=== PATIENT | male | born 1970 | race Caucasian/White ===

== ENCOUNTER 2019-11-08 07:44 | Outpatient (RCR) | payer OTHER, SELFPAY ==
[2019-09-11 09:08] LABS: Basophils Percent Auto 0.4 % (0.2-1.2); Eosinophils Absolute Auto 0.1 K/mm3 (0-0.3); Hematocrit 39.5 % (42.0-52.0); Hemoglobin 12.6 g/dL (14.0-18.0); Lymphocytes Percent Auto 32.7 % (18.3-44.2); Mean Corpuscular HGB Conc 31.9 g/dl (32-36); Mean Corpuscular Hemoglobin 27.1 pg (26-34); Mean Corpuscular Volume 84.9 fl (80-100); Mean Platelet Volume 10.8 fl (7.4-10.4); Monocytes Absolute Auto 0.4 K/mm3 (0.1-0.6); Monocytes Percent Auto 9.6 % (2.6-8.5); Neutrophils Absolute Auto 2.5 K/mm3 (1.3-6.7); Neutrophils Percent Auto 55.3 % (45.5-73.1); Platelet Count Result 184 k/mm3 (150-375); Red Blood Count 4.65 M/mm3 (4.6-6.20); Red Cell Distribution Width 14.6 % (11.5-14.5); White Blood Count 4.6 K/mm3 (4.5-10.0)
[2019-09-11 09:45] LABS: Alanine Aminotransferase 26 U/L (4-50); Albumin Level 4.2 g/dL (3.5-5.1); Alkaline Phosphatase 52 U/L (38-126); Aspartate Amino Transferase 28 U/L (17-59); Bilirubin,Total 0.2 mg/dL (0.2-1.3); Blood Urea Nitrogen 32 mg/dL (9-20); Calcium 9.2 mg/dL (8.4-10.2); Carbon Dioxide 23 mmol/L (22-30); Chloride 107 mmol/L (98-107); Estimated Glomerular Filt Rate 49; Glucose 88 mg/dL (75-110); Potassium 4.2 mmol/L (3.4-5.0); Sodium 138 mmol/L (137-145)
[2019-09-13 13:16] LABS: Everolimus 4.3 ng/mL (***); Tacrolimus Prograf 4.7 mcg/L
[2019-09-14 05:12] LABS: GGT 26 U/L (3-95)
[2019-11-08 08:25] LABS: Basophils Percent Auto 0.4 % (0.2-1.2); Eosinophils Absolute Auto 0.1 K/mm3 (0-0.3); Eosinophils Percent Auto 1.5 % (0-4.4); Hematocrit 41.1 % (42.0-52.0); Hemoglobin 12.8 g/dL (14.0-18.0); Lymphocytes Absolute Auto 1.41 K/mm3 (0.9-3.2); Lymphocytes Percent Auto 30.8 % (18.3-44.2); Mean Corpuscular HGB Conc 31.1 g/dl (32-36); Mean Corpuscular Hemoglobin 26.3 pg (26-34); Mean Corpuscular Volume 84.4 fl (80-100); Mean Platelet Volume 11.6 fl (7.4-10.4); Monocytes Absolute Auto 0.5 K/mm3 (0.1-0.6); Monocytes Percent Auto 11.6 % (2.6-8.5); Neutrophils Absolute Auto 2.6 K/mm3 (1.3-6.7); Neutrophils Percent Auto 55.7 % (45.5-73.1); Platelet Count Result 178 k/mm3 (150-375); Red Blood Count 4.87 M/mm3 (4.6-6.20); Red Cell Distribution Width 14.2 % (11.5-14.5); White Blood Count 4.6 K/mm3 (4.5-10.0)
[2019-11-08 08:36] LABS: Alanine Aminotransferase 27 U/L (4-50); Albumin Level 4.5 g/dL (3.5-5.1); Alkaline Phosphatase 67 U/L (38-126); Aspartate Amino Transferase 23 U/L (17-59); Bilirubin,Total 0.2 mg/dL (0.2-1.3); Blood Urea Nitrogen 35 mg/dL (9-20); Calcium 9.5 mg/dL (8.4-10.2); Carbon Dioxide 22 mmol/L (22-30); Chloride 103 mmol/L (98-107); Estimated Glomerular Filt Rate 49; Glucose 93 mg/dL (75-110); Potassium 4.3 mmol/L (3.4-5.0); Sodium 136 mmol/L (137-145)
[2019-11-11 04:40] LABS: GGT 25 U/L (3-95)
[2019-11-11 07:07] LABS: Tacrolimus Prograf 2.9 mcg/L
== END 2019-12-10 23:59 | disposition home or self-care (01) ==
LOC: ANHLAB 07:44
PROVIDERS: PCP Family Medicine Adolescent Medicine
DX: Z51.81 Encounter for therapeutic drug level monitoring (principal); Z79.899 Other long term (current) drug therapy; Z94.4 Liver transplant status
CPT/HCPCS: 36415; 80053; 80169; 80197; 82977; 85025

== ENCOUNTER 2020-03-17 08:59 | Outpatient (RCR) | payer OTHER, SELFPAY ==
[2020-03-17 09:31] LABS: Basophils Percent Auto 0.5 % (0.2-1.2); Eosinophils Absolute Auto 0.1 K/mm3 (0-0.3); Eosinophils Percent Auto 1.8 % (0-4.4); Hematocrit 36.6 % (42.0-52.0); Hemoglobin 11.8 g/dL (14.0-18.0); Immature Granulocyte Absolute 0.01 K/mm3 (0.00-0.031); Immature Granulocyte Percent A 0.2 % (0-0.5); Lymphocytes Absolute Auto 1.28 K/mm3 (0.9-3.2); Lymphocytes Percent Auto 29.2 % (18.3-44.2); Mean Corpuscular HGB Conc 32.2 g/dl (32-36); Mean Corpuscular Hemoglobin 27.5 pg (26-34); Mean Corpuscular Volume 85.3 fl (80-100); Mean Platelet Volume 10.2 fl (7.4-10.4); Monocytes Absolute Auto 0.6 K/mm3 (0.1-0.6); Neutrophils Absolute Auto 2.4 K/mm3 (1.3-6.7); Neutrophils Percent Auto 55.3 % (45.5-73.1); Platelet Count Result 186 k/mm3 (150-375); Red Blood Count 4.29 M/mm3 (4.6-6.20); Red Cell Distribution Width 13.3 % (11.5-14.5); White Blood Count 4.4 K/mm3 (4.5-10.0)
[2020-03-17 09:43] LABS: Alanine Aminotransferase 51 U/L (4-50); Albumin Level 4.1 g/dL (3.5-5.1); Alkaline Phosphatase 105 U/L (38-126); Aspartate Amino Transferase 42 U/L (17-59); Bilirubin,Total 0.2 mg/dL (0.2-1.3); Blood Urea Nitrogen 27 mg/dL (9-20); Calcium 8.8 mg/dL (8.4-10.2); Carbon Dioxide 23 mmol/L (22-30); Chloride 110 mmol/L (98-107); Estimated Glomerular Filt Rate 46; Glucose 90 mg/dL (75-110); Potassium 4.7 mmol/L (3.4-5.0); Sodium 139 mmol/L (137-145)
[2020-03-18 11:59] LABS: GGT 50 U/L (3-95)
[2020-03-18 21:36] LABS: Everolimus 4.2 ng/mL (***)
== END 2020-06-15 23:59 | disposition home or self-care (01) ==
LOC: ANHLAB 08:59
PROVIDERS: PCP Family Medicine Adolescent Medicine; Visit Provider Internal Medicine Gastroenterology
DX: Z51.81 Encounter for therapeutic drug level monitoring (principal); Z94.4 Liver transplant status; Z79.899 Other long term (current) drug therapy
CPT/HCPCS: 36415; 80053; 80169; 80197; 82977; 85025

== ENCOUNTER 2020-09-15 08:13 | Outpatient (RCR) | payer OTHER, SELFPAY ==
[2020-08-04 08:59] LABS: Basophils Percent Auto 0.5 % (0.2-1.2); Eosinophils Absolute Auto 0.1 K/mm3 (0-0.3); Eosinophils Percent Auto 1.6 % (0-4.4); Hematocrit 38.2 % (42.0-52.0); Hemoglobin 12.2 g/dL (14.0-18.0); Lymphocytes Percent Auto 34.6 % (18.3-44.2); Mean Corpuscular HGB Conc 31.9 g/dl (32-36); Mean Corpuscular Hemoglobin 26.9 pg (26-34); Mean Corpuscular Volume 84.3 fl (80-100); Mean Platelet Volume 10.9 fl (7.4-10.4); Monocytes Absolute Auto 0.4 K/mm3 (0.1-0.6); Monocytes Percent Auto 11.2 % (2.6-8.5); Neutrophils Percent Auto 52.1 % (45.5-73.1); Platelet Count Result 142 k/mm3 (150-375); Red Blood Count 4.53 M/mm3 (4.6-6.20); Red Cell Distribution Width 14.2 % (11.5-14.5); White Blood Count 3.8 K/mm3 (4.5-10.0)
[2020-08-04 09:13] LABS: Alanine Aminotransferase 21 U/L (4-50); Alkaline Phosphatase 58 U/L (38-126); Anion Gap 8 mmol/L (8-16); Aspartate Amino Transferase 25 U/L (17-59); Bilirubin,Total 0.4 mg/dL (0.2-1.3); Blood Urea Nitrogen 30 mg/dL (9-20); Calcium 9.3 mg/dL (8.4-10.2); Carbon Dioxide 25 mmol/L (22-30); Chloride 110 mmol/L (98-107); Estimated Glomerular Filt Rate 46; Glucose 90 mg/dL (75-110); Potassium 4.7 mmol/L (3.4-5.0); Sodium 143 mmol/L (137-145)
[2020-08-06 23:49] LABS: GGT 28 U/L (3-95)
[2020-08-07 07:58] LABS: Tacrolimus Prograf 3.9 mcg/L
[2020-09-15 08:56] LABS: Basophils Percent Auto 0.4 % (0.2-1.2); Eosinophils Percent Auto 0.8 % (0-4.4); Hematocrit 38.3 % (42.0-52.0); Hemoglobin 12.4 g/dL (14.0-18.0); Immature Granulocyte Absolute 0.01 K/mm3 (0.00-0.031); Immature Granulocyte Percent A 0.2 % (0-0.5); Lymphocytes Absolute Auto 1.37 K/mm3 (0.9-3.2); Lymphocytes Percent Auto 28.3 % (18.3-44.2); Mean Corpuscular HGB Conc 32.4 g/dl (32-36); Mean Corpuscular Hemoglobin 27.4 pg (26-34); Mean Corpuscular Volume 84.5 fl (80-100); Mean Platelet Volume 10.4 fl (7.4-10.4); Monocytes Absolute Auto 0.4 K/mm3 (0.1-0.6); Monocytes Percent Auto 8.7 % (2.6-8.5); Neutrophils Percent Auto 61.6 % (45.5-73.1); Platelet Count Result 171 k/mm3 (150-375); Red Blood Count 4.53 M/mm3 (4.6-6.20); Red Cell Distribution Width 14.1 % (11.5-14.5); White Blood Count 4.8 K/mm3 (4.5-10.0)
[2020-09-15 09:11] LABS: Alanine Aminotransferase 23 U/L (4-50); Albumin Level 4.2 g/dL (3.5-5.1); Alkaline Phosphatase 66 U/L (38-126); Anion Gap 7 mmol/L (8-16); Aspartate Amino Transferase 25 U/L (17-59); Bilirubin,Total 0.5 mg/dL (0.2-1.3); Blood Urea Nitrogen 24 mg/dL (9-20); CRP 0.5 mg/dL (<1.0); Calcium 9.5 mg/dL (8.4-10.2); Carbon Dioxide 27 mmol/L (22-30); Chloride 108 mmol/L (98-107); Estimated Glomerular Filt Rate 49; Glucose 88 mg/dL (75-110); Potassium 4.5 mmol/L (3.4-5.0); Sodium 142 mmol/L (137-145)
[2020-09-15 09:21] LABS: Iron 71 ug/dL (49-181)
[2020-09-15 09:30] LABS: Percent Iron Saturation 27 % (20-50)
[2020-09-15 09:53] LABS: Hepatitis B Surface Antigen Negative (Negative)
[2020-09-15 10:10] LABS: Hepatitis B Surface Anti Res Negative
[2020-09-17 22:05] LABS: Tacrolimus Prograf 3.5 mcg/L
[2020-09-18 13:01] LABS: GGT 30 U/L (3-95)
[2020-09-18 20:43] LABS: NIL 0.01 IU/mL; Quantiferon TB Plus, 1T NEGATIVE (NEGATIVE)
[2020-09-23 17:29] LABS: Calprotectin, Stool 16 mcg/g
== END 2020-11-02 23:59 | disposition home or self-care (01) ==
LOC: ANHLAB 08:13
PROVIDERS: PCP Family Medicine Adolescent Medicine; Visit Provider Internal Medicine Gastroenterology
DX: Z51.81 Encounter for therapeutic drug level monitoring (principal); K51.00 Ulcerative (chronic) pancolitis without complications; R19.7 Diarrhea, unspecified; Z94.4 Liver transplant status; Z79.899 Other long term (current) drug therapy
CPT/HCPCS: 36415; 80053; 80197; 82728; 82977; 83540; 83550; 83993; 84443; 85025; 86140; 86480; 86706; 87177; 87209; 87324; 87340

== ENCOUNTER 2021-03-26 10:16 | Outpatient (CLI) | payer OTHER, SELFPAY ==
[2021-04-05 00:57] LABS: Calprotectin, Stool 42 mcg/g
== END 2021-03-26 10:17 | disposition home or self-care (01) ==
PROVIDERS: PCP Family Medicine Adolescent Medicine
DX: K51.00 Ulcerative (chronic) pancolitis without complications (principal); R19.7 Diarrhea, unspecified
CPT/HCPCS: 83993

== ENCOUNTER 2021-06-18 08:33 | Outpatient (RCR) | payer OTHER, SELFPAY ==
[2021-06-18 09:00] LABS: Basophils Percent Auto 0.4 % (0.2-1.2); Eosinophils Absolute Auto 0.1 K/mm3 (0-0.3); Eosinophils Percent Auto 1.6 % (0-4.4); Hematocrit 39.1 % (42.0-52.0); Hemoglobin 12.3 g/dL (14.0-18.0); Immature Granulocyte Absolute 0.01 K/mm3 (0.00-0.031); Immature Granulocyte Percent A 0.2 % (0-0.5); Immature Platelet Fraction Pct 5.7 % (0.9-11.2); Lymphocytes Absolute Auto 1.61 K/mm3 (0.9-3.2); Lymphocytes Percent Auto 32.7 % (18.3-44.2); Mean Corpuscular HGB Conc 31.5 g/dl (32-36); Mean Corpuscular Hemoglobin 26.7 pg (26-34); Mean Corpuscular Volume 84.8 fl (80-100); Mean Platelet Volume 10.8 fl (7.4-10.4); Monocytes Absolute Auto 0.6 K/mm3 (0.1-0.6); Monocytes Percent Auto 11.8 % (2.6-8.5); Neutrophils Absolute Auto 2.6 K/mm3 (1.3-6.7); Neutrophils Percent Auto 53.3 % (45.5-73.1); Platelet Count Result 146 k/mm3 (150-375); Red Blood Count 4.61 M/mm3 (4.6-6.20); Red Cell Distribution Width 14.4 % (11.5-14.5); White Blood Count 4.9 K/mm3 (4.5-10.0)
[2021-06-18 09:08] LABS: Alanine Aminotransferase 24 U/L (4-50); Albumin Level 4.2 g/dL (3.5-5.1); Alkaline Phosphatase 71 U/L (38-126); Anion Gap 6 mmol/L (8-16); Aspartate Amino Transferase 26 U/L (17-59); Bilirubin,Total 0.3 mg/dL (0.2-1.3); Blood Urea Nitrogen 31 mg/dL (9-20); Calcium 9.2 mg/dL (8.4-10.2); Carbon Dioxide 25 mmol/L (22-30); Chloride 105 mmol/L (98-107); Estimated Glomerular Filt Rate 49; Glucose 94 mg/dL (65-110); Potassium 4.2 mmol/L (3.4-5.0); Sodium 136 mmol/L (137-145)
[2021-06-21 05:50] LABS: Tacrolimus Prograf 4.1 mcg/L
[2021-06-21 20:06] LABS: GGT 38 U/L (3-95)
== END 2021-09-16 23:59 | disposition home or self-care (01) ==
LOC: ANHLAB 08:33
PROVIDERS: PCP Family Medicine Adolescent Medicine; Visit Provider Internal Medicine Gastroenterology
DX: Z51.81 Encounter for therapeutic drug level monitoring (principal); Z94.4 Liver transplant status; Z79.899 Other long term (current) drug therapy
CPT/HCPCS: 36415; 80053; 80169; 80197; 82977; 85025; 85055

== ENCOUNTER 2021-10-28 08:42 | Outpatient (RCR) | payer OTHER, SELFPAY ==
[2021-10-28 10:12] LABS: Basophils Percent Auto 0.3 % (0.2-1.2); Eosinophils Absolute Auto 0.1 K/mm3 (0-0.3); Hematocrit 38.4 % (42.0-52.0); Hemoglobin 12.2 g/dL (14.0-18.0); Immature Granulocyte Absolute 0.01 K/mm3 (0.00-0.031); Immature Granulocyte Percent A 0.3 % (0-0.5); Lymphocytes Absolute Auto 1.33 K/mm3 (0.9-3.2); Lymphocytes Percent Auto 33.8 % (18.3-44.2); Mean Corpuscular HGB Conc 31.8 g/dl (32-36); Mean Corpuscular Hemoglobin 26.9 pg (26-34); Mean Corpuscular Volume 84.6 fl (80-100); Mean Platelet Volume 10.9 fl (7.4-10.4); Monocytes Absolute Auto 0.6 K/mm3 (0.1-0.6); Neutrophils Percent Auto 49.6 % (45.5-73.1); Platelet Count Result 165 k/mm3 (150-375); Red Blood Count 4.54 M/mm3 (4.6-6.20); Red Cell Distribution Width 14.3 % (11.5-14.5); White Blood Count 3.9 K/mm3 (4.5-10.0)
[2021-10-28 10:30] LABS: Alanine Aminotransferase 26 U/L (4-50); Albumin Level 4.7 g/dL (3.5-5.1); Alkaline Phosphatase 100 U/L (38-126); Anion Gap 10 mmol/L (8-16); Aspartate Amino Transferase 27 U/L (17-59); Bilirubin,Total 0.3 mg/dL (0.2-1.3); Blood Urea Nitrogen 30 mg/dL (9-20); Calcium 9.1 mg/dL (8.4-10.2); Carbon Dioxide 19 mmol/L (22-30); Chloride 111 mmol/L (98-107); Estimated Glomerular Filt Rate 45; Glucose 83 mg/dL (65-110); Potassium 4.5 mmol/L (3.4-5.0); Sodium 140 mmol/L (137-145)
[2021-10-31 15:41] LABS: GGT 62 U/L (3-95)
[2021-11-02 00:06] LABS: Everolimus 3.3 ng/mL (***); Tacrolimus Prograf 4.4 mcg/L
== END 2022-01-26 23:59 | disposition home or self-care (01) ==
LOC: ANHLAB 08:42
PROVIDERS: PCP Family Medicine Adolescent Medicine; Visit Provider Internal Medicine Gastroenterology
DX: Z94.4 Liver transplant status (principal); Z79.899 Other long term (current) drug therapy
CPT/HCPCS: 36415; 80053; 80169; 80197; 82977; 85025

== ENCOUNTER 2022-02-15 08:46 | Outpatient (CLI) | payer OTHER, SELFPAY ==
[2022-02-15 10:47] LABS: Folic Acid 12.5 ng/mL (2.76->20)
[2022-02-22 12:28] LABS: Testosterone Total 220 ng/dL (250-1100)
== END 2022-02-15 08:47 | disposition home or self-care (01) ==
LOC: ANHLAB 08:48
PROVIDERS: PCP Family Medicine Adolescent Medicine; Visit Provider Family Medicine Adolescent Medicine
DX: R53.83 Other fatigue (principal); D64.9 Anemia, unspecified
CPT/HCPCS: 36415; 82607; 82746; 84403; 84443

== ENCOUNTER 2022-03-08 08:49 | Outpatient (CLI) | payer OTHER, SELFPAY ==
[2022-03-08 09:47] LABS: Iron 29 ug/dL (49-181)
[2022-03-08 09:59] LABS: Percent Iron Saturation 12 % (20-50)
[2022-03-12 16:48] LABS: Testosterone Free 49.5 pg/mL (35.0-155.0); Testosterone Total 180 ng/dL (250-1100)
== END 2022-03-08 08:50 | disposition home or self-care (01) ==
PROVIDERS: PCP Family Medicine Adolescent Medicine; Visit Provider Physician Assistant
DX: D64.9 Anemia, unspecified (principal); E29.1 Testicular hypofunction
CPT/HCPCS: 36415; 80053; 80169; 80197; 82728; 82977; 83540; 83550; 84402; 84403; 85025

== ENCOUNTER 2022-04-26 08:37 | Outpatient (CLI) | payer OTHER, SELFPAY ==
[2022-04-29 09:51] LABS: Testosterone Total 123 ng/dL (250-1100)
[2022-05-01 18:43] LABS: Calprotectin, Stool 16 mcg/g
== END 2022-04-26 08:38 | disposition home or self-care (01) ==
LOC: ANHLAB 08:43
PROVIDERS: PCP Family Medicine Adolescent Medicine; Visit Provider Physician Assistant
DX: E29.1 Testicular hypofunction (principal); K51.00 Ulcerative (chronic) pancolitis without complications
CPT/HCPCS: 36415; 80053; 80169; 80197; 82977; 83993; 84403; 85025

== ENCOUNTER 2022-04-26 08:44 | Outpatient (RCR) | payer OTHER, SELFPAY ==
[2022-01-28 09:29] LABS: Basophils Percent Auto 0.5 % (0.2-1.2); Eosinophils Absolute Auto 0.1 K/mm3 (0-0.3); Eosinophils Percent Auto 1.7 % (0-4.4); Hemoglobin 11.6 g/dL (14.0-18.0); Lymphocytes Absolute Auto 1.49 K/mm3 (0.9-3.2); Lymphocytes Percent Auto 36.5 % (18.3-44.2); Mean Corpuscular HGB Conc 31.4 g/dl (32-36); Mean Corpuscular Hemoglobin 26.5 pg (26-34); Mean Corpuscular Volume 84.7 fl (80-100); Mean Platelet Volume 10.6 fl (7.4-10.4); Monocytes Absolute Auto 0.6 K/mm3 (0.1-0.6); Monocytes Percent Auto 15.7 % (2.6-8.5); Neutrophils Absolute Auto 1.9 K/mm3 (1.3-6.7); Neutrophils Percent Auto 45.6 % (45.5-73.1); Platelet Count Result 154 k/mm3 (150-375); Red Blood Count 4.37 M/mm3 (4.6-6.20); Red Cell Distribution Width 14.5 % (11.5-14.5); White Blood Count 4.1 K/mm3 (4.5-10.0)
[2022-01-28 09:47] LABS: Alanine Aminotransferase 22 U/L (4-50); Albumin Level 4.3 g/dL (3.5-5.1); Alkaline Phosphatase 71 U/L (38-126); Anion Gap 6 mmol/L (8-16); Aspartate Amino Transferase 25 U/L (17-59); Bilirubin,Total 0.3 mg/dL (0.2-1.3); Blood Urea Nitrogen 36 mg/dL (9-20); Calcium 8.7 mg/dL (8.4-10.2); Carbon Dioxide 23 mmol/L (22-30); Chloride 110 mmol/L (98-107); Estimated Glomerular Filt Rate 37; Glucose 87 mg/dL (65-110); Sodium 139 mmol/L (137-145)
[2022-01-28 10:23] LABS: Potassium 4.3 mmol/L (3.4-5.0)
[2022-01-31 21:18] LABS: GGT 47 U/L (3-95)
[2022-02-01 20:19] LABS: Everolimus 4.7 ng/mL (***); Tacrolimus Prograf 3.6 mcg/L
[2022-02-15 09:25] LABS: Basophils Percent Auto 0.2 % (0.2-1.2); Eosinophils Absolute Auto 0.1 K/mm3 (0-0.3); Eosinophils Percent Auto 2.1 % (0-4.4); Hematocrit 37.3 % (42.0-52.0); Hemoglobin 11.7 g/dL (14.0-18.0); Immature Granulocyte Absolute 0.01 K/mm3 (0.00-0.031); Immature Granulocyte Percent A 0.2 % (0-0.5); Lymphocytes Absolute Auto 1.29 K/mm3 (0.9-3.2); Lymphocytes Percent Auto 30.4 % (18.3-44.2); Mean Corpuscular HGB Conc 31.4 g/dl (32-36); Mean Corpuscular Hemoglobin 26.6 pg (26-34); Mean Corpuscular Volume 84.8 fl (80-100); Mean Platelet Volume 10.9 fl (7.4-10.4); Monocytes Absolute Auto 0.5 K/mm3 (0.1-0.6); Monocytes Percent Auto 11.8 % (2.6-8.5); Neutrophils Absolute Auto 2.4 K/mm3 (1.3-6.7); Neutrophils Percent Auto 55.3 % (45.5-73.1); Platelet Count Result 150 k/mm3 (150-375); Red Cell Distribution Width 14.3 % (11.5-14.5); White Blood Count 4.3 K/mm3 (4.5-10.0)
[2022-02-15 09:41] LABS: Alanine Aminotransferase 30 U/L (4-50); Albumin Level 4.3 g/dL (3.5-5.1); Alkaline Phosphatase 82 U/L (38-126); Anion Gap 7 mmol/L (8-16); Aspartate Amino Transferase 30 U/L (17-59); Bilirubin,Total 0.2 mg/dL (0.2-1.3); Blood Urea Nitrogen 32 mg/dL (9-20); Calcium 9.3 mg/dL (8.4-10.2); Carbon Dioxide 26 mmol/L (22-30); Chloride 108 mmol/L (98-107); Estimated Glomerular Filt Rate 42; Glucose 95 mg/dL (65-110); Potassium 4.6 mmol/L (3.4-5.0); Sodium 141 mmol/L (137-145)
[2022-02-18 15:05] LABS: Everolimus 5.3 ng/mL (***); Tacrolimus Prograf 3.4 mcg/L
[2022-02-18 17:45] LABS: GGT 55 U/L (3-95)
[2022-03-08 09:11] LABS: Basophils Percent Auto 0.2 % (0.2-1.2); Eosinophils Absolute Auto 0.1 K/mm3 (0-0.3); Eosinophils Percent Auto 1.1 % (0-4.4); Hematocrit 37.3 % (42.0-52.0); Immature Granulocyte Percent A 2.4 % (0-0.5); Lymphocytes Absolute Auto 1.16 K/mm3 (0.9-3.2); Lymphocytes Percent Auto 13.9 % (18.3-44.2); Mean Corpuscular HGB Conc 32.2 g/dl (32-36); Mean Corpuscular Hemoglobin 26.4 pg (26-34); Mean Platelet Volume 9.8 fl (7.4-10.4); Monocytes Percent Auto 11.8 % (2.6-8.5); Neutrophils Absolute Auto 5.9 K/mm3 (1.3-6.7); Neutrophils Percent Auto 70.6 % (45.5-73.1); Platelet Count Result 286 k/mm3 (150-375); Red Blood Count 4.55 M/mm3 (4.6-6.20); White Blood Count 8.3 K/mm3 (4.5-10.0)
[2022-03-08 09:29] LABS: Alanine Aminotransferase 20 U/L (6-50); Albumin Level 3.7 g/dL (3.5-5.1); Alkaline Phosphatase 80 U/L (38-126); Anion Gap 5 mmol/L (8-16); Aspartate Amino Transferase 20 U/L (17-59); Bilirubin,Total 0.2 mg/dL (0.2-1.3); Blood Urea Nitrogen 40 mg/dL (9-20); Calcium 8.7 mg/dL (8.4-10.2); Carbon Dioxide 26 mmol/L (22-30); Chloride 107 mmol/L (98-107); Estimated Glomerular Filt Rate 40; Glucose 91 mg/dL (65-110); Potassium 4.2 mmol/L (3.4-5.0); Sodium 138 mmol/L (137-145)
[2022-03-10 16:04] LABS: GGT 57 U/L (3-95)
[2022-03-10 20:38] LABS: Tacrolimus Prograf 4.3 mcg/L
[2022-04-26 09:19] LABS: Basophils Percent Auto 0.4 % (0.2-1.2); Eosinophils Absolute Auto 0.1 K/mm3 (0-0.3); Hematocrit 36.6 % (42.0-52.0); Hemoglobin 11.2 g/dL (14.0-18.0); Immature Granulocyte Absolute 0.01 K/mm3 (0.00-0.031); Immature Granulocyte Percent A 0.2 % (0-0.5); Lymphocytes Absolute Auto 1.28 K/mm3 (0.9-3.2); Lymphocytes Percent Auto 27.9 % (18.3-44.2); Mean Corpuscular HGB Conc 30.6 g/dl (32-36); Mean Corpuscular Hemoglobin 26.5 pg (26-34); Mean Corpuscular Volume 86.5 fl (80-100); Mean Platelet Volume 10.4 fl (7.4-10.4); Monocytes Absolute Auto 0.6 K/mm3 (0.1-0.6); Monocytes Percent Auto 13.3 % (2.6-8.5); Neutrophils Absolute Auto 2.6 K/mm3 (1.3-6.7); Neutrophils Percent Auto 56.2 % (45.5-73.1); Platelet Count Result 224 k/mm3 (150-375); Red Blood Count 4.23 M/mm3 (4.6-6.20); Red Cell Distribution Width 14.8 % (11.5-14.5); White Blood Count 4.6 K/mm3 (4.5-10.0)
[2022-04-26 09:34] LABS: Alanine Aminotransferase 17 U/L (6-50); Albumin Level 4.2 g/dL (3.5-5.1); Alkaline Phosphatase 78 U/L (38-126); Anion Gap 7 mmol/L (8-16); Aspartate Amino Transferase 25 U/L (17-59); Bilirubin,Total 0.3 mg/dL (0.2-1.3); Blood Urea Nitrogen 35 mg/dL (9-20); Calcium 8.6 mg/dL (8.4-10.2); Carbon Dioxide 23 mmol/L (22-30); Chloride 110 mmol/L (98-107); Estimated Glomerular Filt Rate 33; Glucose 93 mg/dL (65-110); Potassium 4.5 mmol/L (3.4-5.0); Sodium 140 mmol/L (137-145)
[2022-04-28 04:00] LABS: GGT 41 U/L (3-95)
[2022-04-28 08:19] LABS: Everolimus 7.4 ng/mL (***); Tacrolimus Prograf 4.5 mcg/L
== END 2022-04-28 23:59 | disposition home or self-care (01) ==
LOC: ANHLAB 08:44
PROVIDERS: PCP Family Medicine Adolescent Medicine; Visit Provider Internal Medicine Gastroenterology
DX: Z94.4 Liver transplant status (principal); Z79.899 Other long term (current) drug therapy
CPT/HCPCS: 36415; 80053; 80169; 80197; 82977; 85025

== ENCOUNTER 2022-06-02 10:05 | Outpatient (RCR) | payer OTHER, SELFPAY ==
[2022-06-02 10:58] LABS: Basophils Percent Auto 0.4 % (0.2-1.2); Eosinophils Absolute Auto 0.1 K/mm3 (0-0.3); Eosinophils Percent Auto 1.2 % (0-4.4); Hematocrit 38.2 % (42.0-52.0); Hemoglobin 11.9 g/dL (14.0-18.0); Immature Granulocyte Absolute 0.03 K/mm3 (0.00-0.031); Immature Granulocyte Percent A 0.5 % (0-0.5); Lymphocytes Absolute Auto 1.06 K/mm3 (0.9-3.2); Lymphocytes Percent Auto 18.8 % (18.3-44.2); Mean Corpuscular HGB Conc 31.2 g/dl (32-36); Mean Corpuscular Hemoglobin 25.7 pg (26-34); Mean Corpuscular Volume 82.5 fl (80-100); Mean Platelet Volume 10.5 fl (7.4-10.4); Monocytes Absolute Auto 1.1 K/mm3 (0.1-0.6); Monocytes Percent Auto 19.5 % (2.6-8.5); Neutrophils Absolute Auto 3.4 K/mm3 (1.3-6.7); Neutrophils Percent Auto 59.6 % (45.5-73.1); Platelet Count Result 190 k/mm3 (150-375); Red Blood Count 4.63 M/mm3 (4.6-6.20); Red Cell Distribution Width 13.8 % (11.5-14.5); White Blood Count 5.6 K/mm3 (4.5-10.0)
[2022-06-02 12:30] LABS: Alanine Aminotransferase 53 U/L (6-50); Albumin Level 4.1 g/dL (3.5-5.1); Alkaline Phosphatase 129 U/L (38-126); Anion Gap 12 mmol/L (8-16); Aspartate Amino Transferase 42 U/L (17-59); Bilirubin,Total 0.4 mg/dL (0.2-1.3); Blood Urea Nitrogen 21 mg/dL (9-20); Calcium 9.6 mg/dL (8.4-10.2); Carbon Dioxide 25 mmol/L (22-30); Chloride 101 mmol/L (98-107); Estimated Glomerular Filt Rate 37; Glucose 93 mg/dL (65-110); Potassium 4.1 mmol/L (3.4-5.0); Sodium 138 mmol/L (137-145)
[2022-06-04 13:29] LABS: Everolimus 6.2 ng/mL (***); Tacrolimus Prograf 3.7 mcg/L
[2022-06-04 14:03] LABS: GGT 106 U/L (3-95)
== END 2022-08-31 23:59 | disposition home or self-care (01) ==
LOC: ANHLAB 10:05
PROVIDERS: PCP Family Medicine Adolescent Medicine; Visit Provider Internal Medicine Gastroenterology
DX: Z51.81 Encounter for therapeutic drug level monitoring (principal); Z94.4 Liver transplant status; Z79.899 Other long term (current) drug therapy
CPT/HCPCS: 36415; 80053; 80169; 80197; 82977; 85025

== ENCOUNTER 2022-06-03 10:17 | Outpatient (CLI) | payer OTHER, SELFPAY ==
[2022-06-03 11:09] LABS: Appearance Urine Clear (Clear); Bilirubin Urine Negative (Negative); Blood Urine Trace-lysed (Negative); Color Urine Yellow (Yellow); Glucose Urine UA Negative (Negative); Ketones Urine Negative (Negative); Leukocyte Esterase Ur Negative LEU/UL (Negative); Nitrate Urine Negative (Negative); Protein Urine Trace mg/dL (Negative); Urobilinogen Urine 0.2 mg/dL (<2.0)
[2022-06-03 11:14] LABS: Mucus Urine Rare /lpf; RBC Urine 0-2 /hpf (0-2)
[2022-06-03 11:33] LABS: Add Urine Microscopic? YES
[2022-06-06 01:20] LABS: CMV DNA Quant PCR IU/mL Not Detected; Cytomegalovirus DNA Quant PCR Not Detected log IU/mL; Cytomegalovirus DNA Source Plasma
== END 2022-06-03 10:18 | disposition home or self-care (01) ==
LOC: ANHLAB 10:20
PROVIDERS: PCP Family Medicine Adolescent Medicine; Visit Provider Internal Medicine Gastroenterology
DX: Z94.4 Liver transplant status (principal)
CPT/HCPCS: 36415; 81001; 86666; 87040; 87497

== ENCOUNTER 2022-09-07 09:05 | Outpatient (CLI) | payer OTHER, SELFPAY ==
[2022-09-11 12:27] LABS: Testosterone Total 199 ng/dL (250-1100)
== END 2022-09-07 09:06 | disposition home or self-care (01) ==
LOC: ANHLAB 09:06
PROVIDERS: PCP Family Medicine Adolescent Medicine; Visit Provider Family Medicine Adolescent Medicine
DX: E29.1 Testicular hypofunction (principal)
CPT/HCPCS: 36415; 80053; 80169; 80197; 82977; 84403; 85025

== ENCOUNTER 2022-09-07 09:09 | Outpatient (RCR) | payer OTHER, SELFPAY ==
[2022-09-07 09:39] LABS: Basophils Percent Auto 0.3 % (0.2-1.2); Eosinophils Absolute Auto 0.1 K/mm3 (0-0.3); Eosinophils Percent Auto 1.8 % (0-4.4); Hematocrit 42.6 % (42.0-52.0); Hemoglobin 13.7 g/dL (14.0-18.0); Immature Granulocyte Absolute 0.01 K/mm3 (0.00-0.031); Immature Granulocyte Percent A 0.1 % (0-0.5); Lymphocytes Absolute Auto 1.69 K/mm3 (0.9-3.2); Lymphocytes Percent Auto 23.8 % (18.3-44.2); Mean Corpuscular HGB Conc 32.2 g/dl (32-36); Mean Corpuscular Hemoglobin 25.9 pg (26-34); Mean Corpuscular Volume 80.5 fl (80-100); Monocytes Absolute Auto 0.8 K/mm3 (0.1-0.6); Monocytes Percent Auto 10.8 % (2.6-8.5); Neutrophils Absolute Auto 4.5 K/mm3 (1.3-6.7); Neutrophils Percent Auto 63.2 % (45.5-73.1); Platelet Count Result 205 k/mm3 (150-375); Red Blood Count 5.29 M/mm3 (4.6-6.20); Red Cell Distribution Width 16.9 % (11.5-14.5); White Blood Count 7.1 K/mm3 (4.5-10.0)
[2022-09-07 09:52] LABS: Alanine Aminotransferase 28 U/L (6-50); Albumin Level 4.5 g/dL (3.5-5.1); Alkaline Phosphatase 105 U/L (38-126); Anion Gap 12 mmol/L (8-16); Aspartate Amino Transferase 26 U/L (17-59); Bilirubin,Total 0.5 mg/dL (0.2-1.3); Blood Urea Nitrogen 29 mg/dL (9-20); Calcium 8.5 mg/dL (8.4-10.2); Carbon Dioxide 25 mmol/L (22-30); Chloride 105 mmol/L (98-107); Estimated Glomerular Filt Rate 35; Glucose 89 mg/dL (65-110); Potassium 4.6 mmol/L (3.4-5.0); Sodium 142 mmol/L (137-145)
[2022-09-09 16:01] LABS: GGT 57 U/L (3-95)
[2022-09-09 23:37] LABS: Everolimus 2.9 ng/mL (***)
== END 2022-09-07 10:00 | disposition home or self-care (01) ==
LOC: ANHLAB 09:09
PROVIDERS: PCP Family Medicine Adolescent Medicine; Visit Provider Internal Medicine Gastroenterology
DX: Z51.81 Encounter for therapeutic drug level monitoring (principal); Z94.4 Liver transplant status; Z79.899 Other long term (current) drug therapy
CPT/HCPCS: 36415; 80053; 80169; 80197; 82977; 85025

== ENCOUNTER 2023-01-13 08:54 | Outpatient (RCR) | payer OTHER, SELFPAY ==
[2023-01-13 09:51] LABS: Basophils Percent Auto 0.6 % (0.2-1.2); Eosinophils Absolute Auto 0.1 K/mm3 (0-0.3); Eosinophils Percent Auto 1.5 % (0-4.4); Hematocrit 42.1 % (42.0-52.0); Hemoglobin 13.6 g/dL (14.0-18.0); Immature Granulocyte Absolute 0.02 K/mm3 (0.00-0.031); Immature Granulocyte Percent A 0.4 % (0-0.5); Lymphocytes Absolute Auto 1.37 K/mm3 (0.9-3.2); Lymphocytes Percent Auto 26.4 % (18.3-44.2); Mean Corpuscular HGB Conc 32.3 g/dl (32-36); Mean Corpuscular Hemoglobin 26.9 pg (26-34); Mean Corpuscular Volume 83.2 fl (80-100); Mean Platelet Volume 10.7 fl (7.4-10.4); Monocytes Absolute Auto 0.9 K/mm3 (0.1-0.6); Monocytes Percent Auto 18.1 % (2.6-8.5); Neutrophils Absolute Auto 2.7 K/mm3 (1.3-6.7); Platelet Count Result 184 k/mm3 (150-375); Red Blood Count 5.06 M/mm3 (4.6-6.20); Red Cell Distribution Width 14.9 % (11.5-14.5); White Blood Count 5.2 K/mm3 (4.5-10.0)
[2023-01-13 09:56] LABS: Alanine Aminotransferase 51 U/L (6-50); Albumin Level 4.2 g/dL (3.5-5.1); Alkaline Phosphatase 109 U/L (38-126); Anion Gap 5 mmol/L (8-16); Aspartate Amino Transferase 35 U/L (17-59); Bilirubin,Total 0.6 mg/dL (0.2-1.3); Blood Urea Nitrogen 24 mg/dL (9-20); Calcium 8.4 mg/dL (8.4-10.2); Carbon Dioxide 31 mmol/L (22-30); Chloride 103 mmol/L (98-107); Estimated Glomerular Filt Rate 40; Glucose 86 mg/dL (65-110); Potassium 4.2 mmol/L (3.4-5.0); Sodium 139 mmol/L (137-145)
[2023-01-16 19:32] LABS: Everolimus 4.6 ng/mL (***); GGT 91 U/L (3-95); Tacrolimus Prograf 3.6 mcg/L
== END 2023-04-13 23:59 | disposition home or self-care (01) ==
LOC: ANHLAB 08:54
PROVIDERS: PCP Family Medicine Adolescent Medicine; Visit Provider Internal Medicine Gastroenterology
DX: Z51.81 Encounter for therapeutic drug level monitoring (principal); Z94.4 Liver transplant status; Z79.899 Other long term (current) drug therapy
CPT/HCPCS: 36415; 80053; 80169; 80197; 82977; 85025

== ENCOUNTER 2023-04-27 13:32 | Outpatient (NON) | payer OTHER, SELFPAY ==
[2023-05-03 19:12] LABS: Calprotectin, Stool 106 mcg/g
== END 2023-04-27 13:33 | disposition home or self-care (01) ==
PROVIDERS: PCP Family Medicine Adolescent Medicine
DX: K51.00 Ulcerative (chronic) pancolitis without complications (principal); R19.7 Diarrhea, unspecified
CPT/HCPCS: 36415; 80053; 80169; 80197; 82977; 83993; 85025

== ENCOUNTER 2023-06-28 07:53 | Outpatient (RCR) | payer OTHER, SELFPAY ==
[2023-04-27 09:42] LABS: Basophils Percent Auto 0.5 % (0.2-1.2); Eosinophils Absolute Auto 0.1 K/mm3 (0-0.3); Eosinophils Percent Auto 2.1 % (0-4.4); Hematocrit 42.3 % (42.0-52.0); Hemoglobin 13.6 g/dL (14.0-18.0); Immature Granulocyte Absolute 0.01 K/mm3 (0.00-0.031); Immature Granulocyte Percent A 0.2 % (0-0.5); Lymphocytes Absolute Auto 1.86 K/mm3 (0.9-3.2); Lymphocytes Percent Auto 32.5 % (18.3-44.2); Mean Corpuscular HGB Conc 32.2 g/dl (32-36); Mean Corpuscular Hemoglobin 26.5 pg (26-34); Mean Corpuscular Volume 82.3 fl (80-100); Monocytes Absolute Auto 0.7 K/mm3 (0.1-0.6); Monocytes Percent Auto 12.4 % (2.6-8.5); Neutrophils Percent Auto 52.3 % (45.5-73.1); Platelet Count Result 192 k/mm3 (150-375); Red Blood Count 5.14 M/mm3 (4.6-6.20); Red Cell Distribution Width 14.3 % (11.5-14.5); White Blood Count 5.7 K/mm3 (4.5-10.0)
[2023-04-27 09:54] LABS: Alanine Aminotransferase 35 U/L (6-50); Albumin Level 4.1 g/dL (3.5-5.1); Alkaline Phosphatase 78 U/L (38-126); Anion Gap 6 mmol/L (8-16); Aspartate Amino Transferase 30 U/L (17-59); Bilirubin,Total 0.4 mg/dL (0.2-1.3); Blood Urea Nitrogen 29 mg/dL (9-20); Calcium 9.1 mg/dL (8.4-10.2); Carbon Dioxide 29 mmol/L (22-30); Chloride 106 mmol/L (98-107); Estimated Glomerular Filt Rate 39; Glucose 92 mg/dL (65-110); Potassium 4.1 mmol/L (3.4-5.0); Sodium 141 mmol/L (137-145)
[2023-04-29 19:09] LABS: Everolimus 3.1 ng/mL (***); Tacrolimus Prograf 3.9 mcg/L
[2023-04-29 19:30] LABS: GGT 66 U/L (3-85)
[2023-06-28 09:46] LABS: Basophils Percent Auto 0.3 % (0.2-1.2); Eosinophils Absolute Auto 0.1 K/mm3 (0-0.3); Eosinophils Percent Auto 1.2 % (0-4.4); Hemoglobin 13.5 g/dL (14.0-18.0); Immature Granulocyte Absolute 0.02 K/mm3 (0.00-0.031); Immature Granulocyte Percent A 0.3 % (0-0.5); Lymphocytes Percent Auto 26.7 % (18.3-44.2); Mean Corpuscular HGB Conc 31.4 g/dl (32-36); Mean Corpuscular Hemoglobin 26.7 pg (26-34); Mean Corpuscular Volume 85.1 fl (80-100); Monocytes Absolute Auto 0.8 K/mm3 (0.1-0.6); Monocytes Percent Auto 12.2 % (2.6-8.5); Neutrophils Percent Auto 59.3 % (45.5-73.1); Platelet Count Result 211 k/mm3 (150-375); Red Blood Count 5.05 M/mm3 (4.6-6.20); Red Cell Distribution Width 14.8 % (11.5-14.5); White Blood Count 6.7 K/mm3 (4.5-10.0)
[2023-06-28 10:00] LABS: Alanine Aminotransferase 27 U/L (6-50); Albumin Level 4.4 g/dL (3.5-5.1); Alkaline Phosphatase 66 U/L (38-126); Anion Gap 7 mmol/L (8-16); Aspartate Amino Transferase 23 U/L (17-59); Bilirubin,Total 0.4 mg/dL (0.2-1.3); Blood Urea Nitrogen 35 mg/dL (9-20); Carbon Dioxide 25 mmol/L (22-30); Chloride 107 mmol/L (98-107); Estimated Glomerular Filt Rate 39; Glucose 82 mg/dL (65-110); Potassium 4.3 mmol/L (3.4-5.0); Sodium 139 mmol/L (137-145)
[2023-06-30 14:51] LABS: Everolimus 3.2 ng/mL (***); Tacrolimus Prograf 3.8 mcg/L
[2023-07-01 06:05] LABS: GGT 70 U/L (3-85)
== END 2023-07-26 23:59 | disposition home or self-care (01) ==
LOC: ANHLAB 07:53
PROVIDERS: PCP Family Medicine Adolescent Medicine; Visit Provider Internal Medicine Gastroenterology
DX: Z51.81 Encounter for therapeutic drug level monitoring (principal); Z94.4 Liver transplant status; Z79.899 Other long term (current) drug therapy
CPT/HCPCS: 36415; 80053; 80169; 80197; 82977; 85025

== ENCOUNTER 2023-06-28 07:54 | Outpatient (CLI) | payer OTHER, SELFPAY ==
[2023-06-28 10:28] LABS: Prostate Specific Antigen 0.9 ng/mL (< OR = 4.0)
[2023-07-01 12:28] LABS: Testosterone Total 202 ng/dL (250-1100)
== END 2023-06-28 07:55 | disposition home or self-care (01) ==
LOC: ANHLAB 07:55
PROVIDERS: PCP Family Medicine Adolescent Medicine; Visit Provider Family Medicine Adolescent Medicine
DX: E29.1 Testicular hypofunction (principal); Z12.5 Encounter for screening for malignant neoplasm of prostate
CPT/HCPCS: 36415; 80053; 80169; 80197; 82977; 84153; 84403; 85025; G0103

== ENCOUNTER 2023-08-03 08:08 | Outpatient (CLI) | payer OTHER, SELFPAY ==
[2023-08-03 09:23] LABS: Basophils Percent Auto 0.5 % (0.2-1.2); Eosinophils Absolute Auto 0.1 K/mm3 (0-0.3); Eosinophils Percent Auto 1.8 % (0-4.4); Hematocrit 43.2 % (42.0-52.0); Immature Granulocyte Absolute 0.02 K/mm3 (0.00-0.031); Immature Granulocyte Percent A 0.4 % (0-0.5); Lymphocytes Absolute Auto 1.76 K/mm3 (0.9-3.2); Lymphocytes Percent Auto 31.7 % (18.3-44.2); Mean Corpuscular HGB Conc 32.4 g/dl (32-36); Mean Corpuscular Hemoglobin 27.3 pg (26-34); Mean Corpuscular Volume 84.2 fl (80-100); Mean Platelet Volume 10.2 fl (7.4-10.4); Monocytes Absolute Auto 0.6 K/mm3 (0.1-0.6); Monocytes Percent Auto 9.9 % (2.6-8.5); Neutrophils Absolute Auto 3.1 K/mm3 (1.3-6.7); Neutrophils Percent Auto 55.7 % (45.5-73.1); Platelet Count Result 250 k/mm3 (150-375); Red Blood Count 5.13 M/mm3 (4.6-6.20); Red Cell Distribution Width 14.2 % (11.5-14.5); White Blood Count 5.6 K/mm3 (4.5-10.0)
[2023-08-03 09:27] LABS: Appearance Urine Clear (Clear); Bilirubin Urine Negative (Negative); Blood Urine Negative (Negative); Color Urine Yellow (Yellow); Glucose Urine UA Negative (Negative); Ketones Urine Negative (Negative); Leukocyte Esterase Ur Negative LEU/UL (NEGATIVE); Nitrate Urine Negative (Negative); Protein Urine Negative (Negative); Specific Grav Ur 1.015 (1.001-1.035); Urobilinogen Urine 0.2 mg/dL (<2.0); pH Urine 5.5 (5.0-9.0)
[2023-08-03 09:35] LABS: Add Urine Microscopic? NO
[2023-08-03 09:49] LABS: Creatinine Urine 124.5 mg/dL; Total Protein Urine Random 11 mg/dL; Ur Ttl Prot Creatinine Ratio 0.09 mg/mg (0-0.20)
[2023-08-03 09:49] LABS: Alanine Aminotransferase 33 U/L (6-50); Albumin Level 4.3 g/dL (3.5-5.1); Alkaline Phosphatase 81 U/L (38-126); Anion Gap 7 mmol/L (8-16); Aspartate Amino Transferase 28 U/L (17-59); Bilirubin,Total 0.5 mg/dL (0.2-1.3); Blood Urea Nitrogen 45 mg/dL (9-20); CRP 0.9 mg/dL (<1.0); Calcium 9.4 mg/dL (8.4-10.2); Carbon Dioxide 26 mmol/L (22-30); Chloride 104 mmol/L (98-107); Estimated Glomerular Filt Rate 31; Glucose 87 mg/dL (65-110); Potassium 4.1 mmol/L (3.4-5.0); Sodium 137 mmol/L (137-145)
[2023-08-11 22:42] LABS: Calprotectin, Stool 22 mcg/g
== END 2023-08-03 08:09 | disposition home or self-care (01) ==
PROVIDERS: PCP Family Medicine Adolescent Medicine
DX: K51.00 Ulcerative (chronic) pancolitis without complications (principal); R80.9 Proteinuria, unspecified; N18.32 Chronic kidney disease, stage 3b; Z79.899 Other long term (current) drug therapy
CPT/HCPCS: 36415; 80053; 81003; 82570; 83993; 84100; 84156; 85025; 86140

== ENCOUNTER 2023-08-03 13:16 | Outpatient (CLI) | payer OTHER, SELFPAY ==
--- NOTE | 2023-08-03 17:11 | WPDPFTINT ---
PFT Procedure Performed PFT Procedure Performed Spirometry with Pre/Post Bronchodilator Plethysmography (Lung Vol) Diffusing Cap (DLCO) Flow Vol Loop PFT Interpretation This is a pulmonary function test with pre and post-bronchodilator spirometry, plethysmography and diffusing capacity. The test was performed and results interpreted in accordance with the 2019 and 2005 ATS/ERS Task Force guidelines respectively using the Global Lung Function Initiative-2012 reference equations. Patient demonstrated good effort and cooperation. Reproducibility criteria were met. The quality of the pre bronchodilator spirometry maneuver was Grade A and post bronchodilator spirometry maneuver was Grade B. Findings: Spirometry: The contour the inspiratory and expiratory flow tracing are normal. The pre bronchodilator FVC is 4.18 L, 76% predicted. The pre bronchodilator FEV1 is 2.97 L, 70% predicted. The pre bronchodilator FEV1: FVC ratio 71%. The post bronchodilator FVC is 4.73 L, representing a 13% increase. The post bronchodilator FEV1 is 3.36 L, representing a 13% increase. The post bronchodilator FEV1: FVC ratio 71%. Plethysmography: The total lung capacity is 6.52 L, 84% predicted. The functional residual capacity is 2.37 L, 58% predicted. The residual volume is 2.16 L, 92% predicted. Diffusing capacity: The diffusing capacity unadjusted for hemoglobin and carboxyhemoglobin is 27.9, 89% predicted. The diffusing capacity adjusted for alveolar volume is 4.83, 116% predicted. Impression: The spirometry is normal without evidence of an obstructive abnormality. The lung volumes are without evidence of and restrictive abnormality. The FVC and FEV1 are mildly decreased without an obstructive or restrictive abnormality. This is an abnormal but nonspecific finding. There is significant improvement after inhaling a single dose of albuterol. The total lung capacity and residual volume are normal with a decreased functional residual capacity. This is an abnormal but nonspecific lung volume pattern. The diffusing capacity is normal. There are no prior studies for comparison
== END 2023-08-03 13:17 | disposition home or self-care (01) ==
LOC: ANHPFT 13:17
PROVIDERS: PCP Family Medicine Adolescent Medicine; Visit Provider Nurse Practitioner Family
DX: R94.2 Abnormal results of pulmonary function studies (principal)
CPT/HCPCS: 36415; 80053; 81003; 82570; 83993; 84100; 84156; 85025; 86140; 94060; 94726; 94729

== ENCOUNTER 2023-08-16 15:17 | Outpatient (CLI) | payer OTHER, SELFPAY ==
--- NOTE | ~2023-08-16 | XR_ITS ---
XR chest 2V 08/16/2023 15:29 Indication: Cough. Asbestos exposure. Procedure: PA and lateral views of the chest Comparison: 11/01/2014 Findings: There is chronic left basilar atelectasis/scarring. Heart size normal. No focal air space d isease, pulmonary edema, pleural effusion or suspected pneumothorax. Impression: 1: No acute cardiopulmonary disease. Reviewed, dictated and finalized at location B. Impression: 1: No acute cardiopulmonary disease.
== END 2023-08-16 15:18 | disposition home or self-care (01) ==
PROVIDERS: PCP Family Medicine Adolescent Medicine; Visit Provider Nurse Practitioner Family
DX: R06.00 Dyspnea, unspecified (principal); Z77.090 Contact with and (suspected) exposure to asbestos
CPT/HCPCS: 71046

== ENCOUNTER 2023-10-06 08:24 | Outpatient (RCR) | payer OTHER, SELFPAY ==
[2023-08-21 09:50] LABS: Basophils Percent Auto 0.4 % (0.2-1.2); Eosinophils Absolute Auto 0.1 K/mm3 (0-0.3); Hematocrit 44.6 % (42.0-52.0); Hemoglobin 14.1 g/dL (14.0-18.0); Immature Granulocyte Absolute 0.02 K/mm3 (0.00-0.031); Immature Granulocyte Percent A 0.4 % (0-0.5); Lymphocytes Absolute Auto 1.36 K/mm3 (0.9-3.2); Lymphocytes Percent Auto 26.8 % (18.3-44.2); Mean Corpuscular HGB Conc 31.6 g/dl (32-36); Mean Corpuscular Hemoglobin 27.2 pg (26-34); Mean Corpuscular Volume 85.9 fl (80-100); Mean Platelet Volume 11.1 fl (7.4-10.4); Monocytes Absolute Auto 0.7 K/mm3 (0.1-0.6); Neutrophils Absolute Auto 2.9 K/mm3 (1.3-6.7); Neutrophils Percent Auto 56.4 % (45.5-73.1); Platelet Count Result 173 k/mm3 (150-375); Red Blood Count 5.19 M/mm3 (4.6-6.20); Red Cell Distribution Width 14.8 % (11.5-14.5); White Blood Count 5.1 K/mm3 (4.5-10.0)
[2023-08-21 10:00] LABS: Alanine Aminotransferase 27 U/L (6-50); Albumin Level 4.2 g/dL (3.5-5.1); Alkaline Phosphatase 69 U/L (38-126); Anion Gap 7 mmol/L (8-16); Aspartate Amino Transferase 28 U/L (17-59); Bilirubin,Total 0.8 mg/dL (0.2-1.3); Blood Urea Nitrogen 33 mg/dL (9-20); Carbon Dioxide 28 mmol/L (22-30); Chloride 102 mmol/L (98-107); Estimated Glomerular Filt Rate 31; Glucose 86 mg/dL (65-110); Potassium 3.8 mmol/L (3.4-5.0); Sodium 137 mmol/L (137-145)
[2023-08-23 17:10] LABS: GGT 59 U/L (3-85)
[2023-08-23 18:40] LABS: Everolimus <1.0 ng/mL (***); Tacrolimus Prograf 5.4 mcg/L
[2023-10-06 09:08] LABS: Alanine Aminotransferase 78 U/L (6-50); Albumin Level 4.5 g/dL (3.5-5.1); Alkaline Phosphatase 82 U/L (38-126); Anion Gap 5 mmol/L (8-16); Aspartate Amino Transferase 84 U/L (17-59); Bilirubin,Total 0.5 mg/dL (0.2-1.3); Blood Urea Nitrogen 36 mg/dL (9-20); Calcium 9.2 mg/dL (8.4-10.2); Carbon Dioxide 28 mmol/L (22-30); Chloride 107 mmol/L (98-107); Estimated Glomerular Filt Rate 33; Glucose 86 mg/dL (65-110); Potassium 4.7 mmol/L (3.4-5.0); Sodium 140 mmol/L (137-145)
[2023-10-06 09:31] LABS: Basophils Percent Auto 0.6 % (0.2-1.2); Eosinophils Absolute Auto 0.1 K/mm3 (0-0.3); Eosinophils Percent Auto 2.3 % (0-4.4); Hematocrit 43.7 % (42.0-52.0); Hemoglobin 14.1 g/dL (14.0-18.0); Immature Granulocyte Absolute 0.01 K/mm3 (0.00-0.031); Immature Granulocyte Percent A 0.2 % (0-0.5); Lymphocytes Absolute Auto 1.39 K/mm3 (0.9-3.2); Lymphocytes Percent Auto 26.7 % (18.3-44.2); Mean Corpuscular HGB Conc 32.3 g/dl (32-36); Mean Corpuscular Hemoglobin 27.1 pg (26-34); Mean Platelet Volume 11.1 fl (7.4-10.4); Monocytes Absolute Auto 0.6 K/mm3 (0.1-0.6); Monocytes Percent Auto 12.3 % (2.6-8.5); Neutrophils Percent Auto 57.9 % (45.5-73.1); Platelet Count Result 214 k/mm3 (150-375); Red Cell Distribution Width 14.8 % (11.5-14.5); White Blood Count 5.2 K/mm3 (4.5-10.0)
[2023-10-09 08:43] LABS: Everolimus 3.8 ng/mL (***)
[2023-10-09 15:07] LABS: GGT 60 U/L (3-85)
== END 2023-11-19 23:59 | disposition home or self-care (01) ==
LOC: ANHLAB 08:24
PROVIDERS: PCP Family Medicine Adolescent Medicine; Visit Provider Internal Medicine Gastroenterology
DX: Z94.4 Liver transplant status (principal)
CPT/HCPCS: 36415; 80053; 80169; 80197; 82977; 85025

== ENCOUNTER 2023-10-06 08:25 | Outpatient (CLI) | payer OTHER, SELFPAY ==
[2023-10-10 12:36] LABS: Testosterone Total 282 ng/dL (250-1100)
== END 2023-10-06 08:26 | disposition home or self-care (01) ==
LOC: ANHLAB 08:27
PROVIDERS: PCP Family Medicine Adolescent Medicine; Visit Provider Nurse Practitioner Family
DX: E29.1 Testicular hypofunction (principal)
CPT/HCPCS: 36415; 80053; 80169; 80197; 82977; 84403; 85025

== ENCOUNTER 2024-04-15 08:04 | Outpatient (RCR) | payer OTHER, SELFPAY ==
[2024-01-16 08:43] LABS: Basophils Percent Auto 0.3 % (0.2-1.2); Eosinophils Absolute Auto 0.1 K/mm3 (0-0.3); Eosinophils Percent Auto 2.1 % (0-4.4); Hematocrit 37.2 % (42.0-52.0); Hemoglobin 11.7 g/dL (14.0-18.0); Immature Granulocyte Absolute 0.02 K/mm3 (0.00-0.031); Immature Granulocyte Percent A 0.3 % (0-0.5); Lymphocytes Percent Auto 21.4 % (18.3-44.2); Mean Corpuscular HGB Conc 31.5 g/dl (32-36); Mean Corpuscular Hemoglobin 26.4 pg (26-34); Monocytes Absolute Auto 0.7 K/mm3 (0.1-0.6); Monocytes Percent Auto 11.3 % (2.6-8.5); Neutrophils Absolute Auto 3.9 K/mm3 (1.3-6.7); Neutrophils Percent Auto 64.6 % (45.5-73.1); Platelet Count Result 175 k/mm3 (150-375); Red Blood Count 4.43 M/mm3 (4.6-6.20); Red Cell Distribution Width 15.7 % (11.5-14.5); White Blood Count 6.1 K/mm3 (4.5-10.0)
[2024-01-16 08:50] LABS: Alanine Aminotransferase 24 U/L (6-50); Albumin Level 3.9 g/dL (3.5-5.1); Alkaline Phosphatase 80 U/L (38-126); Anion Gap 7 mmol/L (8-16); Aspartate Amino Transferase 24 U/L (17-59); Bilirubin,Total 0.3 mg/dL (0.2-1.3); Blood Urea Nitrogen 45 mg/dL (9-20); Calcium 9.1 mg/dL (8.4-10.2); Carbon Dioxide 23 mmol/L (22-30); Chloride 109 mmol/L (98-107); Estimated Glomerular Filt Rate 20; Glucose 95 mg/dL (65-110); Potassium 4.3 mmol/L (3.4-5.0); Sodium 139 mmol/L (137-145)
[2024-01-18 15:31] LABS: Everolimus <1.0 ng/mL (***); Tacrolimus Prograf 6.2 mcg/L
[2024-01-19 14:43] LABS: GGT 61 U/L (3-85)
[2024-01-23 10:05] LABS: Basophils Percent Auto 0.3 % (0.2-1.2); Eosinophils Absolute Auto 0.1 K/mm3 (0-0.3); Eosinophils Percent Auto 1.8 % (0-4.4); Hematocrit 39.3 % (42.0-52.0); Hemoglobin 12.6 g/dL (14.0-18.0); Immature Granulocyte Absolute 0.02 K/mm3 (0.00-0.031); Immature Granulocyte Percent A 0.3 % (0-0.5); Lymphocytes Absolute Auto 1.67 K/mm3 (0.9-3.2); Mean Corpuscular HGB Conc 32.1 g/dl (32-36); Mean Corpuscular Hemoglobin 26.6 pg (26-34); Mean Corpuscular Volume 82.9 fl (80-100); Mean Platelet Volume 11.4 fl (7.4-10.4); Monocytes Absolute Auto 0.7 K/mm3 (0.1-0.6); Monocytes Percent Auto 12.2 % (2.6-8.5); Neutrophils Absolute Auto 3.4 K/mm3 (1.3-6.7); Neutrophils Percent Auto 57.4 % (45.5-73.1); Platelet Count Result 168 k/mm3 (150-375); Red Blood Count 4.74 M/mm3 (4.6-6.20); Red Cell Distribution Width 15.9 % (11.5-14.5)
[2024-01-23 10:35] LABS: Alanine Aminotransferase 21 U/L (6-50); Albumin Level 4.4 g/dL (3.5-5.1); Alkaline Phosphatase 73 U/L (38-126); Anion Gap 5 mmol/L (4-12); Aspartate Amino Transferase 23 U/L (17-59); Bilirubin,Total 0.6 mg/dL (0.2-1.3); Blood Urea Nitrogen 49 mg/dL (9-20); Calcium 9.8 mg/dL (8.4-10.2); Carbon Dioxide 25 mmol/L (22-30); Chloride 108 mmol/L (98-107); Estimated Glomerular Filt Rate 25; Glucose 92 mg/dL (65-110); Potassium 4.2 mmol/L (3.4-5.0); Sodium 138 mmol/L (137-145)
[2024-01-26 05:44] LABS: GGT 64 U/L (3-85)
[2024-01-26 10:39] LABS: Everolimus 3.7 ng/mL (***)
[2024-03-15 08:03] LABS: Basophils Percent Auto 0.4 % (0.2-1.2); Eosinophils Absolute Auto 0.1 K/mm3 (0-0.3); Eosinophils Percent Auto 1.3 % (0-4.4); Hematocrit 40.4 % (42.0-52.0); Hemoglobin 12.5 g/dL (14.0-18.0); Immature Granulocyte Absolute 0.04 K/mm3 (0.00-0.031); Immature Granulocyte Percent A 0.8 % (0-0.5); Lymphocytes Absolute Auto 1.48 K/mm3 (0.9-3.2); Lymphocytes Percent Auto 28.5 % (18.3-44.2); Mean Corpuscular HGB Conc 30.9 g/dl (32-36); Mean Corpuscular Hemoglobin 26.5 pg (26-34); Mean Corpuscular Volume 85.8 fl (80-100); Mean Platelet Volume 10.8 fl (7.4-10.4); Monocytes Absolute Auto 0.5 K/mm3 (0.1-0.6); Monocytes Percent Auto 10.4 % (2.6-8.5); Neutrophils Percent Auto 58.6 % (45.5-73.1); Platelet Count Result 187 k/mm3 (150-375); Red Blood Count 4.71 M/mm3 (4.6-6.20); Red Cell Distribution Width 15.1 % (11.5-14.5); White Blood Count 5.2 K/mm3 (4.5-10.0)
[2024-03-15 08:05] LABS: Alanine Aminotransferase 28 U/L (6-50); Albumin Level 4.5 g/dL (3.5-5.1); Alkaline Phosphatase 72 U/L (38-126); Anion Gap 10 mmol/L (4-12); Aspartate Amino Transferase 26 U/L (17-59); Bilirubin,Total 0.6 mg/dL (0.2-1.3); Blood Urea Nitrogen 53 mg/dL (9-20); Calcium 8.5 mg/dL (8.4-10.2); Carbon Dioxide 21 mmol/L (22-30); Chloride 109 mmol/L (98-107); Estimated Glomerular Filt Rate 24; Glucose 88 mg/dL (65-110); Potassium 4.3 mmol/L (3.4-5.0); Sodium 140 mmol/L (137-145)
[2024-03-19 11:46] LABS: GGT 67
[2024-03-20 08:09] LABS: Everolimus 6.3
[2024-04-15 08:35] LABS: Basophils Percent Auto 0.6 % (0.2-1.2); Eosinophils Absolute Auto 0.1 K/mm3 (0-0.3); Eosinophils Percent Auto 1.9 % (0-4.4); Hematocrit 39.4 % (42.0-52.0); Hemoglobin 12.4 g/dL (14.0-18.0); Immature Granulocyte Absolute 0.02 K/mm3 (0.00-0.031); Immature Granulocyte Percent A 0.4 % (0-0.5); Lymphocytes Absolute Auto 1.75 K/mm3 (0.9-3.2); Lymphocytes Percent Auto 34.1 % (18.3-44.2); Mean Corpuscular HGB Conc 31.5 g/dl (32-36); Mean Corpuscular Hemoglobin 26.7 pg (26-34); Mean Corpuscular Volume 84.7 fl (80-100); Monocytes Absolute Auto 0.7 K/mm3 (0.1-0.6); Monocytes Percent Auto 13.6 % (2.6-8.5); Neutrophils Absolute Auto 2.5 K/mm3 (1.3-6.7); Neutrophils Percent Auto 49.4 % (45.5-73.1); Platelet Count Result 223 k/mm3 (150-375); Red Blood Count 4.65 M/mm3 (4.6-6.20); Red Cell Distribution Width 14.4 % (11.5-14.5); White Blood Count 5.1 K/mm3 (4.5-10.0)
[2024-04-15 08:46] LABS: Alanine Aminotransferase 23 U/L (6-50); Albumin Level 4.2 g/dL (3.5-5.1); Alkaline Phosphatase 83 U/L (38-126); Anion Gap 7 mmol/L (4-12); Aspartate Amino Transferase 27 U/L (17-59); Bilirubin,Total 0.4 mg/dL (0.2-1.3); Blood Urea Nitrogen 43 mg/dL (9-20); Calcium 8.7 mg/dL (8.4-10.2); Carbon Dioxide 25 mmol/L (22-30); Chloride 106 mmol/L (98-107); Estimated Glomerular Filt Rate 22; Glucose 94 mg/dL (65-110); Sodium 138 mmol/L (137-145)
[2024-04-18 10:17] LABS: Tacrolimus Prograf 5.3 mcg/L
[2024-04-18 15:29] LABS: Everolimus 6.7 ng/mL
== END 2024-04-15 23:59 | disposition home or self-care (01) ==
LOC: ANHLAB 08:04
PROVIDERS: PCP Family Medicine Adolescent Medicine; Visit Provider Internal Medicine Gastroenterology
DX: Z94.4 Liver transplant status (principal)
CPT/HCPCS: 36415; 80053; 80169; 80197; 82977; 85025

== ENCOUNTER 2024-05-06 07:52 | Outpatient (CLI) | payer OTHER, SELFPAY ==
[2024-05-06 08:46] LABS: Basophils Percent Auto 0.4 % (0.2-1.2); Eosinophils Absolute Auto 0.1 K/mm3 (0-0.3); Eosinophils Percent Auto 1.6 % (0-4.4); Hematocrit 40.1 % (42.0-52.0); Hemoglobin 12.6 g/dL (14.0-18.0); Immature Granulocyte Absolute 0.02 K/mm3 (0.00-0.031); Immature Granulocyte Percent A 0.4 % (0-0.5); Lymphocytes Absolute Auto 0.96 K/mm3 (0.9-3.2); Lymphocytes Percent Auto 17.5 % (18.3-44.2); Mean Corpuscular HGB Conc 31.4 g/dl (32-36); Mean Corpuscular Hemoglobin 26.7 pg (26-34); Mean Platelet Volume 10.5 fl (7.4-10.4); Monocytes Absolute Auto 0.7 K/mm3 (0.1-0.6); Monocytes Percent Auto 13.5 % (2.6-8.5); Neutrophils Absolute Auto 3.7 K/mm3 (1.3-6.7); Neutrophils Percent Auto 66.6 % (45.5-73.1); Platelet Count Result 196 k/mm3 (150-375); Red Blood Count 4.72 M/mm3 (4.6-6.20); Red Cell Distribution Width 14.4 % (11.5-14.5); White Blood Count 5.5 K/mm3 (4.5-10.0)
[2024-05-06 08:57] LABS: Alanine Aminotransferase 25 U/L (6-50); Albumin Level 4.5 g/dL (3.5-5.1); Alkaline Phosphatase 89 U/L (38-126); Anion Gap 10 mmol/L (4-12); Aspartate Amino Transferase 26 U/L (17-59); Bilirubin,Total 0.5 mg/dL (0.2-1.3); Blood Urea Nitrogen 36 mg/dL (9-20); Calcium 8.7 mg/dL (8.4-10.2); Carbon Dioxide 28 mmol/L (22-30); Chloride 102 mmol/L (98-107); Cholesterol 237 mg/dL (0-200); Estimated Glomerular Filt Rate 28; Glucose 86 mg/dL (65-110); HDL Direct 45 mg/dL; Phosphorus 3.1 mg/dL (2.5-4.5); Potassium 4.2 mmol/L (3.4-5.0); Sodium 140 mmol/L (137-145); Triglycerides 216 mg/dL (<150)
[2024-05-06 09:08] LABS: LDL Cholesterol Direct 146 mg/dL
[2024-05-06 10:07] LABS: Parathyroid Intact 136.1 pg/mL (7.5-53.5)
[2024-05-06 10:22] LABS: Hepatitis B Surface Antigen Negative (Negative)
[2024-05-06 10:39] LABS: Hepatitis B Surface Anti Res Negative
[2024-05-06 13:10] LABS: Vitamin D 25 Hydroxy 44.8 ng/mL
[2024-05-07 07:08] LABS: Hepatitis B Core Ab Total NON-REACTIVE (NON-REACTIVE)
[2024-05-08 10:09] LABS: Tacrolimus Prograf 2.9 mcg/L
[2024-05-08 14:44] LABS: Quantiferon TB Plus, 1T NEGATIVE (NEGATIVE); TB2-NIL <0.00 IU/mL
[2024-05-17 07:24] LABS: Everolimus 4.1
== END 2024-05-06 07:53 | disposition home or self-care (01) ==
PROVIDERS: PCP Family Medicine Adolescent Medicine; Visit Provider Internal Medicine Gastroenterology
DX: K51.00 Ulcerative (chronic) pancolitis without complications (principal); Z94.4 Liver transplant status; R80.9 Proteinuria, unspecified; N18.30 Chronic kidney disease, stage 3 unspecified
CPT/HCPCS: 36415; 80053; 80061; 80069; 80169; 80197; 81003; 82306; 82570; 83970; 84156; 85025; 86480; 86704; 86706; 87340

== ENCOUNTER 2024-08-07 08:28 | Outpatient (RCR) | payer OTHER, SELFPAY ==
[2024-07-10 09:18] LABS: Basophils Percent Auto 0.7 % (0.2-1.2); Eosinophils Absolute Auto 0.2 K/mm3 (0-0.3); Eosinophils Percent Auto 3.1 % (0-4.4); Hematocrit 44.6 % (42.0-52.0); Immature Granulocyte Absolute 0.02 K/mm3 (0.00-0.031); Immature Granulocyte Percent A 0.4 % (0-0.5); Lymphocytes Absolute Auto 1.65 K/mm3 (0.9-3.2); Lymphocytes Percent Auto 29.7 % (18.3-44.2); Mean Corpuscular HGB Conc 31.4 g/dl (32-36); Mean Corpuscular Hemoglobin 26.5 pg (26-34); Mean Corpuscular Volume 84.5 fl (80-100); Monocytes Absolute Auto 0.7 K/mm3 (0.1-0.6); Monocytes Percent Auto 11.7 % (2.6-8.5); Neutrophils Percent Auto 54.4 % (45.5-73.1); Platelet Count Result 202 k/mm3 (150-375); Red Blood Count 5.28 M/mm3 (4.6-6.20); Red Cell Distribution Width 15.4 % (11.5-14.5); White Blood Count 5.6 K/mm3 (4.5-10.0)
[2024-07-10 09:28] LABS: Alanine Aminotransferase 27 U/L (6-50); Albumin Level 4.5 g/dL (3.5-5.1); Alkaline Phosphatase 78 U/L (38-126); Anion Gap 10 mmol/L (4-12); Aspartate Amino Transferase 27 U/L (17-59); Bilirubin,Total 0.4 mg/dL (0.2-1.3); Blood Urea Nitrogen 46 mg/dL (9-20); Calcium 9.2 mg/dL (8.4-10.2); Carbon Dioxide 26 mmol/L (22-30); Chloride 102 mmol/L (98-107); Estimated Glomerular Filt Rate 31; Glucose 91 mg/dL (65-110); Potassium 4.1 mmol/L (3.4-5.0); Sodium 138 mmol/L (137-145)
[2024-07-10 19:29] LABS: GGT 71 U/L (3-85)
[2024-07-11 15:14] LABS: Tacrolimus Prograf 2.7 mcg/L
[2024-07-18 01:03] LABS: Everolimus 2.4 ng/mL
[2024-08-07 09:29] LABS: Basophils Percent Auto 0.7 % (0.2-1.2); Eosinophils Absolute Auto 0.1 K/mm3 (0-0.3); Eosinophils Percent Auto 2.3 % (0-4.4); Hematocrit 42.2 % (42.0-52.0); Hemoglobin 13.4 g/dL (14.0-18.0); Immature Granulocyte Absolute 0.02 K/mm3 (0.00-0.031); Immature Granulocyte Percent A 0.3 % (0-0.5); Lymphocytes Absolute Auto 1.61 K/mm3 (0.9-3.2); Mean Corpuscular HGB Conc 31.8 g/dl (32-36); Mean Corpuscular Hemoglobin 26.6 pg (26-34); Mean Corpuscular Volume 83.9 fl (80-100); Mean Platelet Volume 10.8 fl (7.4-10.4); Monocytes Absolute Auto 0.7 K/mm3 (0.1-0.6); Monocytes Percent Auto 11.2 % (2.6-8.5); Neutrophils Absolute Auto 3.5 K/mm3 (1.3-6.7); Neutrophils Percent Auto 58.5 % (45.5-73.1); Platelet Count Result 182 k/mm3 (150-375); Red Blood Count 5.03 M/mm3 (4.6-6.20); Red Cell Distribution Width 15.1 % (11.5-14.5)
[2024-08-07 09:45] LABS: Alanine Aminotransferase 24 U/L (6-50); Albumin Level 4.4 g/dL (3.5-5.1); Alkaline Phosphatase 79 U/L (38-126); Anion Gap 10 mmol/L (4-12); Aspartate Amino Transferase 32 U/L (17-59); Bilirubin,Total 0.6 mg/dL (0.2-1.3); Blood Urea Nitrogen 37 mg/dL (9-20); Carbon Dioxide 24 mmol/L (22-30); Chloride 103 mmol/L (98-107); Estimated Glomerular Filt Rate 31; Glucose 83 mg/dL (65-110); Potassium 3.9 mmol/L (3.4-5.0); Sodium 137 mmol/L (137-145)
[2024-08-08 05:14] LABS: GGT 55 U/L (3-85)
[2024-08-08 15:12] LABS: Tacrolimus Prograf 2.8 mcg/L
== END 2024-10-08 23:59 | disposition home or self-care (01) ==
LOC: ANHLAB 08:28
PROVIDERS: PCP Family Medicine Adolescent Medicine; Visit Provider Internal Medicine Gastroenterology
DX: Z51.81 Encounter for therapeutic drug level monitoring (principal); Z94.4 Liver transplant status; Z79.899 Other long term (current) drug therapy
CPT/HCPCS: 36415; 80053; 80169; 80197; 81003; 82570; 82977; 84156; 85025; 87086

== ENCOUNTER 2024-08-07 08:32 | Outpatient (CLI) | payer OTHER, SELFPAY ==
[2024-08-07 09:38] LABS: Albumin Level 4.3 g/dL (3.5-5.1); Anion Gap 12 mmol/L (4-12); Blood Urea Nitrogen 35 mg/dL (9-20); Carbon Dioxide 23 mmol/L (22-30); Chloride 103 mmol/L (98-107); Cholesterol 155 mg/dL (0-200); Estimated Glomerular Filt Rate 31; Glucose 85 mg/dL (65-110); HDL Direct 44 mg/dL; Phosphorus 2.9 mg/dL (2.5-4.5); Potassium 3.8 mmol/L (3.4-5.0); Sodium 138 mmol/L (137-145); Triglycerides 102 mg/dL (<150)
[2024-08-07 09:49] LABS: LDL Cholesterol Direct 75 mg/dL
[2024-08-07 10:16] LABS: Vitamin D 25 Hydroxy 50.1 ng/mL
[2024-08-07 10:33] LABS: Microalbumin Urine Random 9.1 mg/L (0-16.7)
[2024-08-07 10:47] LABS: Creatinine Urine 167.1 mg/dL; MALB Creatinine Ratio 5.4 mg/g (0-30)
[2024-08-07 11:01] LABS: Creatinine Urine 168.9 mg/dL; Total Protein Urine Random 8 mg/dL; Ur Ttl Prot Creatinine Ratio 0.05 mg/mg (0-0.20)
== END 2024-08-07 08:33 | disposition home or self-care (01) ==
PROVIDERS: PCP Family Medicine Adolescent Medicine
DX: R80.9 Proteinuria, unspecified (principal); N25.0 Renal osteodystrophy; E78.5 Hyperlipidemia, unspecified; I12.9 Hypertensive chronic kidney disease with stage 1 through stage 4 chronic kidney disease, or unspecified chronic kidney disease; N18.32 Chronic kidney disease, stage 3b
CPT/HCPCS: 36415; 80061; 80069; 82043; 82306; 82570; 83970; 84156

== ENCOUNTER 2024-12-06 08:27 | Outpatient (RCR) | payer OTHER, SELFPAY ==
[2024-12-06 08:56] LABS: Basophils Percent Auto 0.4 % (0.2-1.2); Eosinophils Absolute Auto 0.1 K/mm3 (0-0.3); Hematocrit 44.7 % (42.0-52.0); Hemoglobin 14.3 g/dL (14.0-18.0); Immature Granulocyte Absolute 0.01 K/mm3 (0.00-0.031); Immature Granulocyte Percent A 0.1 % (0-0.5); Lymphocytes Absolute Auto 1.85 K/mm3 (0.9-3.2); Lymphocytes Percent Auto 26.4 % (18.3-44.2); Mean Corpuscular Hemoglobin 27.8 pg (26-34); Mean Corpuscular Volume 86.8 fl (80-100); Mean Platelet Volume 10.2 fl (7.4-10.4); Monocytes Absolute Auto 0.9 K/mm3 (0.1-0.6); Monocytes Percent Auto 13.1 % (2.6-8.5); Neutrophils Absolute Auto 4.1 K/mm3 (1.3-6.7); Platelet Count Result 224 k/mm3 (150-375); Red Blood Count 5.15 M/mm3 (4.6-6.20); Red Cell Distribution Width 15.7 % (11.5-14.5)
[2024-12-06 09:10] LABS: Alanine Aminotransferase 44 U/L (6-50); Albumin Level 4.4 g/dL (3.5-5.1); Alkaline Phosphatase 114 U/L (38-126); Anion Gap 10 mmol/L (4-12); Aspartate Amino Transferase 36 U/L (17-59); Bilirubin,Total 0.5 mg/dL (0.2-1.3); Blood Urea Nitrogen 33 mg/dL (9-20); Calcium 8.6 mg/dL (8.4-10.2); Carbon Dioxide 25 mmol/L (22-30); Chloride 106 mmol/L (98-107); Estimated Glomerular Filt Rate 41; Glucose 84 mg/dL (65-110); Potassium 4.2 mmol/L (3.4-5.0); Sodium 141 mmol/L (137-145)
[2024-12-07 04:19] LABS: GGT 89 U/L (3-85)
[2024-12-09 15:29] LABS: Tacrolimus Prograf 3.8 mcg/L
[2024-12-10 23:48] LABS: Everolimus 4.5 ng/mL
== END 2025-03-06 23:59 | disposition home or self-care (01) ==
LOC: ANHLAB 08:27
PROVIDERS: PCP Family Medicine Adolescent Medicine; Visit Provider Internal Medicine Gastroenterology
DX: Z94.4 Liver transplant status (principal)
CPT/HCPCS: 36415; 80053; 80169; 80197; 82977; 85025

== ENCOUNTER 2025-03-13 08:24 | Outpatient (CLI) | payer OTHER, SELFPAY ==
--- OUTSIDE RECORDS SUMMARY | 2025-03-13 08:27 | XMS_ITS ---
Author Organization [facility] Address [address] [place] [address] Care Team Providers Care Programmer Business Name Role Phone Kyle Kapoor MD Primary Care Prov ider Rabia Smith Unavailable Hayde Ortega RN Unavailable Unavailable Transplant Episode Liver Recipient [facility] ([place], [place]) - [facility] Organ Received: Liver Transplanted on 08/23/2016 Marked as Active Follow-up on 08/23/2016 Liver CoordinatorHayde Ortega RN Phone: N/A Fax: N/A Email: N/A [place] Organ Diagnosis Organ Primary 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 Retransplant Diagnosis Organ Primary 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 Donor Information Organ ABO Source Meets Risk Criteria HLA Match Mismatches Cross Match Liver Transplanted O DBD Yes A: B: DR: Liver Donor Serology Results Anti-CMV CMV IgG: Negative EBV IgG EBV VCA IgG: Positive Anti-HBcAb HBC Total: Negative HBsAg HBsAg: Negative HBV DNA No results on file Anti-HCV HCV: Negative Anti-HIV I/II No results on file Anti-HTLV I/II HTLV: Not Done RPR/VDRL RPR: Negative EBV IgM EBV VCA IgM: Negative HBsAb No results on file EBNA No results on file Toxoplasma No results on file SARS CoV-2 No results on file Care Team Name Role Phone Fax Email Hayde Ortega RN Liver Coordinator N/A N/A N/A Oksana Sharma RN Senior Report Developer N/A N/A N/A Sis Tan RN Secondary Coordinator Secondary Liver Coordinator [phone] N/A N/A Events Post-Transplant Pre-Transplant Admitted: 07/22/2016 Referred: 08/02/2016 Transplanted: 08/23/2016 Evaluation began: 6 Discharged: 08/31/2016 Center waitlisted: 6 Appointments (02/11/2025 - 04/13/2025) When With Visit Type Description 02/26/2025 Transplant - [facility] Histo ry of liver transplant (HCC) (Primary Dx); Personal history of immunosuppressive therapy
--- OUTSIDE RECORDS SUMMARY | 2025-03-13 08:27 | XMS_ITS | Encounter Summary ---
Author Organization [facility] Healthcare Address [address] [place] [address] Care Team Providers Care Oil Analyst Name Role Phone Kyle Kapoor MD Primary Care Prov ider Rabia Smith Unavailable Hayde Ortega RN Unavailable Unavailable Encounter Details Date Type Department Care Team (Late st Contact Info) Description 02/17/2025 Results Follow-Up [facility] Transplant Liver [address] [facility] [id number] [place] [address] Hayde Ortega, JARROD MRI Abdomen MRCP W WO Contrast Incl 3D Social History Tobacco Use Types Packs/Day Years Used Date Smoking Tobacco: Never Smokeless Tobacco: Never Alcohol Use Standard Drinks/Week Comments Yes 0 (1 standard drink = 0.6 oz pur e alcohol) socially OASIS D0700: Social Isolation Answer Da te Recorded Frequency of experiencing loneliness or isolatio n Never 11/05/2024 AUDIT-C Answer Date Recorded Q1: How often do you have a drink containing alc ohol? 2-4 times a month 10/04/2024 Q2: How many drinks containi ng alcohol do you have on a typical day when you are drinking? 3 or 4 10/04/2024 Q3: How often do you have si x or more drinks on one occasion? Never 10/04/2024 Personal Safety Answer Date Recorded Have you ever been in or are you currently in a harmful physical or emotional relationship or is someone making you feel afraid or unsafe? 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 difficile suspected 02/25/2025 02/25/202502/26 3:06 AM CDT documented as of this encounter Care Teams Oil Analyst Relationship Specialty Start Date End Date Kyle Kapoor MD [address] [place] [address] PCP - General 05/03/17 Rabia Smith Transplant 06/26/20 Hayde Ortega RN Vehicle Return Associate Transplant 03/08/23 documented as of this encounter
--- OUTSIDE RECORDS SUMMARY | 2025-03-13 08:27 | XMS_ITS | Clinical Summary ---
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 Gender Identity Not on file Sexual Orientation Not on file Plan of Treatment Health Maintenance Due Date Last Done Comments Hepatitis C Virus (HCV) Screening 1968 TdaP Immunization 1968 Hepatitis B Immunization (1 of 3 - 19+ 3-dose series) 1987 Colonoscopy 2013 Colorectal Cancer Screening 2013 Cologuard 2018 Immunochemical Fecal Occult Blood 2018 Pneumococcal Immunization (5 0+ years) (1 of 1 - PCV) 2018 Zoster Immunization (1 of 2) 2018 Influenza Immunization (#1) 06/23/202406/23, 08/31/2013 SARS-COV-2 Immunization ( season) 2024 Respiratory Syncytial Virus (RSV) Immunization (Adult) (1 - 1-dose 75+ series) 2043 Meningococcal Immunization (ACWY) Aged Out No longer eligible b ased on patient's age to complete this topic Rotavirus Immunization Aged Out No lo nger eligible based on patient's age to complete this topic
--- OUTSIDE RECORDS SUMMARY | 2025-03-13 08:27 | XMS_ITS | Encounter Summary ---
Author Organization [facility] Healthcare Address [address] [place] [address] Care Team Providers Care Director Of Donor Relations Name Role Phone Kyle Kapoor MD Primary Care Prov ider Rabia Smith Unavailable Hayde Ortega RN Unavailable Unavailable Encounter Details Date Type Department Care Team (Latest Contact Info) Description 01/27/2025 Results Follow-Up [facility] Transplant Liver [address] [facility] [id number] [place] [address] Hayde Ortega RN Comprehensive metabolic panel, CBC with auto differential, Gamma GT, Additional followed-up results: 4 Social History Tobacco Use Types Packs/Day Years [...] on file 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 difficile suspected 02/25/2025 02/25/202502/26 3:06 AM CDT documented as of this encounter Care Teams Director Of Donor Relations Relationship Specialty Start Date End Date Kyle Kapoor MD [address] [place] [address] PCP - General 05/03/17 Rabia Smith Transplant 06/26/20 Hayde Ortega RN Shipper And Receiving Transplant 03/08/23 documented as of this encounter
--- OUTSIDE RECORDS SUMMARY | 2025-03-13 08:27 | XMS_ITS | Continuity of Care Document ---
Author Name [facility] Organization [facility] Care Team Providers Care Tank Insulator Rubber Name Role Phone [facility] Unavailable Unavailable Problems Combined list of problems from [facility] and [facility] facilities. It does not include entries that were removed or entered in error. Problem Status Onset Date Problem Type Date of Resolution Comments Source Chronic Kidney Disease Stage 3B ([facility] [id number]) Active Condition [facility] Exposure to potentially hazardous substance Active Condition [facility] HTN - Hypertension ([facility] [id number]) Active Condition [facility] Liver transplant recipient Active Condition [facility] Sclerosing cholangitis Active Condition [facility] Ulcerative Colitis ([facility] [id number]) Active Condition [facility] Diagnosis: ICD-10-CM L57.0 Actinic keratosis Active Diagnosis [facility] Diagnosis: ICD-10-CM K51.90 Ulcerative colitis, unspecified, without complications Active Diagnosis [facility] Medications Combined list of outpatient medications from [facility] and [facility] facilities.Medications provided include 1) outpatient medications from the last 15 months, and 2) patient-reported medications. Medication Details Route Status Patient Instructions Prescription Expires Prescription Number Last Dispense Date Ordering Provider Order Date Order Qty Source CHLORTHALID ONE 25MG TAB TAKE ONE TABLET BY MOUTH ONCE A DAY ORAL ACTIVE RAMNOT,AM JANY 2023 [facility] EVEROLIMUS 0.5MG TAB TAKE FOUR TABLETS BY MOUTH TWICE A DAY ORAL ACTIVE SCOTTY GIBBS 2022 [facility] LOSARTAN POTASSIUM 100MG TAB TAKE ONE TABLET BY MOUTH ONCE A DAY ORAL ACTIVE RAMNOT,AM JANY 2023 [facility] MESALAMINE 1200MG TAB,EC TAKE FOUR TABLETS BY MOUTH ONCE A DAY ORAL ACTIVE SCOTTY GIBBS 2022 [facility] OMEPRAZOLE 20MG CAP,EC TAKE 1 CAPSULE BY MOUTH EVERY MORNING BEFORE A MEAL ORAL ACTIVE SCOTTY GIBBS 2022 [facility] TACROLIMUS (PROGRAF) 5MG CAP TAKE 1 CAPSULE BY MOUTH TWICE A DAY ORAL ACTIVE SCOTTY GIBBS 2022 [facility] Allergies, Adverse Reactions, Alerts Combined list of allergies from [facility] and [facility] facilities. It does not include entries that were removed or entered in error. Substance Category Reaction Severity Reaction type Status Date Reported Comments Source LISINOPRIL Propensity to adverse reactions to drug (finding) Angioedema SEVERE active [facility] Immunizations Combined list of available immunizations from the [facility] and [facility] facilities. Immunization Series Date Given Administered By Site Reaction Lot Number CVX Code Drug Biology Research Assistant Status Comments Source COVID-19 ([employer]), MRNA, LNP-S, PF, 30 MCG/0.3 ML DOSE 1 2021 208 complet ed HISTORICA L INFORMATI ON - FROM OTHER PROVIDER, [facility] COVID-19 ([employer]), MRNA, LNP-S, PF, 30 MCG/0.3 ML DOSE, REMI-SUCROSE (AGES 12+ YEARS) 1 2021 217 complet ed HISTORICA L INFORMATI ON - FROM OTHER REGISTRY, [facility] N PNEUMOCOCCAL CONJUGATE PCV 13 1 2017 133 complet ed HISTORICA L INFORMATI ON - [facility] Vital Signs Combined list of inpatient and outpatient Vital Signs from [facility] and [facility], ranging from 12 months to all on record, depending upon the facility. Vital Sign Value Date Comments Source SYSTOLIC BLOOD PRESSURE 128 03/28/2024 13:28:00 [facility] DIASTOLIC BLOOD PRESSURE 86 03/28/2024 13:28:00 [facility] PULSE OXIMETRY 97 03/28/2024 13:28:00 [facility] WEIGHT 262.1 03/28/2024 13:28:00 [facility] BMI 34 kg/m2 03/28/2024 13:28:00 [facility] PAIN 0 03/28/2024 13:28:00 [facility] HEIGHT 74 03/28/2024 13:28:00 [facility] TEMPERATURE 98.1 03/28/2024 13:28:00 [facility] PULSE 86 03/28/2024 13:28:00 [facility] RESPIRATION 16 03/28/2024 13:28:00 [facility] Encounters Combined list of: 1) Encounters from [facility] Affairs facilities going backup to the last 18 months, not all [place] inpatient encounters are included; 2) Encounters from the Department of [facility] facilities going backup to 280 months. Location Location Details Encounter Type Encounter Number Reason For Visit Attending Provider ADM Date DC Date Status Disposition Source [facility] Outpatient Encounter [id number] 11/15 [facility] OFFICE O/P EST MOD 30 MIN [id number] Diagnos is: ICD-10- CM K51.90 Ulcerat nikhil colitis , unspeci fied, without complic ations EMILY GUADARRAMA A 03/28 [facility] OFFICE O/P NEW LOW 30 MIN [id number] Diagnos is: ICD-10- CM L57.0 Actinic keratos is YING JEROME 04/15 [facility] Outpatient Encounter [id number] 05/08 [facility] Outpatient Encounter [id number] 01/13 [facility] [place] [facility] Outpatient Encounter [id number] RADHA CERNA 01/13 [facility] Social History Combined list of available smoking, tobacco, and other social history from Department of Defense and Veterans Affairs facilities. Social History Type Response Date Comment Sour e Tobacco smoking status NHIS VA-TOBACCO NEVER USED 03/28/2024 [facility] History of tobacco use VA-TOBACCO NEVER USED 2023 [facility] Plan of Care List of future care activities from Department of [facility] Affairs facilities. Additional future care activities may be listed in the Assessment and Plan section. Date/Time Care Activity Care Activity Detail Facili ty 03/27/2025 AMBULATORY - MEDICINE AMBULATORY - MEDICI NE [facility]
--- OUTSIDE RECORDS SUMMARY | 2025-03-13 08:27 | XMS_ITS | Referral Summary ---
Author Organization [facility] Address [address] [place] [address] Care Team Providers Care Computer Video Game Designer Name Role Phone Kyle Kapoor MD Primary Care Prov ider Rabia Smith Unavailable Hayde Ortega RN Unavailable Unavailable Encounters Date Type Department Care Team Description 03/07/2025 1:00 PM CDT Home Care Visit [address] [address] [address] [place] [address] Erik Dillard RN SN INFUSION TREATMENT ROOM 02/26/2025 10:00 AM CDT Office Visit [facility] Gasteroenterology [address] [facility] [address] 12th [place] [address] [place] [address] Yi Lora NP History of liver transplant (HCC) (Primary Dx); Personal history of immunosuppressive therapy 02/25/2025 Documentation [facility] Gastroenterology [address] [facility] [address] [place] [address] Tiarra Hdz RN Symptoms and recommendations 02/23/2025 Documentation Gastroententerolo gy Trisha Rosales M.A. 02/18/2025 Telephone [facility] and [facility] Transplant Liver [address] [facility] [address] Mailstop [id number] [place] [address] Hayde Ortega RN 02/17/2025 Results Follow-Up [facility] and [facility] Transplant Liver [address] [facility] [address] Mailstop -[phone] [place] [address] Hayde Ortega RN MRI Abdomen MRCP W WO Contrast Incl 3D 02/14/2025 3:38 PM CDT - 02/14/2025 11:59 PM CDT Hospital Encounter [facility] [address] [place] [id number] Chey Lemus MD History of liver transplant (HCC); Elevated serum GGT level; PSC (primary sclerosing cholangitis) (HCC) Discharge Disposition: Discharge to home or self care 02/14/2025 3:00 PM CDT Office Visit [facility] Nephrology [address] [place] [address] Medicine 5th [place] [address] [place] [address] Arik Upton MD Stage 3b chronic kidney disease (HCC) (Primary Dx); Primary hypertension; Persistent proteinuria; Renal osteodystrophy 02/06/2025 Documentation [facility] Gastroenterology [address] [place] [address] Medical Office [address] [place] [phone] Tiarra Hdz RN Post clinic review and recommendations 02/04/2025 10:30 AM CDT Office Visit [facility] Gastroenterology [address] [place] [address] Medical Office Building [address] [place] [address] Belinda Bowser NP Ulcerative chronic pancolitis without complications (HCC) (Primary Dx); History of liver transplant (HCC); Gastroesophageal reflux disease without esophagitis; Obesity with body mass index 30 or greater; Stage 3b chronic kidney disease (HCC); Personal history of immunosuppressive therapy 01/27/2025 Telephone [facility] Transplant Liver [address] [facility] [address] Mailstop [phone] [place] [address] Hayde Ortega RN 01/27/2025 Results Follow-Up [facility] Transplant Liver [address] [facility] [address] Mailstop -[phone] [place] [address] Hayde Ortega RN Comprehensive metabolic panel, CBC with auto differential, Gamma GT, Additional followed-up results: 4 01/24/2025 9:30 AM CDT - 01/24/2025 11:59 PM CDT Hospital Encounter [facility] [address] [place] [address] Discharge Disposition: Discharge to home or self care 01/24/2025 10:00 AM CDT Home Care Visit [facility] [address] [address] [address] [place] [address] Dunia Christina RN INFUSION TREATMENT ROOM 01/16/2025 Orders Only [facility] [address] [place] [address] [address] [place] [address] Tate Dueñas, [facility] 01/16/2025 Orders Only [facility] [address] [place] [address] [place] [phone] Ulisses Larson, [facility] 12/24/2024 Telephone [facility] Gastroenterology [address] [facility] [address] 12th [place] [address] [place] [phone] Paris Lee LPN Med Management (Entyvio Q6wks); Approved 12/24/2024 Documentation [facility] Gastroenterology [address] [facility] [address] 12th [place] [address] [place] [phone] Tiarar Hdz RN Entyvio dosage frequency q6w 12/23/2024 Results Follow-Up [facility] Gastroenterology [address] [facility] Medical Office Building [address] [place] [address] Belinda Bowser NP Comprehensive metabolic panel, without glucose (Outreach), Glucose, random (Outreach), CBC with auto differential, Additional followed-up results: 5 from Last 3 Months Allergies Active Allergy Reactions Criticality Noted Date Comments Lisinopril Angioedema High 03/18/2022 Medications testosterone cypionate (DEPO-TESTOTERO NE) 200 mg/mL injectionIndica tions:Androgen Deficiency 05/02/20 22 Active omeprazole (PriLOSEC) 20 mg capsuleIndicati ons:Treatment of Non-Bleeding Gastric Disorder Take 1 capsule by mouth 30 minutes before breakfast and 30 minutes before dinner 60 capsule 2 02/21/20 23 Active tacrolimus 1 mg immediate-relea se capsuleIndicati ons:Prevention of Liver Transplant Rejection Take 3 capsules (3 mg total) by mouth 2 (two) times a day 180 capsule 11 04/19/20 24 025 Active vedolizumab (ENTYVIO) 300 mg recon solnIndications :Ulcerative Colitis,Frequen cy change from Q8wks to Q6wks as of 12/24/24. Infuse 5 mL (300 mg total) IV every 6 (six) weeks Site of Care: [facility] ([facility] order in [facility] under 'Procedures' tab). Active psyllium seed, with sugar, (FIBER ORAL)Indication s:Other Take 1 tablet/capsul e by mouth daily. Indications: OTHER Active 0.9 % sodium chloride ([facility] sodium chloride 0.9%) injectionIndica tions:Maintain Patency of Indwelling Vascular Catheter Infuse 10 mL IV as needed for line care Active atorvastatin (LIPITOR) 20 mg tabletIndicatio ns:hyperlipidem ia Take 1 tablet (20 mg total) by mouth nightly at bedtime 07/17/20 24 Active everolimus (ZORTRESS) 1 mg tabletIndicatio ns:Prevention of Liver Transplant Rejection Take 2 tablets (2 mg total) by mouth every morning AND 1 tablet (1 mg total) nightly. Swallow whole with a glass of water. Do not take any tablet that is broken or crushed.. 270 tablet 1 10/21/20 24 Active diphenhydrAMINE (BENADRYL) 25 mg capsuleIndicati ons:infusion pre-medication Take 1 tablet/capsul e (25 mg total) by mouth every 6 (six) weeks Take by mouth 30 minutes prior to infusion. 01/17/20 25 026 Active acetaminophen (TYLENOL) 325 mg tabletIndicatio ns:Other,(infus ion pre-medication) Take 2 tablets (650 mg total) by mouth every 6 (six) weeks Take by mouth 30 minutes prior to infusion. 01/17/20 25 026 Active traZODone (DESYREL) 50 mg tablet TAKE 1 TABLET BY MOUTH EVERY DAY AT BEDTIME NEEDED FOR INSOMNIA 01/23/20 25 Active losartan (COZAAR) 100 mg tabletIndicatio ns:hypertension Take 0.5 tablets (50 mg total) by mouth daily 90 tablet 1 02/15/20 25 Active ursodioL (MELISSA FORTE) 500 mg tablet Take 1 tablet (500 mg total) by mouth 2 (two) times a day 60 tablet 11 02/19/20 25 026 Active Zepbound 7.5 mg/0.5 mL pen injector ADMINISTER 7.5 MG UNDER THE SKIN WEEKLY 02/11/20 25 Active chlorthalidone (Thalitone) 15 mg tabletIndicatio ns:Stage 3b chronic kidney disease (HCC),Primary hypertension TAKE 1 TABLET(15 MG) BY MOUTH DAILY 90 tablet 2 03/04/20 25 Active ergocalciferol, vitamin D2, 50 mcg (2,000 unit) tabletIndicatio ns:Vitamin D Deficiency Take 2,000 Units by mouth daily 30 tablet 2 05/10/20 24 025 Discontinued(T herapy completed) Zepbound 2.5 mg/0.5 mL pen injectorIndicat ions:Weight Loss Management for Obese Patient (BMI >= 30) 1 mL (5 mg total) 07/18/20 24 025 Discontinued(D uplicate order) mesalamine (LIALDA) 1.2 gram EC tabletIndicatio ns:Ulcerative Colitis TAKE 3 TABLETS DAILY 270 tablet 1 10/21/20 24 025 Discontinued(A lternate therapy) chlorthalidone (THALITONE) 15 mg tabletIndicatio ns:hypertension Take 1 tablet (15 mg total) by mouth daily 90 tablet 1 11/19/19 25 025 Discontinued losartan (COZAAR) 100 mg tabletIndicatio ns:hypertension TAKE 1 TABLET(100 MG) BY MOUTH DAILY 90 tablet 1 01/25/20 25 025 Discontinued Active Problems Patient Care Coordination No te Formatting of this note migh t be different from the original. Lab:[facility] Labs good for 1 year Last labs sent: 11/11/2024 EF Problem Noted Date Diagnosed Date Dyslipidemia 11/09/2023 Personal history of immunosuppressive therapy Assessment & Plan (02/05/2025 12:38 PM CDT): The patient will continue close lab monitoring. He is advised to stay up-to-date with his vaccinations and skin checks Proteinuria 11/08/2023 Renal osteodystrophy 11/08/2023 GERD (gastroesophageal reflux disease) Overview (02/21/2023): Experiencing worsening GERD symptoms despite prn famotidine. Assessment & Plan (02/05/2025 12:37 PM CDT): GERD symptoms are not bad currently particularly if he does not overeat Assessment & Plan (08/12/2024 4:04 PM CDT): The patient is encouraged to eat smaller meals and avoid eating late given Zepbound use Assessment & Plan (02/21/2023 12:03 PM CDT): -Start omeprazole 30 minutes before meals -He is also working on weight loss Tinnitus 09/27/2022 Eczema 09/27/2022 Hypertension 05/26/2022 Ulcerative chronic pancolitis without complicati ons 04/09/2018 Overview (02/05/2025): Year of diagnosis: 2002. Year symptoms began: 2001 (diarrhea). Distribution: Extensive (E3). 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 Complications: Mild mesalamine intolerance manifest as urgency and loose stools Prior treatments: Lialda, prednisone Current treatment: Entyvio every 6 weeks (initiated 05/14/2024 escalated to every 6 weeks based on low drug level and anticipatory symptoms) TDM: Vedolizumab 13.2 on every 8 weeks 11/2024 Prior surgeries: None. Endoscopies: Colonoscopy 09/2024 normal ileum and colon. Colonoscopy 03/2024 The perianal and digital rectal examinations were normal.The terminal ileum appeared normal. Multiple ulcers were found in the transverse colon. Biopsies were taken with a cold forceps for histology. Normal mucosa was found from descending colon to rectum and from cecum to ascending colon. Biopsies were taken with a cold forceps for histology. A few small-mouthed diverticula were found in the sigmoid colon. The exam was otherwise without abnormality on direct and retroflexion views. Path: Cecum-ascending colon cold biopsy: Chronic inactive coltitis, Transverse colon cold biopsy: Chronic active coltitis with focal ulceration/erosion CMV immunostain is negative for viral inclusions. Descending colon - rectum cold biopsy: Normal colonic mucosa Colonoscopy 12/2022 which was only able to reach the ascending colon but noted normal mucosa (Alcantara score of 0) and diverticulosis. Pathology showed (cecum transverse): inactive chronic colitis and (descending rectum) focal mildly active chronic colitis. Colonoscopy 11/19/2021:The perianal and digital rectal examinations were normal. Inflammation was found as large patches surrounded by normal mucosa in the recto-sigmoid colon, in the descending colon and in the ascending colon. This was graded as Alcantara Score 1 (mild, with erythema, decreased vascular pattern, mild friability), and when compared to the previous examination, the findings are quiescent. Colonoscopy 08/26/2020 with Alcantara 1 patchy inflammation considered worsened since last procedure. Biopsies of the left colon showed inactive colitis and no histopathological abnormalities in the transverse and right colon Colonoscopy 05/15/18 showed normal mucosa from descending to rectum (colonic mucosa with no histopathologic abnormality) and from cecum to transverse colon (colonic mucosa with chronic active colitis). One 4 mm polyp in the transverse colon, removed with a cold biopsy forceps (tubular adenoma). Imaging: None. Assessment & Plan (02/05/2025 12:36 PM CDT): The patient appears to be in clinical and mucosal remission on Entyvio. He had had some anticipatory symptoms and low drug levels on every 8 weeks and is now having no anticipation at all. We would like to continue Entyvio at every 6 weeks for the foreseeable future. We will continue annual colonoscopy screening so we will repeat his procedure again in September We will continue to monitor his CBC, CRP, CMP with infusions. Assessment & Plan (08/12/2024 4:03 PM CDT): Happily the patient has reported a substantial improvement in his GI symptoms since starting Entyvio and this predated starting Zepbound. He currently feels that he is experiencing anticipatory symptoms in week 6. We would like to check his Entyvio trough level prior to his next infusion. Unclear if [facility] has the ability to perform this test so he was given an order for [facility]. A paper copy was provided as well. If his level is low or borderline, we will consider shortening the interval based on anticipatory symptoms We would like him to stay on his mesalamine for now. If he is in deep remission on his colonoscopy, we can consider tapering him off mesalamine. We will continue to monitor his labs his infusions. Assessment & Plan (04/23/2024 5:08 PM CDT): The patient was worsening disease activity on recent colonoscopy. Given the importance of maintaining deep remission to limit his risk of colon cancer, we would recommend moving forward with Entyvio. We will see if he is eligible for having this closer to his home. If he has a robust response, potentially we could discontinue mesalamine in the future. We would typically repeat a colonoscopy after at least 6 months to verify that he is responding to this medicine Assessment & Plan (02/21/2023 12:04 PM CDT): He continues to have symptoms which wax and wane although overall he feels better than he did at his appointment last year. For now we will further evaluate with a fecal calprotectin. If it is elevated, we will give him a course of uceris. If he still does not improve, can consider starting a biologic (have discussed Entyvio in the past). Assessment & Plan (03/18/2022 5:44 PM CDT): The patient has a baseline of stool irregularity and loose stools while on Lialda 4.8 g daily. His colonoscopy was suggestive of some patchy inflammation though the biopsies were largely quiescent. He a noticeable improvement on prednisone which suggests that potentially there is some low level inflammation that may be present and contributing to his symptoms. We would like to recheck calprotectin and if normal consider dropping his Lialda again to 3.6 g daily and again rechecking his calprotectin to determine if there is any change. If his calprotectin is elevated on 4.8 g daily, it may be reasonable to advanced to Entyvio based on steroid responsive improvement of symptoms. Even if his calprotectin is normal this may still be reasonable. Assessment & Plan (09/27/2021 11:33 AM FLOOR LAYER): : mixed bm. likley mild activity. rec back to 4.8 lialda. Colon in Oct 2021. Offered antidepressant for ongoing stress related to work. Feels unneccessary for now. Try to imit dairy. See kiln placer. Increase fiber. Assessment & Plan (04/10/2021 11:14 AM CDT): The patient appears to have some mild mesalamine intolerance and has improved symptoms on a lower dose. His calprotectin remained reassuring on this dose. If this is mesalamine specific, balsalazide sometimes does not have the same side effect. We will offer him a month trial to see if this is better tolerated but still does not lead to any flares. If he does better on balsalazide, we will switch him over entirely. He will need a surveillance colonoscopy for his PSC/longstanding UC this August Plan 1. Trial of balsalazide 4 capsules twice daily for 1 month to see if superior to mesalamine 2. If patient has flare symptoms or does not tolerate balsalazide, switch back to Lialda 2.84 g daily 3. Repeat surveillance colonoscopy in August 2021 Assessment & Plan (12/18/2020 7:29 PM FLOOR LAYER): The patient reports substantial improvement in his stool frequency and borborygmi since starting Uceris. It is hard to know how to interpret this as his colonoscopy biopsies were consistent with inactive disease and his calprotectin was completely normal. While he had a mild increase in symptoms prior to starting the Uceris, he states that his issues with diarrhea have been longstanding with an interruption associated with previous prednisone use immediately after his liver transplant. There could be several explanations for his chronic diarrhea which we will list below. 1. Mild persistent disease activity. The patient may benefit from advancing to Entyvio and would need a repeat colonoscopy to evaluate improvement as a cannot easily be tracked by calprotectin 2. Mesalamine side effects. Even though the mesalamine may be managing his colitis, he may have chronic diarrhea as a side effect. Patient could try discontinuing Uceris and should his symptoms return try dropping his mesalamine to a maintenance 2.4 g daily. If this makes a substantial change but he still has loose stools, it may be reasonable to advance to Entyvio with plan to discontinue Lialda 3. Bile salt diarrhea. The patient reported worsening symptoms on a keto diet and given his cholecystectomy with his liver transplant, may have some component of bile salt diarrhea that could be managed with Colestid 4. Small intestinal bacterial overgrowth/dysbiosis. 5. Irritable bowel syndrome. It is probably the easiest to see if his symptoms return after discontinuing Uceris and reducing his mesalamine to 2 tablets daily to see if this impacts his symptoms at all. We do believe Entyvio would be a a safe medication. Assessment & Plan (09/07/2020 6:03 PM FLOOR LAYER): Increased sympotoms and endo to alcantara 1, mild to moderate activity. chekcing stools and starting uceris. mikala need biologic at some time. I would like the Uceris to be taken for about 2 months and then have a little time off of and then be re-evaluated by our ENGINE HOSTLER. If needed we can consider other therapies. I also think that the extra bowel sounds he is hearing is probably related to disease activity. 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 However, it is impossible for me to say whether this was causative in his case, but clearly can not be ruled out. The diagnosis of ulcerative colitis is a combination of factors including genetics, environmental insults and chronic actively immune system. Assessment & Plan (08/06/2018 5:29 PM CDT): The patient has moderate disease activity with liquid bowel movements up to 6 bowel movements sometimes, despite being on tacrolimus, everolimus, and Lialda. This is compared to 1-2 formed bowel movements daily when he was on larger doses of immunosuppressive therapy in there period after transplant. He also had evidence of histologic activities in the right colon on colonoscopy 04/2018. Considering that he is at high risk for colon cancer, as he has PSC and prior tubular adenoma, he will need to be in remission to minimize the risk of colon cancer the most. He had a recent CBC and CMP that were within normal limits. - We will check a lipid panel, CRP, TB quantiferon test, and a lipid panel. - We discussed our concerns regarding the disease activity with the patient. We disucssed our options including benefit and harms of different treatments including Azathioprine, Xeljanz, and anti-TNFa. We will plan to start Xeljanz one the labs are back. - We will Prevnar/PCV-13 and influenza vaccine today. - Patient will need to get Zostavax and Pneumovax/PCV-23 (after 4-8 weeks). Stage 3b chronic kidney disease 05/03/2017 Assessment & Plan (02/05/2025 12:37 PM CDT): The patient will continue to follow closely with embedded nurse. He is encouraged to drink plenty of water Assessment & Plan (08/28/2024 12:04 PM FLOOR LAYER): He will continue to f/u with nephrology for CKD, continue with antihypertensive agents. His BP has improved with weight loss Assessment & Plan (08/12/2024 4:05 PM CDT): He will continue to follow closely with Nephrology. Entyvio should not impact his kidney function. He is encouraged to stay well hydrated Assessment & Plan (08/18/2021 5:26 PM CDT): Multifactorial and stable; in part secondary to long-term use of a calcineurin inhibitor. History of liver transplant 05/03/2017 Assessment & Plan (02/26/2025 11:01 AM CDT): History of liver transplant- Patient is 8 years, 6 months s/p liver transplant for PSC. He has done He should get yearly lipid profile and urine prot/creat ratio as he is on mTOR inhibitor. Follow up with GI for management of UC. He has mildly elevated GGT and otherwise normal liver tests. I will make no changes to patient's immunosuppression. 2. Recurrent PSC- MRI/MRCP in January 2025 shows early, recurrent PSC. Ursodiol 500 mg po daily was started. If tolerating, can increase dose to 1500 mg/day. Lab work in 4-6 weeks. MRIMRCP in 6 months. Alternate US and MRCP every 6 months. We have discussed recurrent PSC, nature of the disease, risk of progression. Follow up scheduled 08/2025. Assessment & Plan (02/05/2025 12:37 PM CDT): The patient will continue to follow closely with hepatology to monitor liver transplant. Assessment & Plan (08/28/2024 12:06 PM FLOOR LAYER): Patient is s/p liver transplant with [facility] 8 years ago for PSC. He has done well post-transplant. I did not make any changes to his immunosuppression. He will continue with labs every 2-3 months. He should get yearly lipid profile and urine prot/creat ratio as he is on mTOR inhibitor. Continue zepbound for weight loss. He has been successful in losing almost 30 lbs over the last year. His fevers have resolved since switching to entyvio. Continue to f/u with GI for management of UC. If his fevers recur, he is to inform transplant for additional workup. He will return to clinic in 2 years or sooner if needed. Assessment & Plan (08/12/2024 4:03 PM CDT): The patient will continue to follow closely with the transplant team Assessment & Plan (04/23/2024 5:09 PM CDT): The patient will continue to follow closely with the transplant team. Entyvio should be safe to use with his transplant medications and should not impact his kidney function. Assessment & Plan (08/18/2021 5:26 PM CDT): He has excellent allograft function. I saw no reason to change his current dose of immunosuppression. He will continue to have labs checked on a regular basis. He will return in 2 years or when clinically indicated. Obesity with body mass index 30 or greater 05/03 Assessment & Plan (02/05/2025 12:38 PM CDT): The patient reports substantial improvement in his overall well-being since starting Zepbound. We do not object to his continuing this. Assessment & Plan (08/28/2024 12:07 PM FLOOR LAYER): Continue with zepbound. Has lost ~30 lbs over the last year. Continue to do physical exercise and eat healthy diet. Deviated septum 09/25/2014 Resolved Problems Problem Noted Date Diagnosed Date Resolved Date MARCO (acute kidney injury) 05/26/2022 Chronic fatigue 03/18/2022 08/23/2023 Assessment & Plan (03/18/2022 5:47 PM CDT): Likely multifactorial. He has had a some mild anemia for quite some time and in 2019 his iron was checked and found to be appropriate. If he does not have any improvement on oral iron, it may be reasonable to recheck his B12. If this too was normal the anemia may be related to his transplant meds Incisional hernia without ob struction or gangrene 10/24/2019 12/06/2019 Overview (10/24/2019): Added automatically from request for surgery [id number] High risk medications (not a nticoagulants) long-term use 08/06/2018 08/23/2023 Assessment & Plan (03/18/2022 5:45 PM CDT): If the patient has not received Shingrix, we would recommend that you do so. He is also eligible for a booster of Pneumovax with his next visit. High risk for colon cancer 08/06/2018 1 10/23/2022 Overview (02/21/2023): Patient has had ulcerative colitis with primary sclerosing cholangitis since 2001. He also had a tubular adenoma during colonoscopy on 05/15/18. He had an incompletely colonoscopy in December 2022 (unable to reach cecum despite multiple maneuvers). Of note, he had a complete colonoscopy in 2019 and 2021 but had hernia surgery in the interim which could be a contributing factor. Assessment & Plan (02/21/2023 12:00 PM CDT): Given incomplete colon in December 2022, plan for repeat colonoscopy in 2023. Assessment & Plan (03/18/2022 5:45 PM CDT): The patient will need a repeat surveillance colonoscopy in October 2022 Assessment & Plan (12/18/2020 7:30 PM FLOOR LAYER): Patient will need a repeat colonoscopy in August regardless of whether he advances to [facility]. Assessment & Plan (09/07/2020 5:54 PM FLOOR LAYER): Yearly colonoscopy Assessment & Plan (08/06/2018 11:01 AM CDT): - Surveillance colonoscopy will be arranged in yearly. - Needs split prep and chromoendoscopy. Hernia of anterior abdominal wall 09/06/2017 08/18/2021 Anemia 04/04/2016 08/18/2021 At risk of disease 12/28/2015 3 Right upper quadrant abdominal pain 01/26/2015 08/06/2018 Immunizations Immunization Administration Dates Next Due Influenza, Quadrivalent, Heather l Culture-based MDCK, Antibiotic Free, Intramuscular 08/06/2018 Influenza, Quadrivalent, Spl it, Preservative Free, Intramuscular 07/04/2019 Influenza, Trivalent, IM (MDV) 08/31/2013 Influenza, Unspecified 07/24/2016 Pfizer SARS-CoV-2 Monovalent Vaccination (12+ Yrs) SMITH-READY TO USE 11/19/2021 Pfizer SARS-CoV-2 Monovalent Vaccination (12+ Yrs) PURPLE 11/19/2021 Pneumococcal Conjugate PCV 13 08/06/2018 Pneumococcal Polysaccharide PPV23 12/28/2015 Social History Tobacco Use Types Packs/Day Years Used Date Smoking Tobacco: Never Smokeless Tobacco: Never Tobacco Cessation:Counseling Given: Not Answered Alcohol Use Standard Drinks/Week Comments Yes 0 [...] on file Legal Sex Male 6:19 PM FLOOR LAYER Gender Identity Male 04/08/2021 8:30 PM CDT Sexual Orientation Not on file Last Filed Vital Signs Vital Sign Reading Time Taken Comments Blood Pressure 118/68 03/07/2025 2:05 PM CDT Pulse 76 03/07/2025 2:05 PM CDT Temperature 36.4 C (97.6 F) 03/07/2025 2:05 PM CDT Respiratory Rate 16 03/07/2025 2:05 PM CDT Oxygen Saturation 96% 03/07/2025 2:05 PM CDT Inhaled Oxygen Concentration - - Weight 106.6 kg (235 lb) 03/07/2025 1:10 PM CDT Height 188 cm (6' 2 ) 02/26/2025 10:10 AM CDT Body Mass Index 30.17 02/26/2025 10:10 AM CDT Plan of Treatment Not on file Medical Devices Implanted Type Area Joint Runner Device Identifier Shelf Expiration Date Model / Serial / Lot [employer]/C R Bard [id number] Monofilament Soft Lightweight Low Profile Square - [id number] Implanted:Qty: 1 on 11/20/2019 by Sarina Adame MD at [facility] Mesh N/A: Abdomen [employer] Bard [id number] 07/20/2024 [id number] / / [id number] Procedures Procedure Name Priority Date/Time Associated Diagnosis Comments MRI ABDOMEN MRCP W WO CONTRAST Schedule Routine, Read Routine (OP Routine) 02/14/2025 4:59 PM CDT History of liver transplant (HCC) Elevated serum GGT level PSC (primary sclerosing cholangitis) (HCC) EGFR Routine 01/24/2025 9:30 AM CDT DIFFERENTIAL AUTO Routine 01/24/2025 9:3 0 AM CDT TACROLIMUS LEVEL, TROUGH Routine 01/24/2025 9:30 AM CDT EVEROLIMUS LEVEL TROUGH Routine 01/24/2025 9:30 AM CDT GAMMA GT Routine 01/24/2025 9:30 AM CDT CBC WITH AUTO DIFFERENTIAL Routine 01/24/2025 9:30 AM CDT COMPREHENSIVE METABOLIC PANEL Routine 01/24/2025 9:30 AM CDT COLONOSCOPY 10/08/2024 11:17 AM FLOOR LAYER SERUM HEPATITIS C AB Routine 08/16/2016 6:29 AM CDT from Last 3 Months or Most Recently Relevant to Health Maintenance Results * MRI Abdomen MRCP W WO Contrast Incl 3D (02/14/2025 4:59 PM CDT) Anatomical Region Laterality Modality Body N/A Magnetic Resonan ce 02/15/2025 8:19 AM CDT Impressions 02/15/2025 11:18 AM CDT Changes orthotopic liver transplantation with new mild stricturing and dilation of intrahepatic ducts involving segments 2 and 8 compatible with recurrent sclerosing cholangitis. There is mild enhancement surrounding the segment 8 ducts suggestive of mild active cholangitis. Dictated by: Neal Jacobson MD The radiology attending physician has personally reviewed this study, and had reviewed and/or edited this written report and agrees with it. Electronically signed by: Moy Dejesus M.D. Narrative 02/15/2025 11:18 AM CDT EXAMINATION: 1. MAGNETIC RESONANCE IMAGING OF THE ABDOMEN WITH AND WITHOUT CONTRAST 2. THREE DIMENSIONAL RECONSTRUCTION OF THE BILIARY TREE AND PANCREATIC DUCT HISTORY: Elevated GGT. History of liver transplant in August 2016 in the setting of primary sclerosing cholangitis TECHNIQUE: Magnetic resonance imaging of the abdomen was performed prior to and following the uneventful administration of intravenous Gadolinium contrast. The raw data was processed on the scanner by the technologist for 3 dimensional reconstructions of the intrahepatic ducts, extrahepatics ducts, and pancreatic duct. Protocol: Liver MRCP Contrast: gadoterate 20 mL COMPARISON: CT 08/27/2019 FINDINGS: Liver: Changes of orthotopic liver transplantation. No significant fat or iron deposition. - Bile ducts: There is new beading, mild stricturing, and dilation of the intrahepatic ducts in segment 2 and segment 8 with associated patchy arterial enhancement surrounding the segment 8 ducts (series 8 image 51). No extra hepatic biliary ductal dilation. - Focal liver lesions: None - Vasculature: Patent portal and hepatic veins. Multiple collateral vessels in the left upper quadrant. Gallbladder: Surgically absent. Pancreas: Normal Spleen: Normal Adrenals: Normal Kidneys: Tiny right renal cyst. No suspicious renal lesion. No hydronephrosis. Other Findings: Imaged bowel is normal in caliber. No suspicious osseous lesion. No abdominal lymphadenopathy. Procedure Note Moy Dejesus MD PhD - 02/15/2025 EXAMINATION: 1. MAGNETIC RESONANCE IMAGING OF THE ABDOMEN WITH AND WITHOUT CONTRAST 2. THREE DIMENSIONAL RECONSTRUCTION OF THE BILIARY TREE AND PANCREATIC DUCT HISTORY: Elevated GGT. History of liver transplant in August 2016 in the setting of primary sclerosing cholangitis TECHNIQUE: Magnetic resonance imaging of the abdomen was performed prior to and following the uneventful administration of intravenous Gadolinium contrast. The raw data was processed on the scanner by the technologist for 3 dimensional reconstructions of the intrahepatic ducts, extrahepatics ducts, and pancreatic duct. Protocol: Liver MRCP Contrast: gadoterate 20 mL COMPARISON: CT 08/27/2019 FINDINGS: Liver: Changes of orthotopic liver transplantation. No significant fat or iron deposition. - Bile ducts: There is new beading, mild stricturing, and dilation of the intrahepatic ducts in segment 2 and segment 8 with associated patchy arterial enhancement surrounding the segment 8 ducts (series 8 image 51). No extra hepatic biliary ductal dilation. - Focal liver lesions: None - Vasculature: Patent portal and hepatic veins. Multiple collateral vessels in the left upper quadrant. Gallbladder: Surgically absent. Pancreas: Normal Spleen: Normal Adrenals: Normal Kidneys: Tiny right renal cyst. No suspicious renal lesion. No hydronephrosis. Other Findings: Imaged bowel is normal in caliber. No suspicious osseous lesion. No abdominal lymphadenopathy. IMPRESSION: Changes orthotopic liver transplantation with new mild stricturing and dilation of intrahepatic ducts involving segments 2 and 8 compatible with recurrent sclerosing cholangitis. There is mild enhancement surrounding the segment 8 ducts suggestive of mild active cholangitis. Dictated by: Neal Jacobson MD The radiology attending physician has personally reviewed this study, and had reviewed and/or edited this written report and agrees with it. Electronically signed by: Moy Dejesus M.D. us Chey Lemus MD IMG MRI PROCEDURES F inal Result * Everolimus level trough (01/24/2025 9:30 AM CDT) Pathologist [facility] Everolimus trough 4.2 ng/mL Comment: Interpretive Data Testing performed by liquid chromatography-tandem mass spectrometry. Therapeutic concentrations vary depending on type of transplanted organ and time elapsed since transplant. Typical trough concentrations range from 3-8 ng/mL. This test was developed and its performance characteristics determined by the [facility] consistent with CLIA requirements. This test has not been cleared or approved by the [place] Food and Drug administration. Current interpretive data last reviewed 2019. Blood 01/24/2025 9:30 AM CDT 01/24/2025 1:54 PM CDT us Vamsi Paz MD LAB BLOOD ORDERABLES Fin al Result [facility] Department [place] [address] * (ABNORMAL) eGFR (01/24/2025 9:30 AM CDT) Pathologist [facility] eGFR 37(L) >=60 mL/min/1. 73 m2 Comment: Interpretive Data Reference Interval Normal >/= 90 mL/min/1.73m2 Mildly decreased* 60 - 89 mL/min/1.73m2 Mildly to moderately decreased 45 - 59 mL/min/1.73m2 Moderately to severely decreased 30 - 44 mL/min/1.73m2 Severely decreased 15 - 29 mL/min/1.73m2 Kidney Failure < 15 mL/min/1.73m2 *Relative to young adult level Estimated glomerular filtration rate is determined by the 2020 CKD-EPI equation recommended by the National Kidney Foundation (A Unifying Approach to GFR Estimation: Recommendations of the NKF-ASK Task Force on Reassessing the Inclusion of Race in Diagnosing Kidney Disease, JASN 2020). The CKD-EPI equation should not be used for patients with unstable renal function and has not been validated in children and those over 70. Current interpretive data was last reviewed 2021. Blood 01/24/2025 9:30 AM CDT 01/24/2025 2:06 PM CDT us Vamsi Paz MD LAB BLOOD ORDERABLES Fin al Result Performing Organization Address City/State/[facility] Co de Phone Number [facility] Department [place] [address] * Differential, auto (01/24/2025 9:30 AM CDT) Pathologist [facility] Neutrophil abs 4.06 1.50 - 6.50 K/cumm Imm gran abs 0.01 0.00 - 0.10 K/cumm [facility] Lymphocyte abs 1.76 0.80 - 3.30 K/cumm [facility] Monocyte abs 0.64 0.20 - 0.80 K/cumm [facility] Eosinophil abs 0.15 0.00 - 0.50 K/cumm [facility] Basophil abs 0.05 0.00 - 0.10 K/cumm [facility] Neutrophil pct 61.0 % [facility] Comment: Interpretive Data Percent cell count reference ranges are not reported, since discordance with absolute values may lead to misinterpretation of CBC data. Current Interpretive Data was last revised on 2018. Imm gran pct 0.1 % [facility] Comment: Interpretive Data Percent cell count reference ranges are not reported, since discordance with absolute values may lead to misinterpretation of CBC data. Current Interpretive Data was last revised on 2018. Lymphocyte pct 26.4 % [facility] Comment: Interpretive Data Percent cell count reference ranges are not reported, since discordance with absolute values may lead to misinterpretation of CBC data. Current Interpretive Data was last revised on 2018. Monocyte pct 9.6 % [facility] Comment: Interpretive Data Percent cell count reference ranges are not reported, since discordance with absolute values may lead to misinterpretation of CBC data. Current Interpretive Data was last revised on 2018. Eosinophil pct 2.2 % [facility] Comment: Interpretive Data Percent cell count reference ranges are not reported, since discordance with absolute values may lead to misinterpretation of CBC data. Current Interpretive Data was last revised on 2018. Basophil pct 0.7 % [facility] Comment: Interpretive Data Percent cell count reference ranges are not reported, since discordance with absolute values may lead to misinterpretation of CBC data. Current Interpretive Data was last revised on 2018. Blood 01/24/2025 9:30 AM CDT 01/24/2025 1:53 PM CDT us Vamsi Paz MD LAB BLOOD ORDERABLES Fin al Result [facility] Department [place] [address] * Tacrolimus level trough (01/24/2025 9:30 AM CDT) Tacrolimus trough 4.9 ng/mL Comment: Interpretive Data Testing performed by liquid chromatography-tandem mass spectrometry. Therapeutic concentrations vary depending on type of transplanted organ and time elapsed since transplant. Typical trough concentrations range from 5-15 ng/mL. This test was developed and its performance characteristics determined by the [facility] consistent with CLIA requirements. This test has not been cleared or approved by the [place] Food and Drug administration. Current interpretive data last reviewed 2020. Blood 01/24/2025 9:30 AM CDT 01/24/2025 1:54 PM CDT Vamsi Paz MD LAB BLOOD ORDERABLES Fin al Result Performing Organization Address [facility] Co de Phone Number [facility] [place] [address] * (ABNORMAL) CBC with auto differential (01/24/2025 9:30 AM CDT) WBC 6.67 3.80 - 9.90 K/cumm Hgb 15.4 13.0 - 17.5 g/dL [facility] Hct 46.8 38.9 - 50.3 % [facility] Plt 219 150 - 400 K/cumm [facility] MPV 10.8 9.1 - 12.3 fL [facility] RBC 5.54 4.30 - 5.80 M/cumm [facility] MCV 84.5 81.3 - 96.4 fL [facility] MCH 27.8 27.1 - 33.3 pg [facility] MCHC 32.9 32.3 - 35.7 g/dL [facility] RDW CV 15.7(H) 11.1 - 14.9 % [facility] RDW SD 47.2 35.7 - 48.1 fL [facility] NRBC abs 0.00 0.00 - 0.01 K/cumm [facility] Blood 01/24/2025 9:30 AM CDT 01/24/2025 1:53 PM CDT Vamsi Paz MD LAB BLOOD ORDERABLES Fin al Result Performing Organization Address [facility]/ZIP Co de Phone Number [facility] Department [place] [address] * (ABNORMAL) Gamma GT (01/24/2025 9:30 AM CDT) GGT 91(H) 10 - 50 Units/L Blood 01/24/2025 9:30 AM CDT 01/24/2025 1:52 PM CDT us Vamsi Paz MD LAB BLOOD ORDERABLES Fin al Result [facility] Department [place] [address] * (ABNORMAL) Comprehensive metabolic panel (01/24/2025 9:30 AM CDT) Sodium 143 135 - 145 mmol/L Potassium, pl 4.2 3.3 - 4.9 mmol/L [facility] Chloride 102 97 - 110 mmol/L [facility] CO2 28 22 - 32 mmol/L [facility] Anion gap 13 2 - 15 mmol/L [facility] BUN 27(H) 6 - 25 mg/dL [facility] Creatinine 2.07(H) 0.80 - 1.30 mg/dL [facility] Glucose 62(L) 70 - 199 mg/dL [facility] Comment: Interpretive Data Fasting glucose >/= 126 mg/dl is diagnostic for diabetes. Fasting is defined as no caloric intake for at least 8 hours. Fasting glucose between 100 mg/dl to 125 mg/dl is diagnostic of prediabetes. In a patient with classic symptoms of hyperglycemia or hyperglycemic crisis, a random glucose >/= 200 mg/dl is diagnostic for diabetes. In the absence of unequivocal hyperglycemia, results should be confirmed by repeat testing. The classification and Diagnosis of Diabetes Diabetes Care 202; 46: S19-S40. Current interpretive data was last revised 2022. Calcium 9.6 8.5 - 10.3 mg/dL [facility] Bilirubin, total 0.5 0.1 - 1.2 mg/dL [facility] Protein, pl 8.3 6.5 - 8.5 g/dL [facility] Albumin 4.5 3.5 - 5.0 g/dL [facility] Alk phos 122 40 - 130 Units/L [facility] ALT 40 7 - 55 Units/L [facility] AST 33 10 - 50 Units/L [facility] Blood 01/24/2025 9:30 AM CDT 01/24/2025 1:52 PM CDT us Vamsi Paz MD LAB BLOOD ORDERABLES Fin al Result [facility] Department [place] [address] * Colonoscopy (10/08/2024 11:17 AM FLOOR LAYER) Anatomical Region Laterality Modality Other Narrative Procedure Note Vamsi Paz MD - 10/08/2024 11:17 AM CST ENDOSCOPY LAB Patient Name: Rickey Whitehead Procedure Date: 10/08/2024 11:17AM Date of : 1970 Admit Type: Outpatient Age: 54 Gender: Male Attending MD: Vamsi Paz M.D. Room: [facility] ENDOSCOPY ROOM 05 Note Status: Finalized Procedure: Colonoscopy Indications: Assess therapeutic response to therapy of chronic ulcerative pancolitis Providers: Vamsi Paz M.D., Serenity Kebede M.D. Referring MD: Kyle Kapoor M.D. Medicines: Monitored Anesthesia Care Complications: No immediate complications. Estimated Blood Loss: Estimated blood loss was minimal. Procedure: Pre-Anesthesia Assessment: - Immediately prior to administration ofmedications, the patient was re-assessed for adequacy to receive sedatives. The benefits, risks and alternatives of theprocedure and sedation were discussed and informed consentwas obtained. All questions were answered. Please referto the signed informed consent document in the medical record. The scope was passed under direct vision.The [id number] was introduced through the anusand advanced to the ileocecal valve. The colonoscopywas performed without difficulty. The patient tolerated the procedure well. The quality of the bowel preparation was evaluated using the BBPS (BostonBowel Preparation Scale) with scores of: Right Colon = 3, Transverse Colon = 3 and Left Colon = 3 (entiremucosa seen well with no residual staining, smallfragments of stool or opaque liquid). The total BBPS score equals 9. Bowel prep was administered using a split dose. Findings: Inflammation was not found based on the endoscopic appearance of the mucosa in the colon. This was graded as Alcantara Score 0 (normal orinactive disease), and when compared to the previous examination, the findings are improved. A single small-mouthed diverticulum was found in the sigmoid colon. Impression: - Inactive (Alcantara Score 0) ulcerative colitis, in remission, improved since the last examination. - Diverticulosis in the sigmoid colon. - No specimens collected. Biopsies taken only for SPARC study. Recommendation: - Discharge patient to home. - Continue present medications. - Await pathology results. - Return to GI office as previously scheduled. - Repeat colonoscopy in 1 year for surveillance. Electronically signed by Vamsi Paz MD Vamsi Paz M.D. 10/08/2024 12:14:16 PM Serenity Kebede M.D. Number of Addenda: 0 Note Initiated On: 10/08/2024 11:17 AM Vamsi Paz MD ENDOSCOPY PROCEDURES Fin al Result * Serum Hepatitis C ab (08/16/2016 6:29 AM CDT) HCV ab Negative NEG CDR HISTOR ICAL RESULTS Serum 08/16/2016 6:29 AM CDT Narrative CDR HISTORICAL RESULTS - 08/17/2016 4:23 AM CDT Interpretive Data Positive results should be confirmed by a molecular method. If positive, a second separately collected sample should be submitted for Hepatitis C Virus (HCV) RNA Detection and Quantitation by Real-Time Reverse Patent Agent-PCR (RT-PCR). Current interpretive data was last revised on 2016. Kendra Anaya MD LAB BLOOD ORDERABLES Final Result CDR HISTORICAL RESULTS from Last 3 Months or Most Recently Relevant to Health Maintenance Insurance [facility] CHOICE PLUS [facility] CHOICE PLUS [facility] CHOICE PLUS Advance Directives For more information, please contact: [phone] * Full Code (Latest Code Status on File) Date Activated Date Inactivated Comments 10/08/2024 10:06 AM 10/08/2024 4:28 PM * Full Code Date Activated Date Inactivated Comments 04/09/2024 10:49 AM 04/09/2024 5:24 PM * Full Code Date Activated Date Inactivated Comments 12/27/2022 8:27 AM 12/27/2022 3:34 PM * Full Code Date Activated Date Inactivated Comments 11/19/2021 9:25 AM 11/19/2021 5:11 PM * Full Code Date Activated Date Inactivated Comments 08/27/2020 12:48 PM 08/27/2020 7:55 PM Care Teams Computer Video Game 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
--- OUTSIDE RECORDS SUMMARY | 2025-03-13 08:27 | XMS_ITS ---
Author Organization [facility] Address [address] [place] [address] Care Team Providers [employer] Delivery Consultant Name Role Phone Kyle Kapoor MD Primary Care Prov ider Rabia Smith Unavailable Hayde Ortega RN Unavailable Unavailable RxHI Specialty Therapies - ENTYVIO 300 mg IV Every 6 Weeks Status:Under Review (Active) Start date:02/28/2025 Enrollment date:02/28/2025 Related program episode:Home Infusion (Active) Continued Care and Services Coordination
--- OUTSIDE RECORDS SUMMARY | 2025-03-13 08:27 | XMS_ITS ---
Author Name [facility] ([place]) [facility] Address [address] [place] [address] Care Team Providers Care Tire Groover Name Role Phone RICKEY GUADARRAMA Primary Care Provider YOLANDA Chopra Unavailable Unavailable Insurance Providers: All historical and current Section Date Range: From patient's date of to the date document was created. This section includes the names of all active insurance providers for the patient. Insurance Provider Type of Coverage Plan Name Start of Policy Coverage End of Policy Coverage Group Number Member ID Insurance Provider's Telephone Number Policy Contreras's Name Patient's Relationship to Policy Contreras [employer] PRESCRIPT ION RX PLAN Oct 23, 2016 [phone] RICKEY UNDERWOOD PATIENT [facility] Oct 23, 2016 [id number] [phone] RICKEY UNDERWOOD PATIENT [facility] [place] Oct 23, 2016 [id number] [phone] RICKEY UNDERWOOD PATIENT Selected Encounter This section includes the information on record at [place] for the Encounter. Date/Time Encounter Type Encounter Description Reason Provider Source Apr 15, 2024 02:30 PM OFFICE O/P NEW LOW 30 MIN DERMATOLOGY ICD-10-CM L57.0 Actinic keratosis TATIANA JEROME [place] Encounter Template Text not used by [place] Assessments - Encounter Diagnoses This section includes the primary and secondary diagnoses documented for the Encounter. Date/Time Primary/Secondary Diagnosis Diagnosis Name Provider Source Apr 24, 2024 09:51 AM PRIMARY Actinic keratosis DREW GALAN [facility] Encounter Notes: All associated encounter notes This section contains the clinical notes associated to the Encounter. Date/Time Encounter Note(s) Provider Source Apr 15, 2024 02:44 PM DERMATOLOGY CONSUL T: LOCAL TITLE: DERMATOLOGY CONSULT STL STANDARD TITLE: DERMATOLOGY CONSULT DATE OF NOTE: APR 15, 2024@14:44 ENTRY DATE: APR 15, 2024@14:44:33 AUTHOR: DREW GALAN EXP COSIGNER: TATIANA JEROME URGENCY: STATUS: COMPLETED DERMATOLOGY CONSULT STL Has ADDENDA NOTE RICKEY FLOREZ is a WHITE MALE with hx of liver transplant (on tacrolimus and everolimus) who presents for scaly dry elba of skin on face. Allergies: LISINOPRIL ROS: per HPI PE: General Appearance: Well-appearing MALE, NAD; Neuro: A&O; Psych: normal mood and affect Skin exam: Inspected the Scalp/Hair, Head/Face, Conjunctiva/Lids, Lips, Neck, Upper extremities, Chest, Abdomen, and Back Examination normal with the following exceptions: thin scaly papules on right forehead, left brow, and nasal dorsum A/P: 1. Actinic keratoses Reviewed precancerous etiology Pt declines treatment at this time due to upcoming snf libertarian Will RTC in [address] to lesions on L forehead, R brow, and nasal dorsum Return to clinic [address]2 /loni/ Drew Galan MD Dermatology Resident Signed: 04/15/2024 16:21 /martina JEROME MD DERMATOLOGY & DERMATOPATHOLOGY Cosigned: 04/16/2024 10:04 04/16/2024 ADDENDUM STATUS: COMPLETED Reviewed documented history and physical examination and agree with assessment and plan. I was immediately available during entire visit and procedures. /martina JEROME MD DERMATOLOGY & DERMATOPATHOLOGY Signed: 04/16/2024 10:04 DREW GALAN [facility]
--- OUTSIDE RECORDS SUMMARY | 2025-03-13 08:27 | XMS_ITS | Clinical Summary ---
Author Organization [facility] [employer] Address [address] [place] [address] Care Team Providers Care Teacher Tutor Name Role Phone Kyle Kapoor MD Primary Care Provider + Source Comments [facility] [employer],non-[facility] Affiliates and Associated Physician Practices is amultiple site organization consisting of ambulatory clinics and hospital sitesin [place], [place], [place] and [place]. This disclosure is being madepursuant to the Care Everywhere program and may not contain all information available regarding this patient. Last updated 18.[facility] [employer] Allergies Active Allergy Reactions Criticality Noted Date Comments Lisinopril Angioedema,Swelling High 03/18/2022 Medications * Be aware that medications may not be up to date on this document. Alwaysverify current medications with the patient. acetaminophen (TYLENOL) 500 MG tablet Take 500 mg by mouth Active famotidine (PEPCID) 10 MG tablet Active multivitamins (ONE A DAY) capsule Take 1 capsule by mouth once daily Active tacrolimus (PROGRAF) 1 MG capsule Take 5 mg by mouth every 12 hours 0 Active losartan (Cozaar) 25 MG tablet 2 Active everolimus (Zortress) 0.75 MG tablet TAKE 5 TABLETS BY MOUTH TWICE DAILY 2 Active mesalamine EC (Lialda) 1.2 g tablet 2 Active ciclopirox (Penlac) 8 % solution APPLY TOPICALLY TO THE AFFECTED AREA EVERY DAY AT BEDTIME FOR 48 WEEKS 2 Active testosterone cypionate (Depo-Testoster one) 200 MG/ML injection 2 Active Active Problems Problem Noted Date Diagnosed Date Low testosterone in male 09/27/2022 Eczema 09/27/2022 Tinnitus 09/27/2022 Exposure to environmental toxic substances 07/19 Not immune to hepatitis B virus 10/23/2021 Hypertension 09/08/2021 PSC (primary sclerosing cholangitis) 09/08/2021 Annual physical exam - [facility] ent 07/22/2021 High cholesterol 10/23/2020 High risk medications (not anticoagulants) long- term use 08/06/2018 Ulcerative chronic pancolitis without complicati ons 04/09/2018 Overview (09/08/2021): Year of diagnosis: 2002. Year symptoms began: 2001 (diarrhea). Distribution: Extensive (E3). 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 Complications: Mild mesalamine intolerance manifest as urgency and loose stools Prior treatments: Lialda. Current treatment: Lialda 2.4 g daily Prior surgeries: None. Endoscopies: Colonoscopy 08/26/2020 with Alcantara 1 patchy inflammation [...] cold biopsy forceps (tubular adenoma). Imaging: None. Last Assessment & Plan: The patient appears to have some mild [...] 3. Repeat surveillance colonoscopy in August 2021 Chronic kidney disease, stage 3a 05/03/2017 Overview (09/27/2022): Dr. Jasen Bazzi Multifactorial and stable; in part secondary to long-term use of a calcineurin inhibitor. Liver transplanted 08/23/2016 Overview (09/08/2021): Last Assessment & Plan: He has excellent allograft function. I saw no reason to change his current dose of immunosuppression. He will continue to have labs checked on a regular basis. He will return in 2 years or when clinically indicated. High risk for colon cancer 12/28/2015 Overview (09/08/2021): Patient has had ulcerative colitis with primary sclerosing cholangitis since 2001. He also had a tubular adenoma during colonoscopy on 05/15/18. Last Assessment & Plan: Patient will need a repeat colonoscopy in August regardless of whether he advances to [facility]. History of esophageal varices with bleeding 10/2015 Overview (09/27/2022): due to portal hypertension Deviated septum 09/25/2014 Resolved Problems Problem Noted Date Diagnosed Date Resolved Date Hernia of abdominal wall 11/23/2019 Chronic kidney disease, stage 2 (mild) 05/03/2017 09/27/2022 Overview (09/08/2021): Last Assessment & Plan: Multifactorial and stable; in part secondary to long-term use of a calcineurin inhibitor. Obesity with body mass index 30 or greater 05/03/2017 09/27/2022 Personal history of healed traumatic fracture 09/25/20 14 09/08/2021 Other specified disorders of nose and nasal sinuses 09/25/2014 09/08/2021 Deviated nasal septum 09/25/20142021 Wheezing 09/25/2014 09/08/2021 Immunizations Immunization Administration Dates Next Due INFLUENZA VACCINE, TRIV. (AF LURIA, FLUZONE TRIVALENT; 6MO+) (IIV3) 08/31/2013 INFLUENZA VACCINE 07/24/2016 INFLUENZA VACCINE, CELL CULT URE, QUADR. (FLUCELVAX QUADRIVALENT; 6MO+), 0.5 ML (CCIIV4) 08/06/2018 INFLUENZA VACCINE, QUADR. (F LUZONE; FLULAVAL; FLUARIX; AFLURIA QUADRIVALENT; 6MO+), 0.5 ML (IIV4) 07/04/2019 PNEUMOCOCCAL PPSV23 12/28/2015 Pneumococcal Pcv13 Conj 08/06/2018 Family History Medical History Relation Name Comments Hypertension Father Other Father elephantiasis Other - Cardiac Father atrial fibri llation Cancer Mother kidney, spinal Mental Illness Mother Relation Name Status Comments Brother 1 Alive Brother 2 Alive Father Mother Sister Alive Social History Tobacco Use Types Packs/Day Years Used Date Smoking Tobacco: Never Smokeless Tobacco: Never Tobacco Cessation:Counseling Given: Yes Alcohol Use Standard Drinks/Week Comments Yes 0 (1 standard drink = 0.6 oz pur e alcohol) 10 per week PHQ-2 Answer Date Recorded PHQ2 TOTAL SCORE 0 09/24/2022 Sex and Gender Information Value Date Recorded Sex Assigned at Male 09/05/2021 9: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 Legal Sex Male 6:20 PM TUBE SIZER OPERATOR Gender Identity Male 09/05/2021 9: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 Sexual Orientation Straight 09/05/2021 9: 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 Not on file Not on file Not on file Last Filed Vital Signs Vital Sign Reading Time Taken Comments Blood Pressure 146/98 09/26/2022 2:14 PM TUBE SIZER OPERATOR Pulse 85 09/26/2022 1:01 PM TUBE SIZER OPERATOR Temperature 36.7 C (98.1 F) 09/25/2014 2:05 PM TUBE SIZER OPERATOR Respiratory Rate 16 09/26/2022 1:01 PM TUBE SIZER OPERATOR Oxygen Saturation 98% 09/26/2022 1:01 PM TUBE SIZER OPERATOR Inhaled Oxygen Concentration - - Weight 116.9 kg (257 lb 12.8 oz) 09/26/2022 1:01 PM TUBE SIZER OPERATOR Height 186.1 cm (6' 1.25 ) 09/26/2022 1:01 PM CS T Body Mass Index 33.78 09/26/2022 1:01 PM TUBE SIZER OPERATOR Plan of Treatment Health Maintenance Due Date Last Done Comments COLOGUARD (AGES 45-75) - COLON CA SCREENING 1968 COLON MONITORING 1968 COLONOSCOPY - COLON CA SCREENING 1968 CT COLONOGRAPHY - COLON CA SCREENING 1968 Colorectal Cancer Screening 1968 FIT - COLON CA SCREENING 1968 FLEX SIG - COLON CA SCREENING 1968 HIV SCREENING 1983 DTAP/TDAP/TD VACCINES (1 - Tdap) 1987 HEPATITIS B VACCINE (1 of 3 - 19+ 3-dose series) 1987 ZOSTER VACCINE (1 of 2) 1987 PNEUMOCOCCAL VACCINE 50+ (3 of 3 - PPSV23, PCV20 or PCV21) 12/27/2020 08/06/2018, 12/28/2015 PROSTATE CA SCREENING 07/11/2023 07/11/2022, 021 COVID-19 VACCINE ( season) 2024 11/19/2021, 11/19/2021, 06/13/2021, Additional history exists DEPRESSION SCREENING 10/23/2024 09/26/2022 INFLUENZA VACCINE (Season Ended) 2025 07/04/2019, 08/06/2018, 07/24/2016, Additional history exists SCREENING FOR DIABETES 07/11/2025 07/11/2022, 2020 LIPID TESTING 07/11/2027 07/11/2022, 07/28/2021 HEPATITIS C SCREENING Completed 07/11/2022 HIB VACCINE Aged Out No longer eligi ble based on patient's age to complete this topic HPV VACCINE Aged Out No longer eligi ble based on patient's age to complete this topic MENINGOCOCCAL (Group B) VACCINE SHARED DECISION-MAKING Aged Out No longer eligible based on patient's age to complete this topic MENINGOCOCCAL GROUPS A/C/Y/W VACCINE Aged Out No longer eligible based on patient's age to complete this topic Procedures Procedure Name Priority Date/Time Associated Diagnosis Comments COMPREHENSIVE METABOLIC PANEL Routine 07/11/2022 6:53 AM CDT Annual physical exam - [facility] [place] LIPID PROFILE W TCHOL/HDL Routine 07/11/2022 6:53 AM CDT Annual physical exam - [facility] PROSTATE SPECIFIC ANTIGEN SCREEN Routine 07/11/2022 6:53 AM CDT Annual physical exam - [facility] HEPATITIS C ANTIBODY Routine 07/11/2022 6:53 AM CDT Annual physical exam - [facility] from Last 3 Months or Most Recently Relevant to Health Maintenance Results * (ABNORMAL) LIPID PROFILE W TCHOL/HDL (07/11/2022 6:53 AM CDT) Cholesterol 287(H) 100 - 199 mg/dL [facility] ACCOUNT BILL Triglycerides 144 0 - 149 mg/dL [facility] ACCOUNT BILL HDL Cholesterol 57 >39 mg/dL [facility] ACCOUNT BILL VLDL Calculated 26 5 - 40 mg/dL [facility] ACCOUNT BILL LDL Calculated 204(H) 0 - 99 mg/dL [facility] ACCOUNT BILL Comment NOT AVAILABLE [facility] ACCOUNT BILL Comment:Result cannot be obt ained for this observation. Cholesterol/HDL Ratio 5.0 0.0 - 5.0 ratio [facility] ACCOUNT BILL Comment: T. Chol/HDL Ratio Men Women 1/2 Avg.Risk 3.4 3.3 Avg.Risk 5.0 4.4 2X Avg.Risk 9.6 7.1 3X Avg.Risk 23.4 11.0 FASTING Blood BLOOD SPECIMEN / Unknown 07/11/2022 6:53 AM CDT 07/12/2022 Narrative Resulting Agency Comment Lab Testing performed at: [facility] [address] [facility] [id number] us Lencho Cortez MD LAB - CHEMISTRY ORDERABLES Fi nal Result [facility] ACCOUNT BILL [address] [place] [address] * (ABNORMAL) COMPREHENSIVE METABOLIC PANEL (07/11/2022 6:53 AM CDT) Glucose 79 65 - 99 mg/dL [facility] ACCOUNT BILL Comment: Effective July 18, 2022 Glucose reference interval will be changing to: 70 - 99 BUN 38(H) 6 - 24 mg/dL [facility] ACCOUNT BILL Creatinine 1.81(H) 0.76 - 1.27 mg/dL [facility] ACCOUNT BILL eGFR by CKD-EPI 44(L) >59 mL/min/1.7 3 [facility] ACCOUNT BILL BUN/Creatinine Ratio 21(H) 9 - 20 [facility] ACCOUNT BILL Sodium 141 134 - 144 mmol/L [facility] ACCOUNT BILL Potassium 5.4(H) 3.5 - 5.2 mmol/L [facility] ACCOUNT BILL Chloride 106 96 - 106 mmol/L [facility] ACCOUNT BILL CO2 21 20 - 29 mmol/L [facility] ACCOUNT BILL Calcium 9.5 8.7 - 10.2 mg/dL [facility] ACCOUNT BILL Protein Total 7.0 6.0 - 8.5 g/dL [facility] ACCOUNT BILL Albumin 4.5 3.8 - 4.9 g/dL [facility] ACCOUNT BILL Globulin Total 2.5 1.5 - 4.5 g/dL [facility] ACCOUNT BILL Albumin/Globulin Ratio 1.8 1.2 - 2.2 [facility] ACCOUNT BILL Bilirubin Total <0.2 0.0 - 1.2 mg/dL [facility] ACCOUNT BILL Alkaline Phosphatase 105 44 - 121 IU/L [facility] ACCOUNT BILL AST 19 0 - 40 IU/L [facility] ACCOUNT BILL ALT 21 0 - 44 IU/L [facility] ACCOUNT BILL Comment:FASTING Blood BLOOD SPECIMEN / Unknown 07/11/2022 6:53 AM CDT 07/12/2022 Narrative Resulting Agency Comment [facility] [address] [facility] [id number] us Lencho Cortez MD LAB - CHEMISTRY ORDERABLES Fi nal Result [facility] ACCOUNT BILL [address] [place] [address] * PROSTATE SPECIFIC ANTIGEN SCREEN (07/11/2022 6:53 AM CDT) PSA 0.9 0.0 - 4.0 ng/mL [facility] ACCOUNT BILL Comment: Teena ECLIA methodology. . According to the [place] [employer], Serum PSA should decrease and remain at undetectable levels after radical prostatectomy. The AUA defines biochemical recurrence as an initial PSA value 0.2 ng/mL or greater followed by a subsequent confirmatory PSA value 0.2 ng/mL or greater. Values obtained with different assay methods or kits cannot be used interchangeably. Results cannot be interpreted as absolute evidence of the presence or absence of malignant disease. FASTING Blood BLOOD SPECIMEN / Unknown 07/11/2022 6:53 AM CDT 07/12/2022 Narrative Resulting Agency Comment [facility] [address] [facility] [id number] Lencho Cortez MD LAB - CHEMISTRY ORDERABLES Fi nal Result Performing Organization Address [facility] Co de Phone Number [facility] ACCOUNT BILL [address] [place] [address] * HEPATITIS C ANTIBODY (07/11/2022 6:53 AM CDT) Hepatitis C Antibody <0.1 0.0 - 0.9 s/co ratio [facility] ACCOUNT BILL Comment: Negative: < 0.8 Indeterminate: 0.8 - 0.9 Positive: > 0.9 . HCV antibody alone does not differentiate between previous resolved infection and active infection. The CDC and current clinical guidelines recommend that a positive HCV antibody result be followed up with an HCV RNA test to support the diagnosis of acute HCV infection. [facility] offers Hepatitis C Virus (HCV) RNA, Diagnosis, [place] ([id number]) and Hepatitis C Virus (HCV) Antibody with reflex to Quantitative Real-time PCR ([id number]). FASTING Blood BLOOD SPECIMEN / Unknown 07/11/2022 6:53 AM CDT 07/12/2022 Narrative Resulting Agency Comment Lab Testing performed [facility]: [facility] [address] [facility] [id number] us Lencho Cortez MD LAB - CHEMISTRY ORDERABLES Fi nal Result Performing Organization Address City/[facility]/ZIP Co de Phone Number [facility] ACCOUNT BILL [address] [place] [address] from Last 3 Months or Most Recently Relevant to Health Maintenance Care Teams Teacher Tutor Relationship Specialty Start Date End Date Kyle Kapoor MD [address] [place] [address] PCP - General 09/01/14
--- OUTSIDE RECORDS SUMMARY | 2025-03-13 08:27 | XMS_ITS | Encounter Summary ---
Author Organization [facility] Address [address] [place] [address] Phone Care Team Providers Care Spray Technician Name Role Phone Kyle Kapoor MD Primary Care Prov ider Rabia Smith Unavailable Hayde Ortega RN Unavailable Unavailable Encounter Details Date Type Department Care Team (Latest Contact Info) Description 04/27/2023 Orders Only [facility] Scanning, Provider Social History Tobacco Use Types Packs/Day Years Used Date Smoking Tobacco: Never Smokeless Tobacco: Never Alcohol Use Standard Drinks/Week Comments Yes 0 (1 standard drink = 0.6 oz pur e alcohol) socially AUDIT-C Answer Date Recorded Q1: How often do you have a drink containing alc ohol? 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 difficile suspected 02/25/2025 02/25/202502/26 3:06 AM CDT documented as of this encounter Care Teams Spray Technician Relationship Specialty Start Date End Date Kyle Kapoor MD [address] [place] [address] PCP - General 05/03/17 Rabia Smith Transplant 06/26/20 Hayde Ortega, bronze chaserLegal Executive Transplant 03/08/23 documented as of this encounter
--- OUTSIDE RECORDS SUMMARY | 2025-03-13 08:27 | XMS_ITS | Clinical Summary ---
Author Organization [facility] Address [address] [place] [address] Care Team Providers Care Statistician Applied Name Role Phone Kyle Kapoor MD Primary Care Prov ider Rabia Smith Unavailable ForHayde guthrie RN Unavailable Unavailable Allergies Active Allergy Reactions Criticality Noted Date [...] every 6 (six) weeks Site of Care: [facility] Home Care ([facility] order in Epic under 'Procedures' tab). Active psyllium seed, with sugar, (FIBER ORAL)Indication s:Other Take 1 tablet/capsul e by mouth daily. Indications: OTHER Active 0.9 % sodium chloride ([facility] sodium chloride 0.9%) injectionIndica tions:Maintain Patency of [...] mouth 30 minutes prior to infusion. 01/17/20 026 Active acetaminophen (TYLENOL) 325 mg tabletIndicatio ns:Other,(infus ion pre-medication) Take 2 tablets (650 mg total) by mouth every 6 (six) weeks Take by mouth 30 minutes prior to infusion. 01/17/20 026 Active traZODone (DESYREL) 50 mg tablet [...] migh t be different from the original. Lab:[facility] Labs good for 1 year Last labs sent: 11/11/2024 EF Problem Noted Date Diagnosed Date Dyslipidemia 11/09/2023 Personal history of immunosuppressive therapy Assessment & Plan (02/05/2025 12:38 PM CDT): The patient will continue close lab monitoring. He is advised to stay up-to-date with his vaccinations and skin checks Proteinuria 11/08/2023 Renal osteodystrophy 11/08/2023 GERD (gastroesophageal reflux disease) 3 Overview (02/21/2023): Experiencing worsening GERD symptoms despite [...] level prior to his next infusion. Unclear [facility] has the ability to perform this test [...] reasonable. Assessment & Plan (09/27/2021 11:33 AM WAREHOUSE CHECKER): : mixed bm. likley mild activity. rec back to 4.8 lialda. Colon in Oct 2021. Offered antidepressant for ongoing stress related to work. Feels unneccessary for now. Try to imit dairy. See healthcare administration internship. Increase fiber. Assessment & Plan (04/10/2021 11:14 [...] 2021 Assessment & Plan (12/18/2020 7:29 PM WAREHOUSE CHECKER): The patient reports substantial improvement in his [...] medication. Assessment & Plan (09/07/2020 6:03 PM WAREHOUSE CHECKER): Increased sympotoms and endo to alcantara 1, mild to moderate activity. chekcing stools and starting uceris. mikala need biologic at some time. I would like the Uceris to be taken for about 2 months and then have a little time off of and then be re-evaluated by our BINGO WORKER. If needed we can consider other therapies. [...] patient will continue to follow closely with music instructor. He is encouraged to drink plenty of water Assessment & Plan (08/28/2024 12:04 PM WAREHOUSE CHECKER): He will continue to f/u with nephrology [...] transplant. Assessment & Plan (08/28/2024 12:06 PM WAREHOUSE CHECKER): Patient is s/p liver transplant with mariza [...] this. Assessment & Plan (08/28/2024 12:07 PM WAREHOUSE CHECKER): Continue with zepbound. Has lost ~30 lbs [...] (10/24/2019): Added automatically from request for surgery [id number] High risk medications (not a nticoagulants) long-term [...] 2022 Assessment & Plan (12/18/2020 7:30 PM WAREHOUSE CHECKER): Patient will need a repeat colonoscopy in August regardless of whether he advances to [facility]. Assessment & Plan (09/07/2020 5:54 PM WAREHOUSE CHECKER): Yearly colonoscopy Assessment & Plan (08/06/2018 11:01 AM CDT): - Surveillance colonoscopy will be arranged in yearly. - Needs split prep and chromoendoscopy. Hernia of anterior abdominal wall 09/06/2017 08/18/2021 Anemia 04/04/2016 08/18/2021 At risk of disease 12/28/2015 3 Right upper quadrant abdominal pain 01/26/2015 08/06/2018 Encounters Date Type Department Care Team Description 03/07/2025 1:00 PM CDT Home Care Visit [address] [place] [address] Erik Dillard RN SN INFUSION TREATMENT ROOM 02/26/2025 10:00 AM CDT Office Visit [facility] Gasteroenterology [address] [facility] 12th [place] [address] [place] [phone] Yi Lora NP History of liver transplant (HCC) (Primary Dx); Personal history of immunosuppressive therapy 02/25/2025 Documentation [facility] Gastroenterology [address] [facility] Medical Office Building [address] [place] [phone] Tiarra Hdz RN Symptoms and recommendations 02/23/2025 Documentation Gastroententerolo gy Trisha Rosales M.A. 02/18/2025 Telephone [facility] Transplant Liver [address] [place] [address] [address] Mailstop [phone] [place] [address] Hayde Ortega RN 02/17/2025 Results Follow-Up [facility] Transplant Liver [address] [facility] [address] Mailstop [phone] [place] [address] Hayde Ortega RN MRI Abdomen MRCP W WO Contrast Incl 3D 02/14/2025 3:38 PM CDT - 02/14/2025 11:59 PM CDT Hospital Encounter [facility] [address] [place], [place] [id number] Chey Lemus MD History of liver transplant (HCC); Elevated serum GGT level; PSC (primary sclerosing cholangitis) (HCC) Discharge Disposition: Discharge to home or self care 02/14/2025 3:00 PM CDT Office Visit [facility] Nephrology [address] [facility] 5th [place] [address] [place] [phone] Arik Upton MD Stage 3b chronic kidney disease (HCC) (Primary Dx); Primary hypertension; Persistent proteinuria; Renal osteodystrophy 02/06/2025 Documentation [facility] [address] [place] [address] Medical Office [address] [place] [phone] Tiarra Hdz RN Post clinic review and recommendations 02/04/2025 10:30 AM CDT Office Visit [facility] Gastroenterology [address] [place] [address] Medical Office Building [address] [place] [phone] Belinda Bowser NP Ulcerative chronic pancolitis without complications (HCC) (Primary Dx); History of liver transplant (HCC); Gastroesophageal reflux disease without esophagitis; Obesity with body mass index 30 or greater; Stage 3b chronic kidney disease (HCC); Personal history of immunosuppressive therapy 01/27/2025 Telephone [facility] Transplant Liver [address] [facility] [address] Mailstop [phone] [place] [address] Hayde Ortega RN 01/27/2025 Results Follow-Up [facility] Transplant Liver [address] [facility] [address] Mailstop [phone] [place] [address] Hayde Ortega RN Comprehensive metabolic panel, CBC with auto differential, Gamma GT, Additional followed-up results: 4 01/24/2025 10:00 AM CDT Home Care Visit [address] [address] [address] [place] [address] Dunia Christian RN INFUSION TREATMENT ROOM 01/24/2025 9:30 AM CDT - 01/24/2025 11:59 PM CDT Hospital Encounter [facility] [address] [place] [address] Discharge Disposition: Discharge to home or self care 01/16/[address] [facility] Home Care Services [address] [facility] [address] [place] [phone] Tate Dueñas, [facility] 01/16/[address] [facility] Home Care Services [address] [facility] [address] [place] [phone] Ulisses Larson, [facility] 12/24/2024 Telephone [facility]astroenter[facility] [address] [facility] 12th [place] [address] [place] [address] Paris Lee LPN Med Management (Entyvio Q6wks); Approved 12/24/2024 Documentation [facility] [address] [facility] 12th [place] [address] [place] [address] Tiarra Hdz RN Entyvio dosage frequency q6w 12/23/2024 Results Follow-Up [facility] [address] [place] [address] Medical Office Building [address] [place] [phone] Belinda Bowser, JOSE Comprehensive metabolic panel, without glucose (Outreach), Glucose, random (Outreach), CBC with auto differential, Additional followed-up results: 5 from Last 3 Months Immunizations Immunization Administration Dates Next Due Influenza, Quadrivalent, Heather l Culture-based MDCK, Antibiotic Free, Intramuscular 08/06/2018 Influenza, Quadrivalent, Spl it, Preservative Free, Intramuscular 07/04/2019 Influenza, Trivalent, IM (MDV) 08/31/2013 Influenza, Unspecified 07/24/2016 Pfizer SARS-CoV-2 Monovalent Vaccination (12+ Yrs) SMITH-READY TO USE 11/19/2021 Pfizer SARS-CoV-2 Monovalent Vaccination (12+ Yrs) PURPLE 11/19/2021 Pneumococcal Conjugate PCV 13 08/06/2018 Pneumococcal Polysaccharide PPV23 12/28/2015 Surgical History Surgery Date Site/Laterality Comments UT LVR ALTRNSPLJ ORTHOTOPIC PRTL/WHL DON ANY AGE 110/23/2015 - 10/22/20 16 Liver Transplant - Orthotopic - (Added by TW Conv) UT COLONOSCOPY FLX DX W/ONDINA J SPEC WHEN PFRMD Complete Colonoscopy - (Added by TW Conv) UT ESOPHAGOGASTRODUODENOSCOP Y TRANSORAL DIAGNOSTIC Diagnostic Esophagogastroduodenoscopy - (Added by TW Conv) LIVER SURGERY CHOLECYSTECTOMY COLONOSCOPY UPPER GASTROINTESTINAL ENDOSCOPY VENTRAL HERNIA REPAIR 10/23/2019 - 10/22/20 20 POLYPECTOMY Medical History Medical History Date Comments Cholangitis (HCC) Primary sclero sing cholangitis - (Added by TW Conv) Personal history of other sp ecified conditions History of fever - (Added by TW Conv) Personal history of other sp ecified conditions History of ascites - (Added by TW Conv) Personal history of other di seases of the digestive system History of esophageal varice s - (Added by TW Conv) Personal history of other di seases of the digestive system History of cirrhosis - (Adde d by TW Conv) Decreased libido Decreased libid o - (Added by TW Conv) PSC (primary sclerosing chol angitis) (HCC) 04/09/2018 Liver transplanted (HCC) Ulcerative colitis (HCC) Hypertension History of transfusion GERD (gastroesophageal reflux disease) Hernia of anterior abdominal wall 09/06/2017 Colon polyp Sleep apnea Chronic diarrhea GI bleed Chronic kidney disease Cirrhosis (HCC) Family History Medical History Relation Name Comments Cancer Mother Family history of malignant neoplasm - (Added by TW Conv) Anesthesia problems Neg Hx Relation Name Status Comments Mother Social History Tobacco Use Types Packs/Day Years [...] on file Legal Sex Male 6:19 PM WAREHOUSE CHECKER Gender Identity Male 04/08/2021 8:30 PM CDT Sexual Orientation Not on file Obstetrics History Last Filed Vital Signs Vital Sign Reading [...] 02/26/2025 10:10 AM CDT Plan of Treatment Health Maintenance Due Date Last Done Comments Depression Screening 1970 Prostate Cancer Screening-PSA 1970 DTaP/Tdap/Td Vaccine (1 - Tdap) 1979 Regular Well Visit/Exam 18-64 1986 Zoster Vaccine (1 of 2) 1987 Pneumococcal vaccine <65 (3 of 3 - PPSV23, PCV20 or PCV21) 12/27/2020 08/06/2018, 12/28/2015 Covid-19 Vaccine (2 - Pfizer risk series) 12/10/2021 11/19/2021, 11/19/2021 Influenza Vaccine (Season Ended) 2025 07/04/2019, 08/06/2018, 07/24/2016, Additional history exists Colon Cancer Screening-Colonoscopy 10/08/2034 10/08/2024, 04/09/2024, 12/27/2022, Additional history exists Hepatitis C Screening Completed 08/16/2016, 016 Hepatitis B Screening Completed 05/06/2024 Colon Cancer Screening-CT Colonography Discontinued 10/08/2024, 04/09/2024, 12/27/2022, Additional history exists Colon Cancer Screening-DNA Stool Discontinued 10/08/2024, 04/09/2024, 12/27/2022, Additional history exists Colon Cancer Screening-FIT Discontinued 10/08, 04/09/2024, 12/27/2022, Additional history exists Colon Cancer Screening-Sigmoidoscopy Discontinued 10/08/2024, 04/09/2024, 12/27/2022, Additional history exists Medical Devices Implanted Type Area Leasing Manager Device Identifier Shelf Expiration Date Model / Serial / Lot [employer]/C R Bard [id number] Monofilament Soft Lightweight Low Profile Square - [id number] Implanted:Qty: 1 on 11/20/2019 by Sarina Adame MD at [facility] Mesh N/A: Abdomen [employer] Bard [id number] 07/20/2024 [id number] / / [id number] Procedures Procedure Name Priority Date/Time Associated Diagnosis [...] 9:30 AM CDT COLONOSCOPY 10/08/2024 11:17 AM WAREHOUSE CHECKER SERUM HEPATITIS C AB Routine 08/16/2016 6:29 [...] it. Electronically signed by: Moy Dejesus M.D. Chey Lemus MD [facility] PROCEDURES F inal Result * Everolimus level trough (01/24/2025 9:30 AM CDT) Everolimus trough 4.2 ng/mL Comment: Interpretive Data Testing performed by liquid chromatography-tandem mass spectrometry. Therapeutic concentrations vary depending on type of transplanted organ and time elapsed since transplant. Typical trough concentrations range from 3-8 ng/mL. This test was developed and its performance characteristics determined by the [facility] consistent with CLIA requirements. This test has not been cleared or approved by the [place] Food and Drug administration. Current interpretive data last reviewed 2019. Blood 01/24/2025 9:30 AM CDT 01/24/2025 1:54 PM CDT Vamsi Paz MD LAB BLOOD ORDERABLES Fin al Result Performing Organization Address City/[facility] Co de Phone Number [facility] Department [place] [address] * (ABNORMAL) eGFR (01/24/2025 9:30 AM CDT) eGFR 37(L) >=60 mL/min/1. 73 m2 Comment: [...] LAB BLOOD ORDERABLES Fin al Result [facility] [place] [address] * Differential, auto (01/24/2025 9:30 AM CDT) Neutrophil abs 4.06 1.50 - 6.50 K/cumm Imm gran abs 0.01 0.00 - 0.10 K/cumm [facility] Lymphocyte abs 1.76 0.80 - 3.30 K/cumm [facility] Monocyte abs 0.64 0.20 - 0.80 K/cumm [facility] Eosinophil abs 0.15 0.00 - 0.50 K/cumm [facility] Basophil abs 0.05 0.00 - 0.10 K/cumm [facility] Neutrophil pct 61.0 % [facility] Comment: Interpretive Data Percent cell count reference ranges are not reported, since discordance with absolute values may lead to misinterpretation of CBC data. Current Interpretive Data was last revised on 2018. Imm gran pct 0.1 % [facility] Comment: Interpretive Data Percent cell count reference ranges are not reported, since discordance with absolute values may lead to misinterpretation of CBC data. Current Interpretive Data was last revised on 2018. Lymphocyte pct 26.4 % [facility] Comment: Interpretive Data Percent cell count reference ranges are not reported, since discordance with absolute values may lead to misinterpretation of CBC data. Current Interpretive Data was last revised on 2018. Monocyte pct 9.6 % [facility] Comment: Interpretive Data Percent cell count reference ranges are not reported, since discordance with absolute values may lead to misinterpretation of CBC data. Current Interpretive Data was last revised on 2018. Eosinophil pct 2.2 % [facility] Comment: Interpretive Data Percent cell count reference ranges are not reported, since discordance with absolute values may lead to misinterpretation of CBC data. Current Interpretive Data was last revised on 2018. Basophil pct 0.7 % [facility] Comment: Interpretive Data Percent cell count reference ranges are not reported, since discordance with absolute values may lead to misinterpretation of CBC data. Current Interpretive Data was last revised on 2018. Blood 01/24/2025 9:30 AM CDT 01/24/2025 1:53 PM CDT us Vamsi Paz MD LAB BLOOD ORDERABLES Fin al Result [facility] Department [place] [address] * Tacrolimus level trough (01/24/2025 9:30 AM CDT) Pathologist [facility] Tacrolimus trough 4.9 ng/mL Comment: Interpretive Data Testing performed by liquid chromatography-tandem mass spectrometry. Therapeutic concentrations vary depending on type of transplanted organ and time elapsed since transplant. Typical trough concentrations range from 5-15 ng/mL. This test was developed and its performance characteristics determined by the [facility] consistent with CLIA requirements. This test has not been cleared or approved by the [place] Food and Drug administration. Current interpretive data last reviewed 2020. Blood 01/24/2025 9:30 AM CDT 01/24/2025 1:54 PM CDT us Vamsi Paz MD LAB BLOOD ORDERABLES Fin al Result [facility] Department [place] [address] * (ABNORMAL) CBC with auto differential (01/24/2025 9:30 AM CDT) [facility] WBC 6.67 3.80 - 9.90 K/cumm Hgb 15.4 13.0 - 17.5 g/dL [facility] Hct 46.8 38.9 - 50.3 % [facility] Plt 219 150 - 400 K/cumm [facility] MPV 10.8 9.1 - 12.3 fL [facility] RBC 5.54 4.30 - 5.80 M/cumm [facility] MCV 84.5 81.3 - 96.4 fL [facility] MCH 27.8 27.1 - 33.3 pg [facility] MCHC 32.9 32.3 - 35.7 g/dL [facility] RDW CV 15.7(H) 11.1 - 14.9 % [facility] RDW SD 47.2 35.7 - 48.1 fL [facility] NRBC abs 0.00 0.00 - 0.01 K/cumm [facility] Blood 01/24/2025 9:30 AM CDT 01/24/2025 1:53 PM CDT Vamsi Paz MD LAB BLOOD ORDERABLES Fin al Result Performing Organization Address [facility] Co de Phone Number [facility] Department [place] [address] * (ABNORMAL) Gamma GT (01/24/2025 9:30 AM CDT) Pathologist [facility] GGT 91(H) 10 - 50 Units/L Blood 01/24/2025 9:30 AM CDT 01/24/2025 1:52 PM CDT Vamsi Paz MD LAB BLOOD ORDERABLES Fin al Result Performing Organization Address [facility] de Phone Number [facility] Department [place] [address] * (ABNORMAL) Comprehensive metabolic panel (01/24/2025 9:30 AM CDT) [facility] Sodium 143 135 - 145 mmol/L Potassium, pl 4.2 3.3 - 4.9 mmol/L [facility] Chloride 102 97 - 110 mmol/L [facility] CO2 28 22 - 32 mmol/L [facility] Anion gap 13 2 - 15 mmol/L [facility] BUN 27(H) 6 - 25 mg/dL [facility] Creatinine 2.07(H) 0.80 - 1.30 mg/dL [facility] Glucose 62(L) 70 - 199 mg/dL [facility] Comment: Interpretive Data Fasting glucose >/= [...] classification and Diagnosis of Diabetes Diabetes Care 2021; 46: S19-S40. Current interpretive data was last revised 2022. Calcium 9.6 8.5 - 10.3 mg/dL [facility] Bilirubin, total 0.5 0.1 - 1.2 mg/dL [facility] Protein, pl 8.3 6.5 - 8.5 g/dL [facility] Albumin 4.5 3.5 - 5.0 g/dL [facility] Alk phos 122 40 - 130 Units/L [facility] ALT 40 7 - 55 Units/L [facility] AST 33 10 - 50 Units/L [facility] Blood 01/24/2025 9:30 AM CDT 01/24/2025 1:52 PM CDT us Vamsi Paz MD LAB BLOOD ORDERABLES Fin al Result [facility] Department [place] [address] * Colonoscopy (10/08/2024 11:17 AM WAREHOUSE CHECKER) Anatomical Region Laterality Modality Other Narrative Procedure Note Vamsi Paz MD - 10/08/2024 11:17 AM CST ENDOSCOPY LAB Patient Name: Rickey Whitehead Procedure Date: 10/08/2024 11:17AM Date of : 1970 Admit Type: Outpatient Age: 54 Gender: Male Attending MD: Vamsi Paz M.D. Room: [facility] ENDOSCOPY ROOM 05 Note Status: Finalized Procedure: [...] The scope was passed under direct vision.The [id number] was introduced through the anusand advanced to [...] RNA Detection and Quantitation by Real-Time Reverse Safekeeping Clerk-PCR (RT-PCR). Current interpretive data was last revised on 2016. Kendra Anaya MD LAB BLOOD ORDERABLES Final Result CDR HISTORICAL RESULTS from Last 3 Months or Most Recently Relevant to Health Maintenance Insurance [facility] CHOICE PLUS CHOICE PLUS CHOICE PLUS Advance Directives For more information, please contact: [phone] * Full Code (Latest Code Status on [...] 12:48 PM 08/27/2020 7:55 PM Care Teams Statistician Applied Relationship Specialty Start Date End Date Kyle Kapoor MD [address] [place] [address] PCP - General 05/03/17 Rabia Smith Transplant 06/26/20 Hayde Ortega RN Vessel Slag Worker Transplant 03/08/23
--- OUTSIDE RECORDS SUMMARY | 2025-03-13 08:27 | XMS_ITS ---
Author Organization [facility] Address [address] [place] [address] Care Team Providers Care Marketing Analytics Analyst Name Role Phone Kyle Kapoor MD Primary Care Prov ider Rabia Smith Unavailable Hayde Ortega RN Unavailable Unavailable Home Infusion Status:Enrolled (Active) Start date:02/28/2025 Enrollment date:02/28/2025 Related service episodes:[facility] Specialty Therapies - ENTYVIO 300 mg IV Every 6 Weeks (Active) Continued Care and Services Coordination
--- OUTSIDE RECORDS SUMMARY | 2025-03-13 08:27 | XMS_ITS ---
Author Name [facility] Organization [facility] Address [address] [place] [address] Care Team Providers Care Production Director Name Role Phone RICKEY SALVADOR Primary Care Provider UnavailYOLANDA Shook Unavailable Unavailable Insurance Providers: All historical and [...] PRESCRIPT ION RX PLAN Oct 23, 2016 [id number] [phone] RICKEY UNDERWOOD PATIENT [facility] Oct 23, 2016 [id number] [phone] RICKEY UNDERWOOD PATIENT [facility] POINT OF SERVICE [facility] Oct 23, 2016 [id number] [id number] [phone] RICKEY UNDERWOOD PATIENT Selected Encounter This section includes the information on record at MD for the Encounter. Date/Time Encounter Type Encounter Description Reason Provider Source Mar 28, 2024 01:15 PM OFFICE O/P EST MOD 30 MIN PRIMARY CARE/MEDICINE ICD-10-CM K51.90 Ulcerative colitis, unspecified, without complications RICKEY SALVADOR [place] Encounter Template Text not used by MD Assessments - Encounter Diagnoses This section includes the primary and secondary diagnoses documented for the Encounter. Date/Time Primary/Secondary Diagnosis Diagnosis Name Provider Source Apr 08, 2024 06:50 AM PRIMARY Ulcerative colitis, unspecified, without complications [facility] Apr 08, 2024 06:50 AM SECONDARY Chronic kidney disease, stage 3b [facility] Apr 08, 2024 06:50 AM SECONDARY Essential (primary) hypertension [facility] Apr 08, 2024 06:50 AM SECONDARY Gastro-esophageal reflux disease without esophagitis [facility] Apr 08, 2024 06:50 AM SECONDARY Liver transplant status [facility] Apr 08, 2024 06:50 AM SECONDARY Primary sclerosing cholangitis [facility] Plan of Treatment: Future Appointments (+ 6 months) and Future Tests (+/- 45 days) The Plan of Treatment section includes future care activities for the patient from all [facility]. This section includes future appointments and future orders which are active, pending or scheduled. Future Appointments This section includes appointments that were scheduled to occur 6 months from the date of the Encounter, up to a maximum of 20 appointments. The data comes from all MD treatment facilities. Appointment Date/Time Appointment Type Appointme nt Facility Name Apr 15, 2024 02:30 PM AMBULATORY - MEDICINE [facility] Vital Signs: All taken on the encounter date This section contains inpatient and outpatient Vital Signs collected on the date of the Encounter. Date/Time Temperature Pulse Blood Pressure Respiratory Rate SP02 Pain Height Weight Body Mass Index Source Mar 28, 2024 01:28 PM 98.1 86 128/86 16 97 0 74 262.1 34 [facility] Social History: Smoking Status (Most current) and Tobacco Use (All prior to encounter date) This section includes the most current, and the historical, smoking and tobacco- related health factors from the MD facility where the Encounter took place. Current Smoking Status This section includes the most current smoking, or tobacco-related health factor, from the MD facility where the Encounter took place. Date/Time Current Smoking Status Comment [place] Mar 28, 2024 01:15 PM VA-TOBACCO NEVER USED [facility] Tobacco Use History This section includes a history of the smoking, or tobacco-related health factors, that were collected on or before the date of the Encounter. The data comes from the MD facility where the Encounter took place. Date/Time Smoking Status/Tobacco Use Comment F acjose 2023 09:00 AM VA-TOBACCO NEVER USED [facility] Encounter Notes: All associated encounter notes This section contains the clinical notes associated to the Encounter. Date/Time Encounter Note(s) Provider Source Mar 28, 2024 01:41 PM NURSING NOTE: LOCAL TITLE: V15 PACT FACE TO FACE NOTE ST STANDARD TITLE: NURSING NOTE DATE OF NOTE: MAR 28, 2024@13:41 ENTRY DATE: MAR 28, 2024@13:41:47 AUTHOR: DAVIN JORGENSEN EXP COSIGNER: URGENCY: STATUS: COMPLETED Provider Visit: Patient Identifiers : Full Name Date of Reason for visit: Established Follow-Up Mode of Arrival: Ambulatory Allergy Review: LISINOPRIL Allergy list reviewed and remains current. Recent Vital Signs: Temperature: 98.1 F [36.7 C] (03/28/2024 13:28) Pulse: 86 (03/28/2024 13:28) Respiration: 16 (03/28/2024 13:28) B/P: 128/86 (03/28/2024 13:28) Pain: 0 (03/28/2024 13:28) Wt: 262.1 lb [118.89 kg] (03/28/2024 13:28) Ht: 74 in [188.0 cm] (03/28/2024 13:28) BMI: 33.7 POX: 97% (03/28/2024 13:28) Would you like to discuss any personal problem, family problem, alcohol use, drug use, or a mental or emotional illness? No Contact provided Primary Care phone number and encouraged to call if any questions or concerns. Review that after hours nurse line [phone] and emergency room are available 15/05 for patient use. Contact verbalized good understanding. Suicide Screen: C-SSRS Screening [place]-Suicide Severity Rating Scale (C-SSRS Screener) 1. Over the past month, have you wished you were or wished you could go to sleep and not wake up? No 2. Over the past month, have you had any actual thoughts of killing yourself? No 3. Over the past month, have you been thinking about how you might do this? Response not required due to responses to other questions. 4. Over the past month, have you had these thoughts and had some intention of acting on them? Response not required due to responses to other questions. 5. Over the past month, have you started to work out or worked out the details of how to kill yourself? Response not required due to responses to other questions. 6. If yes, at any time in the past month did you intend to carry out this plan? Response not required due to responses to other questions. 7. In your lifetime, have you ever done anything, started to do anything, or prepared to do anything to end your life (for example, collected pills, obtained a gun, gave away valuables, went to the roof but didn't jump)? No 8. If YES, was this within the past 3 months? Response not required due to responses to other questions. Alcohol Use Screen (AUDIT-C): Alcohol Screen: SCREEN FOR ALCOHOL (AUDIT-C) An alcohol screening test (AUDIT-C) was negative (score=4). 1. How often did you have a drink containing alcohol in the past year? Consider a drink to be a 12 ounce can or bottle of regular beer, 8 ounces of malt liquor, a 5 ounce glass of table wine, or a 1.5 ounce shot of liquor (like scotch, gin, or vodka). Two to three times per week 2. How many drinks containing alcohol did you have on a typical day when you were drinking in the past year? Three or four drinks 3. How often did you have six or more drinks on one occasion in the past year? Never Depression Screening: Perform PHQ-2 A PHQ-2 screen was performed. The score was 0 which is a negative screen for depression. Over the past two weeks, how often have you been bothered by the following problems? 1. Little interest or pleasure in doing things Not at all 2. Feeling down, depressed, or hopeless Not at all Homelessness/Food Insecurity Screen: In the past 2 months, have you been living in stable housing that you own, rent, or stay in as part of a household? Yes - Living in stable housing. Are you worried or concerned that in the next 2 months you may NOT have stable housing that you own, rent, or stay in as part of a household? No - Not worried about housing near future The reports the following: Within the past 12 months, you worried whether your food would run out before you got money to buy more. Never true Within the past 12 months, the food you bought just didn't last and you didn't have money to get more. Never true Tobacco Use Screening: The patient has never used tobacco. /loni/ DAVIN JORGENSEN LPN LICENSED PRACTICAL NURSE Signed: 03/28/2024 13:[address] [facility] Mar 28, 2024 01:31 PM PRIMARY CARE NOTE: LOCAL TITLE: PRIMARY CARE PROVIDER ESTABLISHED VISIT [facility] STANDARD TITLE: PRIMARY CARE NOTE DATE OF NOTE: MAR 28, 2024@13:31 ENTRY DATE: MAR 28, 2024@13:31:34 AUTHOR: YOLANDA BEASLEY COSIGNER: RICKEY SALVADOR URGENCY: STATUS: COMPLETED PRIMARY CARE PROVIDER ESTABLISHED VISIT [facility] PRIMARY CARE PROVIDER ESTABLISHED VISIT [facility] CL[facility] NOTE RICKEY FLOREZ TIN is a 54 year old MALE with a PMHx of primary sclerosing cholangitis c/b cirrhosis s/p OLT in 2016, CKD stage 3b and GERD who presents to clinic on MAR 28, 2024 for a follow-up visit. Overall, patient states he is doing well. 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 He is a new grandfather. He is teaching his twin sons how to drive. He exercises with a combination of cardio and strength training at least a few times a week. Has not seen considerable changes in weight but states he feels he has gained muscle and feels better overall. He noted patches of dry, scaly skin on his face. He has not seen a director of elementary education. He wears hats but does not really wear sunscreen. They are not bothering him but he would like to be seen by a director of elementary education. His care otherwise (nephrology, GI, liver transplant team) is through [facility]. He is happy with that and would like to continue to follow-at the [facility] for primary care services. MEDICAL HISTORY: 1) Ulcerative Colitis ([facility] [id number]) 2) Sclerosing cholangitis 3) HTN - Hypertension ([facility] [id number]) 4) Chronic Kidney Disease Stage 3B ([facility] [id number]) 5) Liver transplant recipient 6) Exposure to potentially hazardous substance ALLERGIES: LISINOPRIL Active Outpatient Medications (including Supplies): Active Non-VA Medications Status 1) Non-VA CHLORTHALIDONE 25MG TAB 25MG BY MOUTH ONCE A ACTIVE DAY 2) Non-VA EVEROLIMUS 0.5MG TAB 2MG BY MOUTH TWICE A DAY ACTIVE 3) Non-VA LOSARTAN 100MG TAB 100MG BY MOUTH ONCE A DAY ACTIVE 4) Non-VA MESALAMINE 1200MG EC TAB 4800MG BY MOUTH ONCE ACTIVE A DAY 5) Non-VA OMEPRAZOLE 20MG EC CAP 20MG BY MOUTH EVERY ACTIVE MORNING BEFORE A MEAL 6) Non-VA TACROLIMUS (PROGRAF) 5MG CAP 5MG BY MOUTH ACTIVE TWICE A DAY REVIEW OF SYSTEMS: 10 point ROS obtained and negative unless otherwise stated in HPI Vital Signs: Pulse: 86 (03/28/2024 13:28) BP: 128/86 (03/28/2024 13:28) RESP: 16 (03/28/2024 13:28) Pain: 0 (03/28/2024 13:28) Weight: 262.1 lb [118.89 kg] (03/28/2024 13:28) BMI: 33.7 PHYSICAL EXAM: General: cooperative, well appearing, no acute distress HEENT: atraumatic, symmetric, sclera anicteric Neck: No JVD CV: RRR, normal S1/S2, no murmurs Lungs: CTAB, no rales Abd: nontender, nondistended, nml bowel sounds Skin: few rough, scaly patches on face; otherwise no obvious skin lesions; warm & dry Neuro: A&O, follows commands, no focal deficits, CN II-XII grossly intact Ext: 5/5 strength in all extremities, 2+ pulses, good sensation throughout LAB DATA: Will review through [facility]. IMAGING: Will review through [facility]. ASSESSMENT/PLAN: RICKEY FLOREZ is a 54 year old MALE seen in clinic for follow-up. #. Primary sclerosing cholangitis s/p OLT in 2016: Follows with the transplant service at [facility]. Patient will inquire with team about getting vaccinations (Shingrix and TDAP). If appropriate, is aware he can get vaccinated here if preferred. - Continue tacrolimus 5 mg BID - Continue everolimus 2 mg in AM and 3mg in PM #. UC: Follows with Dr. Marcus Paz at [facility]. States symptoms are at baseline. Some days are better than others. Does not have urgency. Primarily loose stools. - Continue mesalamine - Has colonoscopy scheduled March 2024 #. GERD: Stable on omeprazole 20mg - Continue PPI #. HTN: Normotensive at today's appointment on recheck (128/86 mmHg) - Continue losartan 100mg #. 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 Follows with Dr. Bazzi at [facility] who has retired or will be retiring soon so patient will establish care with a different reverberatory furnace operator at [facility]. Baseline Cr ~ 1.9-2.0 - Continue follow-up with [facility] - Labs are done at [facility] #. Actinic keratosis: cumulative sun exposore with resultant sun damage to skin. Doesn't report seeing a director of elementary education for a full body skin exam. Discussed importance given sun exposure and immunosuppression, specifically being on everolimus. - Outpatient dermatology consult/referral #. Health maintenance - Receives colonoscopy yearly through [facility] due to high risk status from immunosuppression + UC. Next colonoscopy is March 2024 - Consult to dermatology for full body skin examination ordered Return to clinic in about one year for follow-up. Patient seen and discussed with Dr. Salvador. /loni/ YOLANDA BEASLEY INTERNAL MEDICINE RESIDENT, PGY-2 Signed: 03/29/2024 14:50 /loni/ RICKEY SALVADOR MD, MD Cosigned: 04/01/2024 08:54 04/01/2024 ADDENDUM STATUS: COMPLETED CLINIC ATTENDING I have personally seen and evaluated patient, reviewed CPRS and discussed case with resident Dr. beasley whom I supervised during this visit. Detailed history and findings as noted by resident. I agree with the plan as outlined in the resident note which I discussed with the patient. He was advised to contact us or RTC/ER for interim problems. /loni/ RICKEY SALVADOR MD, MD Signed: 04/01/2024 08:[address] [facility]
[2025-03-13 09:26] LABS: Alanine Aminotransferase 26 U/L (6-50); Albumin Level 4.5 g/dL (3.5-5.1); Alkaline Phosphatase 87 U/L (38-126); Anion Gap 11 mmol/L (4-12); Aspartate Amino Transferase 33 U/L (17-59); Bilirubin,Total 0.5 mg/dL (0.2-1.3); Blood Urea Nitrogen 36 mg/dL (9-20); Carbon Dioxide 26 mmol/L (22-30); Chloride 105 mmol/L (98-107); Cholesterol 260 mg/dL (0-200); Estimated Glomerular Filt Rate 34; Glucose 79 mg/dL (65-110); HDL Direct 55 mg/dL; Potassium 3.9 mmol/L (3.4-5.0); Sodium 142 mmol/L (137-145); Triglycerides 182 mg/dL (<150)
[2025-03-13 09:37] LABS: LDL Cholesterol Direct 134 mg/dL
[2025-03-13 16:28] LABS: Toxigenic C. Diff NEGATIVE (NEGATIVE)
== END 2025-03-13 08:25 | disposition home or self-care (01) ==
PROVIDERS: PCP Family Medicine Adolescent Medicine; Visit Provider Nurse Practitioner Family
DX: K51.00 Ulcerative (chronic) pancolitis without complications (principal); R19.7 Diarrhea, unspecified; E78.00 Pure hypercholesterolemia, unspecified; Z94.4 Liver transplant status; Z92.25 Personal history of immunosuppression therapy
CPT/HCPCS: 36415; 80053; 80061; 83993; 87045; 87177; 87209; 87427; 87449; 87493

== ENCOUNTER 2025-04-29 08:35 | Outpatient (CLI) | payer OTHER, SELFPAY ==
--- OUTSIDE RECORDS SUMMARY | 2025-04-29 08:40 | XMS_ITS | Encounter Summary ---
Author Name [facility] Organization [facility] Address [address] [place] [address] Care Team Providers Care After School Program Teacher Name Role Phone RICKEY SALVADOR Primary Care [...] ION RX PLAN Oct 23, 2016 [id number] [phone] RICKEY UNDERWOOD PATIENT [facility] Oct 23, 2016 [id number] [phone] RICKEY UNDERWOOD PATIENT [facility] Oct 23, 2016 [id number] [phone] RICKEY UNEDRWOOD PATIENT Selected Encounter This section includes the information on record at [place] for the Encounter. Date/Time Encounter Type Encounter Description Reason Provider Source Mar 27, 2025 02:15 PM OFFICE O/P EST HI 40 MIN PRIMARY CARE/MEDICINE ICD-10-CM K51.90 Ulcerative colitis, unspecified, without complications RICKEY SALVADOR [place] Encounter Template Text not used by [place] Assessments - Encounter Diagnoses This section includes the primary and secondary diagnoses documented for the Encounter. Date/Time Primary/Secondary Diagnosis Diagnosis Name Provider Source Apr 07, 2025 02:58 PM PRIMARY Ulcerative colitis, unspecified, without complications [facility] Apr 07, 2025 02:58 PM SECONDARY Bariatric surgery status [facility] Apr 07, 2025 02:58 PM SECONDARY Chronic kidney disease, stage 3b [facility] Apr 07, 2025 02:58 PM SECONDARY Essential (primary) hypertension [facility] Apr 07, 2025 02:58 PM SECONDARY Gastro-esophageal reflux disease without esophagitis [facility] Apr 07, 2025 02:58 PM SECONDARY Liver transplant status [facility] Apr 07, 2025 02:58 PM SECONDARY Primary sclerosing cholangitis [facility] Plan of Treatment: Future Appointments (+ 6 months) and Future Tests (+/- 45 days) The Plan of Treatment section includes future care activities for the patient from all [facility]. This section includes future appointments and future orders which are active, pending or scheduled. Future Appointments This section includes appointments that were scheduled to occur 6 months from the date of the Encounter, up to a maximum of 20 appointments. The data comes from all [facility]. Appointment Date/Time Appointment Type Appointme nt Facility Name Apr 23, 2025 02:30 PM AMBULATORY - MEDICINE [facility] May 09, 2025 10:00 AM AMBULATORY - MEDICINE [facility] Active, Pending, and Scheduled Orders This section includes a listing of several types of active, pending, and scheduled orders, including clinic medications orders, diagnostic test orders, procedure orders and consult orders; where the start date of the order is 45 days before the date of the Encounter or 45 days after the date of theEncounter. The data comes from all [facility]. Test Date/Time Test Type Test Details Facility Name Mar 27, 2025 09:31 PM Consult Order GI OTHER [facility]PAT[facility] [place] Cons Staple Shear Operator's Choice [facility] Vital Signs: All taken on the encounter date This section contains inpatient and outpatient Vital Signs collected on the date of the Encounter. Date/Time Temperature Pulse Blood Pressure Respiratory Rate SP02 Pain Height Weight Body Mass Index Source Mar 27, 2025 02:31 PM 140/82 [facility] Mar 27, 2025 02:26 PM 97.8 74 153/98 18 97 0 238.8 31 [facility] Social History: Smoking Status (Most current) and Tobacco Use (All prior to encounter date) This section includes the most current, and the historical, smoking and tobacco- related health factors from the [place] facility where the Encounter took place. Current Smoking Status This section includes the most current smoking, or tobacco-related health factor, from the [place] facility where the Encounter took place. Date/Time Current Smoking Status Comment Jessenia ity Mar 27, 2025 02:15 PM VA-TOBACCO NEVER U SED CIGARETTES [facility] Tobacco Use History This section includes a history of the smoking, or tobacco-related health factors, that were collected on or before the date of the Encounter. The data comes from the [place] facility where the Encounter took place. Date/Time Smoking Status/Tobacco Use Comment F acility Mar 27, 2025 02:15 PM VA-TOBACCO NEVER U SED OTHER TYPE [facility] Mar 28, 2024 01:15 PM VA-TOBACCO NEVER USED [facility] 2023 09:00 AM VA-TOBACCO NEVER USED [facility] Encounter Notes: All associated encounter notes This section contains the clinical notes associated to the Encounter. Date/Time Encounter Note(s) Provider Source Mar 27, 2025 02:34 PM NURSING NOTE: LOCAL TITLE: V15 PACT FACE TO FACE NOTE ST[facility] STANDARD TITLE: NURSING NOTE DATE OF NOTE: MAR 27, 2025@14:34 ENTRY DATE: MAR 27, 2025@14:34:35 AUTHOR: NANNETTE PAUL EXP COSIGNER: URGENCY: STATUS: COMPLETED Provider Visit: Patient Identifiers : Full Name Date of Reason for visit: Established Follow-Up Mode of Arrival: Ambulatory Allergy Review: CARRIEINOPRIL 2023 (HISTORICAL) Symptoms: ANGIOEDEMA Allergy list reviewed and remains current. Recent Vital Signs: Temperature: 97.8 F [36.6 C] (03/27/2025 14:26) Pulse: 74 (03/27/2025 14:26) Respiration: 18 (03/27/2025 14:26) B/P: 140/82 (03/27/2025 14:31) Pain: 0 (03/27/2025 14:26) Wt: 238.8 lb [108.32 kg] (03/27/2025 14:26) Ht: 74 in [188.0 cm] (03/28/2024 13:28) BMI: 30.7 POX: 97% (03/27/2025 14:) PERSONAL HEALTH INVENTORY Notes: No data available for PHI note titles PERSONAL HEALTH INVENTORY - MAP: No data available for PHI MAP What matters most to you in your life right now? - [place] Response: penitentiary family Would you like to discuss any personal problem, family problem, alcohol use, drug use, or a mental or emotional illness? No Contact provided Primary Care phone number and encouraged to call if any questions or concerns. Review that after hours nurse line [phone] and emergency room are available 15/05 for patient use. Contact verbalized good understanding. MST Screening - V: Patient denies experiencing sexual trauma (MST). Suicide Screen - V: C-SSRS Screening Parker Suicide Severity Rating Scale (C-SSRS) screener 1. Over the past month, have you [...] responses to other questions. Alcohol Use Screen (AUDIT-C) - V: Alcohol Screen: SCREEN FOR ALCOHOL (AUDIT-C) An alcohol screening test (AUDIT-C) was negative (score=3). 1. How often did you have a [...] you were drinking in the past year? One or two drinks 3. How often did you have six or more drinks on one occasion in the past year? Never Depression Screening - V: Perform PHQ-2 A PHQ-2 screen was performed. The score was 0 which is a negative screen for depression. Over the past two weeks, how often have you been bothered by the following problems? 1. Little interest or pleasure in doing things Not at all 2. Feeling down, depressed, or hopeless Not at all Tobacco Use Screening - AT,DE,L,M,N,P,PH,PS,RT,S,U: The patient has never smoked cigarettes. The patient has never used other types of tobacco. Learning Assessment: - * This patient's learning ABILITIES, BARRIERS to learning, CULTURAL and CONGREGATION beliefs, and learning PREFERENCES were assessed. Following are findings of note: Patient reads well. Patient has the following hearing/auditory barrier(s) to consider when teaching: Othertinnitus Patient has the following speech barrier to consider when teaching: No speech barrier identified. LANGUAGE Patient reports that Finnish is preferred language for healthcare. Patient has the following language barrier to consider when teaching: No language barrier has been identified. Patient has the following vision barrier(s) to consider when teaching: Requires glasses/contacts for reading Patient has the following dexterity/mobility barrier(s) to consider when teaching: No dexterity/mobility barrier has been identified. Patient has the following cognitive/memory barrier(s) to consider when teaching: No cognitive/memory barrier has been identified. Patient has the following emotional/psychological barrier(s) to consider when teaching: No emotional/psychosocial barrier has been identified. Patient has the following social support deficit(s) to consider when teaching: No social support issues have been identified. Patient reports learning preference is to refer to handouts. /loni/ NANNETTE PAUL Licensed Practical Nurse Signed: 03/27/2025 14:[address] [facility] Mar 27, 2025 02:24 PM PRIMARY CARE NOTE: LOCAL TITLE: PRIMARY CARE PROVIDER ESTABLISHED VISIT [facility] STANDARD TITLE: PRIMARY CARE NOTE DATE OF NOTE: MAR 27, 2025@14:24 ENTRY DATE: MAR 27, 2025@14:24:57 AUTHOR: YOLANDA BEASLEY COSIGNER: RICKEY SALVADOR URGENCY: STATUS: COMPLETED PRIMARY CARE PROVIDER ESTABLISHED VISIT ST Has ADDENDA ======== PRIMARY CARE PROVIDER ESTABLISHED VISIT [facility] CLINIC NOTE ======== RICKEY FLOREZEW is a 55 year old MALE with a PMHx of primary sclerosing cholangitis c/b cirrhosis s/p OLT in 2016, CKD stage 3b, and GERD who presents to clinic for a routine visit. He receives care through [facility] with his transplant team, GI/hepatology, and nephrology. He has a private practice PCP he has been seeing for a while. He is doing well overall but recently was started on ursodiol after GGT was elevated and MRI showed findings consistent with recurrence of PSC. Additionally, a colonoscopy he had last year revealed ulcers in his colon and he was started on Entyvio (mesalamine discontinued) and repeat colonoscopy showed resolution of ulcers. He otherwise asks to have an appointment scheduled with dermatology as he was lost to follow-up after initial visit last year. Additionally, he would like to establish care with [facility] hepatology, too. He asks for this in case he were to lose coverage through [facility] and he also used to see Dr. Cunnnigham who is now at the [facility]. MEDICAL HISTORY: 1) Ulcerative Colitis ([facility] [id number]) 2) Sclerosing cholangitis 3) HTN - Hypertension ([facility] [id number]) 4) Chronic Kidney Disease Stage 3B ([facility] [id number]) 5) Liver transplant recipient 6) Exposure to potentially hazardous substance Surgical history: Liver transplant, 2016 Social history: Drinks alcohol infrequently. He is and has twin 16 year- old boys, a daughter in her 30s from a prior marriage, and a ~1 yo grandchild. 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 ALLERGIES: LISINOPRIL Vital Signs: Pulse: 86 (03/28/2024 13:28) BP: 128/86 (03/28/2024 13:28) RESP: 16 (03/28/2024 13:28) Pain: 0 (03/28/2024 13:28) Weight: 262.1 lb [118.89 kg] (03/28/2024 13:28) BMI: 33.7 PHYSICAL EXAM: General: Well appearing, no acute distress HEENT: Atraumatic, symmetric, sclera anicteric Neck: No JVD CV: RRR, normal S1/S2 Lungs: CTAB, normal work of breathing Abd: Non-tender, non-distended, bowel sounds appreciated Skin: Warm and dry; no obvious rashes or lesions Neurological: No focal deficits, normal gait without any assistive device Extremities: Normal strength and sensation; no edema IM - IMMUNIZATIONS ADMINISTERED Immunization Series Date Facility Reaction Info COVID-19 (PFIZER), MRNA, LNP-S, * 1 11/19/2021 [facility] EPIC COVID-19 (PFIZER), MRNA, LNP-S, * 1 11/19/2021 [facility] PNEUMOCOCCAL CONJUGATE PCV 13 1 08/06/2018 [facility] Lab Results WBC 6.67 01/24/2025 HGB 15.4 01/24/2025 HCT 46.8 01/24/2025 MCV 84.5 01/24/2025 LABPLAT 219 01/24/2025 Lab Results GLUCOSE 62 (L) 01/24/2025 CALCIUM 9.6 01/24/2025 SODIUM 143 01/24/2025 POTASSIUM 4.2 01/24/2025 MAGNESIUM 1.6 11/22/2019 CHLORIDE 102 01/24/2025 BUNSER 27 (H) 01/24/2025 CREATININE 2.07 (H) 01/24/2025 ALT 40 01/24/2025 AST 33 01/24/2025 ALKPHOS 122 01/24/2025 BILITOT 0.5 01/24/2025 = Health Care Maintenance = - Colonoscopy up to date - Dermatology for FBSE - Live vaccines are contraindicated in the setting of immunosuppression. Annual flu vaccine is recommended by transplant providers. ASSESSMENT/PLAN: GAUTAMRICKEY CASTLE is a 55 year old MALE seen for follow- up. #. Primary sclerosing cholangitis s/p OLT in 2016 #. History of liver transplant #. Recurrence of PSC - Follows with the transplant hepatology service at [facility]. - Immunosuppresive therapy: tacrolimus 3 mg twice daily and everolimus 2 mg in the morning and 1 mg at night - MRI/MRCP was obtained on 02/14/2025 for elevated GGT which showed new beading, mild stricturing, and dilation of the intrahepatic ducts consistent with recurrence of PSC - Restarted on ursodiol 500mg and has been tolerating it well - Yearly lipid profile and urine prot/creat ratio as he is on mTOR inhibitor is and yearly vitamin D level (goal >30) is recommended (gets labs through [facility] providers/PCP) but [facility] #. Ulcerative colitis - Follows at [facility] - Discontinued mesalamine and started Entyvio after colonoscopy last year revealed ulcers that resolved on repeat colonoscopy after Entyvio was started #. GERD - Stable on omeprazole 20mg - Continue PPI #. CKD stage 3b - Follows with [facility] nephrology - ARF associated with transplant + calcineurin toxicity - Baseline creatinine 1.5-1.9 - Recently was 2.2 with eGFR 34 ml/min but previously worse and was attributed to ARB dose increase and immunosuppresants but after dose adjustments, renal function improved #. History of Babar-en-Y surgery - At risk for secondary hyperoxalosis - Needs to maintain adequate hydration #. Hypertension - Managed by [facility] plant protection supervisor - Had orthostatic blood pressure after weight loss with GLP-1 agonist - Decreased losartan to 50mg due to orthostatic symptoms and continued chlorthalidone as it helps with leg edema per patient #. Actinic keratosis: cumulative sun exposore with resultant sun damage to skin. Doesn't report seeing a supervisor detasseling crew for a full body skin exam. Discussed importance given sun exposure and immunosuppression, specifically being on everolimus. He was seen by dermatology in March 2024 but deferred treatment at that time due to an upcoming penitentiary alliance party. #. Obesity - Started on Zepbound by outside PCP and has lost 30-40 pounds Plan: - Hepatology consulted - E-consult sent to dermatology for appointment request - RTC in one year or sooner if needed Patient seen and discussed with Dr. Salvador. /loni/ YOLANDA BEASLEY INTERNAL MEDICINE RESIDENT, PGY-3 Signed: 03/29/2025 12:27 /loni/ RICKEY SALVADOR MD, MD Cosigned: 03/31/2025 10:03 03/31/2025 ADDENDUM STATUS: COMPLETED I spent 47 minutes on some or all of the following: chart review, history, physical examination, treatment planning, education, and counseling of the patients/family/caregiver, placing orders, communicating with other health care providers, and documentation in the electronic health record. CLINIC ATTENDING I have personally seen and evaluated patient, reviewed CPRS and discussed case with resident whom I supervised during this visit. Detailed history and findings as noted by resident. I agree with the plan as outlined in the resident note which I discussed with the patient. He was advised to contact us or RTC/ER for interim problems. /loni/ RICKEY SALVADOR MD, MD Signed: 03/31/2025 10:03 YOLANDA BEASLEY [facility]
--- OUTSIDE RECORDS SUMMARY | 2025-04-29 08:40 | XMS_ITS | Clinical Summary ---
Author Organization [facility] Address [address] [place] [id number] Care Team Providers Care Assistant Paralegal Name Role Phone Kyle Kapoor MD Primary Care Provider [phone] Allergies No known active allergies Social History Tobacco Use Types Packs/Day Years Used Date Smoking Tobacco: Never Smokeless Tobacco: Never Alcohol Use Standard Drinks/Week Comments Yes 0 (1 standard drink = 0.6 oz pur e alcohol) social Sex and Gender Information Value Date Recorded Sex Assigned at Not on file Legal Sex Male 9:37 AM CDT Gender Identity Not on file Sexual Orientation Not on file Last Filed Vital Signs Vital Sign Reading Time Taken Comments Blood Pressure 133/90 02/27/2022 10:54 AM CDT Pulse 67 02/27/2022 10:54 AM CDT Temperature 36.9 C (98.4 F) 02/27/2022 9:42 AM CDT Respiratory Rate 18 02/27/2022 10:54 AM CDT Oxygen Saturation 100% 02/27/2022 10:54 AM CDT Inhaled Oxygen Concentration - - Weight 108.9 kg (240 lb) 02/27/2022 9:42 AM CDT Height 188 cm (6' 2) 02/27/2022 9:42 AM CDT Body Mass Index 30.81 02/27/2022 9:42 AM CDT Plan of Treatment Health Maintenance Due Date Last Done Comments Colorectal Cancer Screening Colonoscopy (10 Years) 1968 Annual Physical 1971 Hepatitis C 1986 DTaP, Tdap and Td Vaccines (1 - Tdap) 1987 Hepatitis B Vaccines (1 of 3 - 19+ 3-dose series) 1987 Zoster Vaccines (1 of 2) 2018 Pneumococcal Vaccine: 50+ Years (3 of 3 - PCV20 or PCV21) 08/06/2023 08/06/2018, 12/28/2015 COVID-19 Vaccine ( season) 2024 11/19/2021, 06/13/2021, 10/30/2020, Additional history exists Meningococcal B Vaccine Aged Out No l onger eligible based on patient's age to complete this topic Meningococcal Vaccine Aged Out No ochoa atul eligible based on patient's age to complete this topic RSV Immunizations Under 20 Months Aged Out No longer eligible based on patient's age to complete this topic Insurance [facility] Care Teams Assistant Paralegal Relationship Specialty Start Date End Date Kyle Kapoor MD [phone] [address] PCP - General FAMILY PRACTICE 02/27/22
--- OUTSIDE RECORDS SUMMARY | 2025-04-29 08:40 | XMS_ITS | Continuity of Care Document ---
Author Name [facility] Organization [facility] Care Team Providers Care Access Manager Name Role Phone [facility] Unavailable Unavailable Problems Combined list of problems from [facility] facilities. It does not include entries that were removed or entered in error. Problem Status Onset Date Problem Type Date of Resolution Comments Source Chronic Kidney Disease Stage 3B ([facility] [id number]) Active Condition [facility] Exposure to potentially hazardous substance Active Condition [facility] HTN - Hypertension ([facility] [id number]) Active Condition [facility] Liver transplant recipient Active Condition [facility] Sclerosing cholangitis Active Condition [facility] Ulcerative Colitis ([facility] [id number]) Active Condition [facility] Diagnosis: ICD-10-CM L57.0 Actinic keratosis Active Diagnosis [facility] Diagnosis: ICD-10-CM K51.90 Ulcerative colitis, unspecified, without complications Active Diagnosis [facility] Medications Combined list of outpatient medications from [facility] facilities.Medications provided include 1) outpatient medications from the last 15 months, and 2) patient-reported medications. Medication Details Route Status Patient Instructions Prescription Expires Prescription Number Last Dispense Date Ordering Provider Order Date Order Qty Source CHLORTHALID ONE 25MG TAB TAKE ONE TABLET BY MOUTH ONCE A DAY ORAL ACTIVE RAMNOT,AM JANY 2023 [facility] EVEROLIMUS 0.5MG TAB TAKE FOUR TABLETS BY MOUTH EVERY MORNING AND TAKE TWO TABLETS BY MOUTH PM ORAL ACTIVE RAMNOT,AM JANY 2024 [facility] [place] POTASSIUM 100MG TAB TAKE ONE-HALF TABLET BY MOUTH ONCE A DAY ORAL ACTIVE RAMNOT,AM JANY 2024 [facility] OMEPRAZOLE 20MG CAP,EC TAKE 1 CAPSULE BY MOUTH EVERY MORNING BEFORE A MEAL ORAL ACTIVE SAISCOTTY Bryan Ingram 2022 [facility] TACROLIMUS (PROGRAF) 1MG CAP TAKE 3 CAPSULES BY MOUTH TWICE A DAY ORAL ACTIVE RAMNOT,AM JANY 2024 [facility] URSODIOL 500MG TAB TAKE ONE TABLET BY MOUTH ONCE A DAY ORAL ACTIVE RAMNOT,AM JANY 2024 [facility] Allergies, Adverse Reactions, Alerts Combined list of allergies from [facility] facilities. It does not include entries that were removed or entered in error. Substance Category Reaction Severity Reaction type Status Date Reported Comments Source LISINOPRIL Propensity to adverse reactions to drug (finding) Angioedema SEVERE active [facility] Immunizations Combined list of available immunizations from the [facility] facilities. Immunization Series Date Given Administered By Site Reaction Lot Number CVX Code Drug Swim Coach Status Comments Source COVID-19 ([employer]), MRNA, LNP-S, PF, 30 MCG/0.3 ML DOSE 1 2021 208 complet ed HISTORICA L INFORMATI ON - FROM OTHER PROVIDER, [facility] COVID-19 ([employer]), MRNA, LNP-S, PF, 30 MCG/0.3 ML DOSE, REMI-SUCROSE (AGES 12+ YEARS) 1 2021 217 complet ed HISTORICA L INFORMATI ON - FROM OTHER REGISTRY, [facility] N PNEUMOCOCCAL CONJUGATE PCV 13 1 2017 133 complet ed HISTORICA L INFORMATI ON - FROM OTHER REGISTRY, [facility] N Vital Signs Combined list of inpatient and outpatient Vital Signs from [facility], ranging from 12 months to all on record, depending upon the facility. Vital Sign Value Date Comments Source SYSTOLIC BLOOD PRESSURE 153 03/27/2025 14:26:44 [facility] DIASTOLIC BLOOD PRESSURE 98 03/27/2025 14:26:44 [facility] PULSE OXIMETRY 97 03/27/2025 14:26:44 [facility] WEIGHT 238.8 03/27/2025 14:26:44 [facility] BMI 31 kg/m2 03/27/2025 14:26:44 [facility] PAIN 0 03/27/2025 14:26:44 [facility] TEMPERATURE 97.8 03/27/2025 14:26:44 [facility] PULSE 74 03/27/2025 14:26:44 [facility] RESPIRATION 18 03/27/2025 14:26:44 [facility] Encounters Combined list of: 1) Encounters from Department of [facility] Affairs facilities going backup to the last 18 months, not all [place] inpatient encounters are included; 2) Encounters from the Department of [facility] facilities going backup to 280 months. Location Location Details Encounter Type Encounter Number Reason For Visit Attending Provider ADM Date DC Date Status Disposition Source [facility] Outpatient Encounter [id number] 11/15 [facility] OFFICE O/P EST MOD 30 MIN [id number] Diagnos is: ICD-10- CM K51.90 Ulcerat nikhil colitis , unspeci fied, without complic ations EMILY GUADARRAMA D A 03/28 [facility] OFFICE O/P NEW LOW 30 MIN [id number] Diagnos is: ICD-10- CM L57.0 Actinic keratos is YING JEROME 04/15 [facility] Outpatient Encounter [id number] 05/08 [facility] [id number] 01/13 [facility] Outpatient Encounter [id number] RADHA CERNA A 01/13 [facility] OFFICE O/P EST HI 40 MIN [id number] Diagnos is: ICD-10- CM K51.90 Ulcerat nikhil colitis , unspeci fied, without complic ations EMILY GUADARRAMA A 03/27 [facility] Outpatient Encounter [id number] 03/28 [facility] OFFICE O/P EST LOW 20 MIN [id number] Diagnos is: ICD-10- CM L57.0 Actinic keratos is ROQUE BOYKIN A 04/23 [facility] Social History Combined list of available smoking, tobacco, and other social history from Department of Defense and Veterans Affairs facilities. Social History Type Response Date Comment Sourc e Tobacco smoking status NHIS VA-TOBACCO NEVER USED CIGARETTES 03/27/2025 [facility] History of tobacco use OK-TOBACCO NEVER USED OTHER TYPE 03/27/2025 [facility] History of tobacco use VA-TOBACCO NEVER USED 03/28/2024 [facility] History of tobacco use VA-TOBACCO NEVER USED 2023 [facility] Plan of Care List of future care activities from Department of [facility] Affairs facilities. Additional future care activities may be listed in the Assessment and Plan section. Date/Time Care Activity Care Activity Detail Facili ty 05/09/2025 AMBULATORY - MEDICINE AMBULATORY - MEDICI NE [facility]
--- OUTSIDE RECORDS SUMMARY | 2025-04-29 08:40 | XMS_ITS | Clinical Summary ---
Author Organization [facility] Care Team Providers Care Coo Name Role Phone Unavailable Primary Care Provider Unavailabl e Social History Tobacco Use Types Packs/Day Years Used Date Smoking Tobacco: Never Assessed Sex and Gender Information Value Date Recorded Sex Assigned at Not on file Legal Sex Male 12:39 PM PATIENT SCHEDULER Gender Identity Not on file Sexual Orientation [...]
--- OUTSIDE RECORDS SUMMARY | 2025-04-29 08:40 | XMS_ITS ---
Author Name [facility] Organization [facility] Address [address] [place] [address] Care Team Providers Care Motorcoach Driver Name Role Phone RICKEY GUADARRAMA Primary Care Provider UnavailYOLANDA Shook Unavailable Unavailable [...] ION RX PLAN Oct 23, 2016 [id number] [phone] RICKEY UNDERWOOD PATIENT [facility] Oct 23, 2016 [id number] [phone] RICKEY UNDERWOOD PATIENT [facility] POINT OF SERVICE [facility] Oct 23, 2016 [id number] RICKEY UNDERWOOD PATIENT Selected Encounter This section includes the information on record at [place] for the Encounter. Date/Time Encounter Type Encounter Description Reason Provider Source Apr 23, 2025 02:30 PM OFFICE O/P EST LOW 20 MIN DERMATOLOGY ICD-10-CM L57.0 Actinic keratosis SINAN BOYKIN [facility] Encounter Template Text not used by [place] Assessments - Encounter Diagnoses This section includes the primary and secondary diagnoses documented for the Encounter. Date/Time Primary/Secondary Diagnosis Diagnosis Name Provider Source Apr 23, 2025 03:02 PM PRIMARY Actinic keratosis [facility] Apr 23, 2025 03:02 PM SECONDARY Encounter for screening for malignant neoplasm of skin [facility] Apr 23, 2025 03:02 PM SECONDARY Inflamed seborrheic keratosis [facility] Apr 23, 2025 03:02 PM SECONDARY Melanocytic nevi, unspecified [facility] Apr 23, 2025 03:02 PM SECONDARY Other melanin hyperpigmentation [facility] Apr 23, 2025 03:02 PM SECONDARY Other seborrheic keratosis [facility] Plan of Treatment: Future Appointments (+ 6 months) and Future Tests (+/- 45 days) The Plan of Treatment section includes future care activities for the patient [facility] [place] [facility] This section includes future appointments and future orders which are active, pending or scheduled. Future Appointments This section includes appointments that were scheduled to occur 6 months from the date of the Encounter, up to a maximum of 20 appointments. The data comes from all [facility]. Appointment Date/Time Appointment Type Appointme nt Facility Name May 09, 2025 10:00 AM AMBULATORY - MEDICINE [facility] Active, Pending, and Scheduled Orders This section includes a listing of several types of active, pending, and scheduled orders, including clinic medications orders, diagnostic test orders, procedure orders and consult orders; where the start date of the order is 45 days before the date of the Encounter or 45 days after the date of theEncounter. The data comes from all [facility]. Test Date/Time Test Type Test Details Facility Name Mar 27, 2025 09:31 PM Consult Order GI OTHER L [facility]ER [facility]PATIENT [place] Cons Shoes Hand Sewer's Choice [facility] Social History: Smoking Status (Most current) and Tobacco Use (All prior to encounter date) This section includes the most current, and the historical, smoking and tobacco- related health factors from the [place] facility where the Encounter took place. Current Smoking Status This section includes the most current smoking, or tobacco-related health factor, from the [facility] where the Encounter took place. Date/Time Current Smoking Status Comment Facil ity Mar 27, 2025 02:15 PM VA-TOBACCO NEVER U SED CIGARETTES [facility] Tobacco Use History This section includes a history of the smoking, or tobacco-related health factors, that were collected on or before the date of the Encounter. The data comes from the [place] facility where the Encounter took place. Date/Time Smoking Status/Tobacco Use Comment F acility Mar 27, 2025 02:15 PM VA-TOBACCO NEVER U SED OTHER TYPE [facility] Mar 28, 2024 01:15 PM VA-TOBACCO NEVER USED [facility] 2023 09:00 AM VA-TOBACCO NEVER USED [facility] Encounter Notes: All associated encounter notes This section contains the clinical notes associated to the Encounter. Date/Time Encounter Note(s) Provider Source Apr 23, 2025 02:41 PM DERMATOLOGY CONSUL T: LOCAL TITLE: DERMATOLOGY CONSULT [facility] STANDARD TITLE: DERMATOLOGY CONSULT DATE OF NOTE: APR 23, 2025@14:41 ENTRY DATE: APR 23, 2025@14:41:43 AUTHOR: HUSAM GEE COSIGNER: JIMMY BOYKIN URGENCY: STATUS: COMPLETED DERMATOLOGY CONSULT ST Has ADDENDA DERM CONSULT NOTE RICKEY FLOREZ TIN is a 55 year MALE with no history of skin cancer presenting for CONSULTATION OF: Patient was seen about one year ago but deferred treatment of AKs due to upcoming event. Never made follow-up appointment because he didn't know which number to call then other health conditions required attention. Also would need a FBSE - only immuunosuppresive therapies for prior liver transplant Today: - H/o primary sclerosing cholangitis c/b cirrhosis s/p OLT in 2016, CKD stage 3b on Immunosuppresive therapy: tacrolimus 3 mg twice daily and everolimus 2 mg in the morning and 1 mg at night - Has some rough spots on the face Allergies: LISINOPRIL ROS: all systems reviewed and were negative except as noted in the HPI OBJECTIVE Physical Examination - Gritty papules on the face - Stuck on papule on the back with erythema - Scattered stuck-on appearing brown papules on trunk and extremities - Scattered brown well circumscribed macules on trunk and extremities - Multiple bright red regular-appearing papules on trunk and extremities otherwise: General Appearance: Well Appearing MALE, NAD Mood/Affect: pleasant/appropriate ASSESSMENT AND PLAN #Seborrheic keratoses-inflamed: -Nature of condition reviewed -Discussed options for management including no treatment vs. Cryotherapy/LN2 -Patient elected for Cryotherapy/LN2 risks (including recurrence, pain, blistering and scarring), benefits and alternatives reviewed - Location: back -Total of 1 sites treated x 5-7sec each with Cryotherapy/LN2, blister care reviewed -Treated for symptomatic reasons, not for cosmetic reasons # Actinic keratoses LN2 x 7 sec x 6 lesions Blister care and photoprotection # Seborrheic keratoses Benign, reassurance # Nevi, benign ABCDEs reviewed Monthly self skin examinations Yearly MD full body skin examination Photoprotection #On immunosuppression for liver transplant - Immunosuppresive therapy: tacrolimus 3 mg twice daily and everolimus 2 mg in the morning and 1 mg at night - Plan to continue to monitor yearly -No additional lesions suspicious for skin cancer on areas examined. Pt phone: RTC 1 year or sooner PRN /loni/ HUSAM GEE MD, MS DERMATOLOGY RESIDENT Signed: 04/23/2025 15:02 /loni/ JIMMY BOYKIN MD STAFF EXHIBIT DESIGNER Cosigned: 04/23/2025 15:17 04/23/2025 ADDENDUM STATUS: COMPLETED Reviewed documentation and agree with history, physical examination, assessment, and plan. I was immediately available for the duration of the visit. /loni/ JIMMY BOYKIN MD STAFF EXHIBIT DESIGNER Signed: 04/23/2025 15:18 HUSAM GEE [facility]
--- OUTSIDE RECORDS SUMMARY | 2025-04-29 08:40 | XMS_ITS | Clinical Summary ---
Author Organization [facility] Address [address] [place] [address] Care Team Providers Care Coal Trimmer Machine Operator Name Role Phone Kyle Kapoor MD Primary Care Provider + Source Comments [facility],non-[facility] Affiliates and Associated Physician Practices is amultiple site organization consisting of ambulatory clinics and hospital sitesin [place], [place], [place] and [place]. This disclosure is being madepursuant to the Care Everywhere program and may not contain all information available regarding this patient. Last updated 18.[facility] Allergies Active Allergy Reactions Criticality Noted Date [...] sclerosing cholangitis) 09/08/2021 Annual physical exam - [facility] ent 07/22/2021 High cholesterol 10/23/2020 High risk [...] regardless of whether he advances to [facility]. 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 Not on file Not on file Not on file Last Filed Vital Signs Vital Sign Reading Time Taken Comments Blood Pressure 146/98 09/26/2022 2:14 PM ETL DATABASE DEVELOPER Pulse 85 09/26/2022 1:01 PM ETL DATABASE DEVELOPER Temperature 36.7 C (98.1 F) 09/25/2014 2:05 PM ETL DATABASE DEVELOPER Respiratory Rate 16 09/26/2022 1:01 PM ETL DATABASE DEVELOPER Oxygen Saturation 98% 09/26/2022 1:01 PM ETL DATABASE DEVELOPER Inhaled Oxygen Concentration - - Weight 116.9 kg (257 lb 12.8 oz) 09/26/2022 1:01 PM ETL DATABASE DEVELOPER Height 186.1 cm (6' 1.25) 09/26/2022 1:01 PM CS T Body Mass Index 33.78 09/26/2022 1:01 PM ETL DATABASE DEVELOPER Plan of Treatment Health Maintenance Due Date [...] PNEUMOCOCCAL VACCINE 50+ (3 of 3 - PCV20 or PCV21) 12/27/2020 08/06/2018, 12/28/2015 PROSTATE [...] 6:53 AM CDT Annual physical exam - [facility] LIPID PROFILE W TCHOL/HDL Routine 07/11/2022 6:53 AM CDT Annual physical exam - [facility] Department PROSTATE SPECIFIC ANTIGEN SCREEN Routine 07/11/2022 6:53 AM CDT Annual physical exam - [facility] Department HEPATITIS C ANTIBODY Routine 07/11/2022 6:53 AM CDT Annual physical exam - [facility] Department from Last 3 Months or Most [...] Agency Comment Lab Testing performed at: [facility] [address] [id number] us Lencho Cortez MD LAB - CHEMISTRY ORDERABLES Fi nal Result [facility] ACCOUNT BILL [address] [place] [address] * (ABNORMAL) COMPREHENSIVE METABOLIC PANEL (07/11/2022 6:53 [...] Resulting Agency Comment [facility] [address] [id number] us Lencho Cortez MD LAB - CHEMISTRY ORDERABLES Fi nal Result [facility] ACCOUNT BILL [address] [place] [address] * PROSTATE SPECIFIC ANTIGEN SCREEN (07/11/2022 6:53 AM CDT) PSA 0.9 0.0 - 4.0 ng/mL [facility] ACCOUNT BILL Comment: Teena ECLIA methodology. . According to the [employer], Serum PSA should decrease and [...] Resulting Agency Comment [facility]: [facility] [address] [id number] Lencho Cortez MD LAB - CHEMISTRY ORDERABLES Fi nal Result Performing Organization Address City/[facility]/ZIP Co de Phone Number [facility] ACCOUNT BILL [address] [place] [address] * HEPATITIS C ANTIBODY (07/11/2022 6:53 AM [...] support the diagnosis of acute HCV infection. [facility] offers Hepatitis C Virus (HCV) RNA, Diagnosis, [place] ([id number]) and Hepatitis C Virus (HCV) Antibody with reflex to Quantitative Real-time PCR ([id number]). FASTING Blood BLOOD SPECIMEN / Unknown 07/11/2022 6:53 AM CDT 07/12/2022 Narrative Resulting Agency Comment [facility]: [facility] [address] [id number] us Lencho Cortez MD LAB - CHEMISTRY ORDERABLES Fi nal Result Performing Organization Address City/[facility]/ZIP Co de Phone Number [facility] ACCOUNT BILL [address] [place] [address] from Last 3 Months or Most Recently Relevant to Health Maintenance Care Teams Coal Trimmer Machine Operator Relationship Specialty Start Date End Date Kyle Kapoor MD [address] [place] [id number] PCP - General 09/01/14
[2025-04-30 12:08] LABS: CA 19-9 18 U/mL (0-35)
== END 2025-04-29 08:36 | disposition home or self-care (01) ==
LOC: ANHLAB 08:37
PROVIDERS: PCP Family Medicine Adolescent Medicine; Visit Provider Internal Medicine Gastroenterology
DX: K83.01 Primary sclerosing cholangitis (principal); Z94.4 Liver transplant status
CPT/HCPCS: 36415; 82105; 86301

== ENCOUNTER 2025-09-11 08:40 | Outpatient (CLI) | payer OTHER, SELFPAY ==
[2025-09-11 09:55] LABS: Total Protein Urine Random 7 mg/dL; Ur Ttl Prot Creatinine Ratio 0.05 mg/mg (0-0.20)
[2025-09-11 09:58] LABS: MALB Creatinine Ratio 8.0 mg/g (0-30)
== END 2025-09-11 08:41 | disposition home or self-care (01) ==
PROVIDERS: PCP Family Medicine Adolescent Medicine
DX: N18.32 Chronic kidney disease, stage 3b (principal); R80.1 Persistent proteinuria, unspecified
CPT/HCPCS: 82043; 82570; 84156